=== PATIENT | female | born 1935 | race Caucasian/White ===

== ENCOUNTER → 2019-01-19 09:19 | Outpatient (CLI) | payer MEDICARE, OTHER, SELFPAY ==
[2019-01-19 10:27] LABS: Blood Urea Nitrogen 21 mg/dL (7-17); Calcium 10.4 mg/dL (8.4-10.2); Carbon Dioxide 27 mmol/L (22-32); Chloride 101 mmol/L (98-107); Cholesterol 179 mg/dL (140-199); Glucose 129 mg/dL (80-110); HDL Cholesterol 58 mg/dL (40-60); HEMOLYSIS < 15 (0-50); LDL Cholesterol Calculated 97 mg/dL (<100); Potassium 3.6 mmol/L (3.4-5.1); Sodium 138 mmol/L (137-145); Triglycerides 122 mg/dL (35-150)
== END ==
PROVIDERS: PCP Internal Medicine; Visit Provider Internal Medicine
DX: I10 Essential (primary) hypertension (principal); E78.00 Pure hypercholesterolemia, unspecified; E83.52 Hypercalcemia
CPT/HCPCS: 36415; 80048; 80061

== ENCOUNTER → 2019-02-20 14:35 | Outpatient (CLI) | payer MEDICARE, OTHER, SELFPAY ==
--- NOTE | 2019-02-21 13:22 | DI.NM.S_ITS ---
DATE OF SERVICE: 02/20/2019 ORDERING PROVIDER: Jose A Mendoza MD PROCEDURE PERFORMED: Pharmacologic vasodilator stress and rest myocardial perfusion imaging with gating to assess ejection fraction and regional wall motion. INDICATIONS: The patient is an 84-year-old female with exertional chest discomfort who recently was unable to complete a standard treadmill test because of dyspnea. CARDIAC STRESS: Per protocol, the patient was given 0.4 mg of regadenoson IV with additional stress by walking on the treadmill. With this, she had an accelerated heart response with a resting heart rate of 108 bpm increasing to a maximum of 138 bpm (100% of her predicted maximum). She had a normal blood pressure response. She had no chest discomfort but mild dyspnea. Her resting ECG shows sinus rhythm with fairly normal ST-segment shifts. There were no significant ST-segment shifts or arrhythmias. Per protocol, she was injected with 25.5 mCi of technetium-99 Myoview and was imaged 20 minutes later using a gated SPECT acquisition protocol. She returned the following day and was reinjected with an additional 26.3 mCi of technetium- 99 Myoview and was imaged 30 minutes later, again using a quantitated gated SPECT protocol. FINDINGS: 1. Raw Data: There is fairly good myocardial tracer uptake with mild-to- moderate breast shadows noted. The lung/heart ratio is normal at 0.29 with a normal TID ratio of 0.81. 2. Quantitative Gated SPECT: Post stress ejection fraction is estimated at 84% with normal wall motion, and specifically, the distal anterior wall has brisk contractility. The resting ejection fraction is estimated at 76% with an end- diastolic volume of 62 mL. 3. Myocardial Perfusion Imaging: Post stress supine images show a fairly normal myocardial perfusion pattern with a very subtle defect in the distal anterior wall but sparing the apex in a pattern that would be consistent with breast attenuation artifact although this defect persists to some degree on the prone images. There are no other perfusion defects. The resting images show a similar perfusion pattern with a more notable distal anterior defect that now has shifted more medially, suggestive of breast attenuation artifact with differential breast positioning. There are no areas of improvement. IMPRESSION: 1. Probable normal myocardial perfusion study. 2. Subtle, fixed distal anterior defect that spares the apex. While this defect persists on the prone images, this most likely reflects breast attenuation artifact given its position and absence of any wall motion abnormality in this distribution and supported by the slight shifting medially of the defect on the resting images suggesting differential breast positioning. Yet, a small nontransmural infarction cannot be entirely excluded but there is no evidence for any myocardial ischemia. 3. Normal left ventricular systolic function without any focal wall motion abnormality. 4. No angina or ECG evidence of ischemia with combination of exercise and pharmacologic vasodilator stress.. Krupa Solis - MARYANN/alvarado/ab doc#: [id number]/job#: [id number] dd: 02/21/2019 12:06:00 dt: 02/21/2019 13:05:00 DICTATING MD/COPIES TO: Chris Rowley MD; Jose A Mendoza MD; MURB COPIES MNE: DAI
== END ==
PROVIDERS: PCP Internal Medicine; Visit Provider Internal Medicine
DX: R07.89 Other chest pain (principal)
CPT/HCPCS: 78452; 93016; 93017; 93018; A9502; J2785

== ENCOUNTER 2019-09-22 08:42 | Emergency (ER) | payer MEDICARE, OTHER, SELFPAY ==
[2019-09-22 08:50] VITALS: BP 175/81; PULSE 108; RESP 14; TEMP 36.8; O2SAT 96; BMI 29.2
--- NOTE | 2019-09-22 08:50 | DI.RAD.S_ITS ---
PROCEDURE: XR WRIST RT MIN 3V INDICATIONS: injury/swelling TECHNIQUE: Four views of the wrist were acquired. COMPARISON: None. FINDINGS: Bones: No fractures or dislocations. No suspicious bony lesions. Numerous small subcortical and intraosseous rounded lucencies in the radial styloid, proximal carpal row, at the metacarpal bases, and most significantly at the 1st carpometacarpal joint. There is joint space loss and subcortical sclerosis at the 1st CMC joint. Similar degenerative changes are present at the 1st interphalangeal joint and to lesser extent MCP joint. Scaphoid view: No scaphoid fractures. Multiple small intraosseous cysts. Soft tissues: No suspicious soft tissue calcifications. Hypertrophic productive bone changes seen on either side of the 1st CMC joint. IMPRESSION: 1. No visible fracture. 2. 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 3. Numerous intraosseous cysts as described. 4. If there is continued concern for occult fracture, immobilization and reimaging is recommended. Dictated by: Francheska Us M.D. on 09/22/2019 at 9:13 Approved by: Francheska Us M.D. on 09/22/2019 at 9:16
--- NOTE | 2019-09-22 09:26 | ED.UPPEXIN ---
HPI - Extremity Injury (Upper) General Chief Complaint: Extremity Injury, Upper Stated Complaint: fell yesterday injured right wrist Time Seen by Provider: 09/22/19 09:12 Source: patient Mode of arrival: Ambulatory History of Present Illness HPI narrative: CC: Fall with injury right hand, wrist HPI: The patient was registered initially as having abdominal pain after she fell yesterday. However she is denying any abdominal pain or discomfort. The patient is complaining that she injured her right wrist without any other injury. The patient states that she was rushing to use the bathroom and missed the seat fell and injured her right wrist on the top. She denies any other injury. She thought that she just bruised it but the pain has continued. She has had no headache no head injury neck injury neck pain back pain chest pain belly pain shortness of breath cough nausea vomiting or incontinence of urine. She admits to being left-hand dominant. Her pain is 7-10 over 10 in intensity. 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 She was able to sleep last night after she took Tylenol p.m.. The patient is a former smoker years ago in her youth does not drink alcohol or use any marijuana or drug products. Related Data Home Medications Medication Instructions Recorded Confirmed HYDROCHLOROTHIAZIDE (Hydrodiuril / 0 PO * [place] DOSE/FREQUENCY #0 08/25/06 Hctz) Previous Rx's Medication Instructions Recorded hydrocodone-acetaminophen [Campti] 1 tab PO Q4-6H PRN #12 tab 09/22/19 Allergies Allergy/AdvReac Type Severity Reaction Status Date / Time No Known Drug Allergies Allergy Verified 09/22/19 08:50 Review of Systems Review of Systems Narrative: Her review of systems were essentially all negative except for those mentioned in the history of present illness. Exam Narrative Exam Narrative: PHYSICAL EXAM: CONSTITUTIONAL: Awake, Alert, Oriented, Coherent, Cooperative in NAD. Sitting upright in bed. HEAD: AT/NC EENT: PERRL, FROM of eyes, no discharge, no nystagmus NOSE:No epistaxis or nasal drainage MOUTH:Oral mucosa is moist and pink, posterior pharynx is without erythema or exudate. NECK: Supple, no obvious JVD, Trachea is midline without stridor, no palpable LN. SPINE: Palpation of the cervical, Thoracic, Lumbar or Sacral spine reveals no gross deformity or tenderness. No CVA tenderness. THORAX: No deformity, retractions, chest wall tenderness. LUNGS: Clear, symmetrical breath sounds without respiratory distress. HEART: Normal heart tones, regular rhythm and rate without murmur. ABDOMEN: Soft, non-tender, normal bowel sounds without guarding, rebound, rigidity or palpable mass. EXTREMITIES: The patient's right radial pulse is intact and 1+. The patient has good capillary refill and sensation. She is able to flex extend abduct and adduct her fingers. The patient is primarily tender arm over the distal carpal bones of her right wrist and the base of her proximal metacarpal of her right thumb. This area is exquisitely tender to palpation. There is no tenderness or deformity appreciated over the distal radius or ulna. SKIN: No rash, bruising, petechiae or purpura. NEURO: Awake, alert, oriented, conversive, cranial nerves II-XII are symmetrical , moves all 4 extremities and is ambulatory. MENTAL HEALTH: Does not appear anxious or depressed. Initial Vital Signs Initial Vital Signs: Vital Signs Temperature 98.3 F 09/22/19 08:50 Pulse Rate 108 H 09/22/19 08:50 Respiratory Rate 14 09/22/19 08:50 Blood Pressure 175/81 H 09/22/19 08:50 Pulse Oximetry 96 09/22/19 08:50 Course Course Course Narrative: 0927: My review of the patient's x-ray of her right wrist revealed that she has an impacted comminuted fracture of the proximal end of the metacarpal bone of the right thumb. The patient will be placed in a thumb spica wrist splint. 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 I did not appreciate a fracture of the scaphoid or other carpal bones. The patient will be referred to Dr. Garcia orthopedic surgeon on-call. Orders Ordered: Discontinued Medications Hydrocodone Bitart/Acetaminophen (Campti 5/325) 1 tab PO NOW ONE Stop: 09/22/19 09:21 Last Admin: 09/22/19 09:33 Dose: 1 tab Documented by: SCANAPO Vital Signs Vital signs: Vital Signs - 8 hr 09/22/19 08:50 Temperature 98.3 F Pulse Rate 108 H Respiratory Rate 14 Blood Pressure 175/81 H Pulse Oximetry 96 Discharge Plan Departure Patient Disposition: Home Clinical Impression: First metacarpal bone fracture Qualifiers: Encounter type: initial encounter Fracture type: closed Metacarpal location: base Fracture morphology: unspecified fracture morphology Fracture alignment: displaced Laterality: right Qualified Code(s): S62.231A - Other displaced fracture of base of first metacarpal bone, right hand, initial encounter for closed fracture Discharge Date/Time: 09/22/19 09:56 Instructions: DI for Wrist Fracture, DI for Fracture Activity Restrictions/Additional Instructions: 1. Leave the splint on your hand and thumb and to immobilize the fracture and provide pain relief. 2. For severe pain and discomfort you can take 1 Campti 5/325 every 4-6 hours. This medication may make you sleepy and may increase her risk of fall falling and unsteady walking. 3. Whenever possible try and take Tylenol for your pain and discomfort 500 mg every 4-6 hours. 4. Apply ice to the area of fracture pain and discomfort every 2 hours for 20-30 minutes or as long as tolerated. 5. Call and make a follow-up appointment with the [facility] Dr. Garcia who is on-call for the ED today. 6. If you fall or injure yourself develop worsening pain or discomfort chest pain, shortness of breath, dizziness, persistent nausea and vomiting you need to return to the emergency department. Prescriptions: New hydrocodone-acetaminophen [Campti] 5-325 mg tablet 1 tab PO Q4-6H PRN (Reason: pain) Qty: 12 RF: 0 No Action HYDROCHLOROTHIAZIDE (Hydrodiuril / Hctz) 0 PO * [place] DOSE/FREQUENCY Qty: 0 RF: 0 Referrals: Jose A Mendoza MD [Primary Care Provider] -
[2019-09-22] MEDS: HYDROCODONE/ACET 5/325 TABLET 1 TAB PO (09:33)
[2019-09-22 09:55] VITALS: BP 167/74; PULSE 70; RESP 15; O2SAT 100
== END 2019-09-22 09:56 | disposition home or self-care (01) ==
PROVIDERS: Emergency Provider Emergency Medicine; PCP Internal Medicine
DX: S62.231A Other displaced fracture of base of first metacarpal bone, right hand, initial encounter for closed fracture (principal); M85.841 Other specified disorders of bone density and structure, right hand; W19.XXXA Unspecified fall, initial encounter
CPT/HCPCS: 29125; 73110; 99283; 99284

== ENCOUNTER → 2019-10-17 08:52 | Outpatient (CLI) | payer MEDICARE, OTHER, SELFPAY ==
[2019-10-17 10:00] LABS: BUN Creatinine Ratio 19.4 (6-22); Blood Urea Nitrogen 19 mg/dL (7-17); Calcium 10.5 mg/dL (8.4-10.2); Carbon Dioxide 26 mmol/L (22-32); Chloride 98 mmol/L (98-107); Estimated Glomerular Filt Rate 54.2 mL/min (>60); Glucose 119 mg/dL (80-110); HEMOLYSIS < 15 (0-50); Potassium 3.7 mmol/L (3.4-5.1); Sodium 133 mmol/L (137-145)
== END ==
PROVIDERS: PCP Internal Medicine; Referring Provider Internal Medicine; Visit Provider Internal Medicine
DX: I10 Essential (primary) hypertension (principal); E83.52 Hypercalcemia
CPT/HCPCS: 36415; 80048; 83970

== ENCOUNTER 2019-12-04 12:20 | Emergency (ER) | payer MEDICARE, OTHER, SELFPAY ==
[2019-12-04] VITALS (10 sets, daily range): BP systolic 146–191; BP diastolic 64–89; PULSE 89–113; RESP 12–27; TEMP 37.1; O2SAT 94–99
--- NOTE | 2019-12-04 12:29 | DI.RAD.S_ITS ---
PROCEDURE: XR CHEST 1V INDICATIONS: chest / epigastric pain, worse w/ deep breath TECHNIQUE: One view of the chest was acquired. COMPARISON: [facility], , CHEST 1 VIEW, 08/25/2006, 5:27. FINDINGS: Surgical changes and devices: None. Lungs and pleura: Pulmonary vascular congestion is seen. Increased interstitial reticular markings are noted. No definite focal infiltrate. No pleural effusions or pneumothorax. Mediastinum: Mediastinal contours appear normal. Heart size is normal. Bones and chest wall: No suspicious bony lesions. Overlying soft tissues appear unremarkable. IMPRESSION: Mild pulmonary vascular congestion. No definite focal infiltrate, pleural effusion or pneumothorax. Dictated by: Colten Welch M.D. on 12/04/2019 at 13:07 Approved by: Colten Welch M.D. on 12/04/2019 at 13:09
--- NOTE | 2019-12-04 12:34 | ED_ITS ---
HPI - Abdominal Pain <MAYA Camp - Last Filed: 12/04/19 20:28> General Chief Complaint: Chest Pain Stated Complaint: Upper Stomach Pains Time Seen by Provider: 12/04/19 12:23 Source: patient Mode of arrival: Ambulatory Limitations: no limitations History of Present Illness HPI narrative: 84yo female with history of hypertension presents to emergency department for intermittent epigastric pain for the past 3 days. Patient states the pain is an intermittent burning as worse when she changes position and takes a deep breath. She states the pain is better when she lies on her back. She has decreased appetite but no nausea or vomiting. Patient states occasionally she feels short of breath but it is really when she tries to take a deep breath. She denies any fevers, chills, dizziness, syncope, cough, sore throat, chest pain, diarrhea, nausea, or vomiting. Patient denies any history of cardiac issues or operations. Denies any gastric surgeries. Related Data Home Medications Medication Instructions Recorded Confirmed amlodipine 5 mg PO QNOON 12/04/19 12/04/19 aspirin 81 mg PO BEDTIME 12/04/19 12/04/19 hydrochlorothiazide 25 mg PO QNOON 12/04/19 12/04/19 losartan 100 mg PO QNOON 12/04/19 12/04/19 lovastatin 40 mg PO BEDTIME 12/04/19 12/04/19 Previous Rx's Medication Instructions Recorded omeprazole 20 mg PO DAILY 14 Days #14 cap 12/04/19 Allergies Allergy/AdvReac Type Severity Reaction Status Date / Time No Known Drug Allergies Allergy Verified 12/04/19 12:29 Review of Systems <MAYA Camp - Last Filed: 12/04/19 20:28> Review of Systems Narrative: REVIEW OF SYSTEMS: GENERAL: Denies fever. HENT: No head trauma. EYES: No vision changes. CARDIOVASCULAR: No chest pain. RESPIRATORY: Patient reports increased pain when taking deep breath, see HPI. GASTROINTESTINAL: Complains of epigastric abdominal pain, see HPI GENITOURINARY: No flank pain, urinary incontinence, hesitancy, frequency, or dysuria. MUSCULOSKELETAL: No pain, weakness, or trauma. INTEGUMENTARY: No rash. NEURO: No numbness or tingling. PSYCH: No behavior or mood changes. Patient History <MAYA Camp - Last Filed: 12/04/19 20:28> Medical History No significant medical problems (Acute) Social History Smoking Status: Never smoker Smoking Status: Never smoker alcohol intake frequency: 0-2 drinks per day Substance Use Type: does not use Exam <MAYA Camp - Last Filed: 12/04/19 20:28> Initial Vital Signs Initial Vital Signs: Vital Signs Temperature 98.7 F 12/04/19 12:27 Pulse Rate 113 H 12/04/19 12:27 Respiratory Rate 24 12/04/19 12:27 Blood Pressure 191/89 H 12/04/19 12:27 Pulse Oximetry 94 12/04/19 12:27 PHYSICAL EXAMINATION: GENERAL: Well groomed, alert, and cooperative. Answers questions promptly and appropriately. Vital signs noted. HENT: Normocephalic, atraumatic. Hearing intact. Oral mucosa is pink and moist. EYES: Conjunctiva pink, sclera white, no periorbital swelling. CARDIOVASCULAR: S1 and S2 sounds normal. Tachycardia and rhythm, no murmurs, clicks, or bruits. No pedal edema. RESPIRATORY: Normal respiratory rate, trachea midline, airway patent. No stridor, nasal flaring or accessory muscle use. Lungs are clear in all kiser without wheeze, rhonchi, or crackles. GASTROINTESTINAL: Bowel sounds normoactive. Abdomen is soft , epigastric tenderness. No organomegaly, no palpable masses. GENITALURINARY: No flank tenderness. MUSCULOSKELETAL: Normal gait and coordination. Equal tone and mass bilaterally. EXTREMITIES: CMS intact, no pedal edema. SKIN: Warm, dry, soft, appropriate color for ethnicity. No lesions, rashes, or wounds to visualized areas. NEURO: Alert and Oriented X 3. Good coordination. No ataxia, or sensory deficits, or cognitive issues. PSYCH: Appropriate affect and mood. <Genoveva Gautam DO - Last Filed: 12/13/19 07:51> Initial Vital Signs Initial Vital Signs: Vital Signs Temperature 98.7 F 12/04/19 12:27 Pulse Rate 113 H 12/04/19 12:27 Respiratory Rate 24 12/04/19 12:27 Blood Pressure 191/89 H 12/04/19 12:27 Pulse Oximetry 94 12/04/19 12:27 Scores <MAYA Camp - Last Filed: 12/04/19 20:28> HEART Score Heart Score history: Slightly Suspicious Heart Score EKG: Normal Heart Score Age: > or = 65 years old Heart Score risk factors: 1-2 risk factors Heart Score troponin: < or = to normal limit Heart Score Total: 3 Wells' Criteria for PE Clinical signs and symptoms of DVT: No PE is #1 Dx or equally likely: No Heart rate > 100: Yes Immobilization at least 3 days or surg in previous 4 weeks: No History of PE or DVT: No Hemoptysis: No Malignancy w/Treatment within 6 months or palliative: No Wells' PE Score total: 1.5 Course <MAYA Camp - Last Filed: 12/04/19 20:28> Course Course Narrative: Initially, D-dimer was ordered due to tachycardia and oxygen administration 95%, CT angio then ordered due to elevated D-dimer despite age adjusted calculation. Patient reports significant improvement epigastric after administration of GI cocktail. Orders Ordered: Discontinued Medications Al Hydrox/Mg Hydrox/Simethicone 20 ml/ Lidocaine HCl 15 ml 0 ml PO NOW ONE Stop: 12/04/19 14:27 Last Admin: 12/04/19 14:32 Dose: 20 ml Documented by: [facility] Sodium Chloride (Normal Saline 0.9%) 1,000 mls @ 150 mls/hr IV CONT ARIELA Last Infusion: 12/04/19 15:42 Dose: 0 mls/hr Documented by: Admin: 12/04/19 13:46 Dose: 150 mls/hr Documented by: [facility] Pantoprazole Sodium (Protonix) 40 mg IV NOW ONE Stop: 12/04/19 12:39 Last Admin: 12/04/19 13:43 Dose: 40 mg Documented by: [facility] Consultations Consultation #1: Patient staffed with Dr. Gautam discussed test, test results, plan of care. Vital Signs Vital signs: Vital Signs - 8 hr 12/04/19 12:27 12/04/19 12:28 12/04/19 12:30 Temperature 98.7 F Pulse Rate 113 H 110 H 109 H Respiratory Rate 24 27 H 20 Blood Pressure 191/89 H 159/77 H Pulse Oximetry 94 96 94 12/04/19 13:00 12/04/19 13:30 12/04/19 13:55 Temperature Pulse Rate 91 H 96 H 104 H Respiratory Rate 23 17 12 Blood Pressure 164/77 H 163/89 H 186/86 H Pulse Oximetry 96 99 99 12/04/19 14:00 12/04/19 14:30 12/04/19 15:00 Temperature Pulse Rate 98 H 94 H 91 H Respiratory Rate 18 14 22 Blood Pressure 169/77 H 166/76 H 146/66 H Pulse Oximetry 98 97 96 12/04/19 15:30 Temperature Pulse Rate 89 Respiratory Rate 22 Blood Pressure 147/64 H Pulse Oximetry 97 <Genoveva Gautam, DO - Last Filed: 12/13/19 07:51> Orders Ordered: Discontinued Medications Al Hydrox/Mg Hydrox/Simethicone 20 ml/ Lidocaine HCl 15 ml 0 ml PO NOW ONE Stop: 12/04/19 14:27 Last Admin: 12/04/19 14:32 Dose: 20 ml Documented by: [facility] Sodium Chloride (Normal Saline 0.9%) 1,000 mls @ 150 mls/hr IV CONT ARIELA Last Infusion: 12/04/19 15:42 Dose: 0 mls/hr Documented by: Admin: 12/04/19 13:46 Dose: 150 mls/hr Documented by: [facility] Pantoprazole Sodium (Protonix) 40 mg IV NOW ONE Stop: 12/04/19 12:39 Last Admin: 12/04/19 13:43 Dose: 40 mg Documented by: [facility] Vital Signs Vital signs: Vital Signs - 8 hr 12/04/19 12:27 12/04/19 12:28 12/04/19 12:30 Temperature 98.7 F Pulse Rate 113 H 110 H 109 H Respiratory Rate 24 27 H 20 Blood Pressure 191/89 H 159/77 H Pulse Oximetry 94 96 94 12/04/19 13:00 12/04/19 13:30 12/04/19 13:55 Temperature Pulse Rate 91 H 96 H 104 H Respiratory Rate 23 17 12 Blood Pressure 164/77 H 163/89 H 186/86 H Pulse Oximetry 96 99 99 12/04/19 14:00 12/04/19 14:30 12/04/19 15:00 Temperature Pulse Rate 98 H 94 H 91 H Respiratory Rate 18 14 22 Blood Pressure 169/77 H 166/76 H 146/66 H Pulse Oximetry 98 97 96 12/04/19 15:30 Temperature Pulse Rate 89 Respiratory Rate 22 Blood Pressure 147/64 H Pulse Oximetry 97 MDM - Abdominal Pain <MAYA Camp - Last Filed: 12/04/19 20:28> Medical Records Attestation: I reviewed the patient's medical records. Lab Data Attestation: I reviewed the patient's lab results. Result diagrams: 12/04/19 12:30 12/04/19 12:30 Labs: Lab Results 12/04/19 12/04/19 12/04/19 Range/Units 12:30 12:30 12:30 WBC 11.8 H (4.5-11.0) X10^3/uL RBC 3.82 L (4.0-5.2) X10^6/uL Hgb 12.9 (12.0-16.0) g/dL Hct 36.3 (36-46) % MCV 94.9 (80-100) fL MCH 33.6 (26-34) PG MCHC 35.4 (30-36) % RDW 12.8 (11.6-14.8) % Plt Count 253 (150-400) X10^3/uL Neut % (Auto) 55.6 (50-75) % Lymph % (Auto) 32.3 (25-40) % [place] % (Auto) 9.7 (3-14) % Eos % (Auto) 1.9 L (2-4) % Baso % (Auto) 0.5 (0-2) % Neut # (Auto) 6600 (6220-7568) /uL Lymph # (Auto) 3800 (7828-8363) /uL [place] # (Auto) 1100 H (0-900) /uL Eos # (Auto) 200 (0-450) /uL Baso # (Auto) 100 (0-100) /uL PT 12.0 (10.1-12.7) SECONDS INR 1.0 (0.9-1.3) APTT 31 (26.4-36.2) SECONDS D-Dimer 504 H (<230) ng/mL Sodium 137 (137-145) mmol/L Potassium 4.0 (3.4-5.1) mmol/L Chloride 102 (98-107) mmol/L Carbon Dioxide 29 (22-32) mmol/L BUN 19 H (7-17) mg/dL Creatinine 1.06 H (0.52-1.04) mg/dL Estimated GFR 49.5 L (>60) mL/min BUN/Creatinine Ratio 17.9 (6-22) Glucose 123 H (80-110) mg/dL Calcium 10.4 H (8.4-10.2) mg/dL Total Bilirubin 0.7 (0.2-1.3) mg/dL AST 25 (14-36) IU/L ALT 18 (<35) IU/L Alkaline Phosphatase 71 (38-126) U/L Total Creatine Kinase 61 (30-135) U/L CK-MB (CK-2) TNP CK-MB (CK-2) Rel Index TNP Troponin I < 0.012 (0.01-0.034) ng/mL NT-Pro-B Natriuret Pep (<450) pg/mL Total Protein 7.9 (6.3-8.2) g/dL Albumin 4.3 (3.5-5.0) g/dL Globulin 3.6 (1.7-4.1) g/dL Albumin/Globulin Ratio 1.2 (1.0-2.8) Lipase 40 (23-300) U/L Urine RBC (0-5/HPF) Urine WBC (0-5/HPF) Urine Bacteria (None) Ur Culture Indicated? 12/04/19 12/04/19 12/04/19 Range/Units 13:00 13:57 14:44 WBC (4.5-11.0) X10^3/uL RBC (4.0-5.2) X10^6/uL Hgb (12.0-16.0) g/dL Hct (36-46) % MCV (80-100) fL MCH (26-34) PG MCHC (30-36) % RDW (11.6-14.8) % Plt Count (150-400) X10^3/uL Neut % (Auto) (50-75) % Lymph % (Auto) (25-40) % [place] % (Auto) (3-14) % Eos % (Auto) (2-4) % Baso % (Auto) (0-2) % Neut # (Auto) (8863-1778) /uL Lymph # (Auto) (8730-9666) /uL [place] # (Auto) (0-900) /uL Eos # (Auto) (0-450) /uL Baso # (Auto) (0-100) /uL PT (10.1-12.7) SECONDS INR (0.9-1.3) APTT (26.4-36.2) SECONDS D-Dimer (<230) ng/mL Sodium (137-145) mmol/L Potassium (3.4-5.1) mmol/L Chloride (98-107) mmol/L Carbon Dioxide (22-32) mmol/L BUN (7-17) mg/dL Creatinine (0.52-1.04) mg/dL Estimated GFR (>60) mL/min BUN/Creatinine Ratio (6-22) Glucose (80-110) mg/dL Calcium (8.4-10.2) mg/dL Total Bilirubin (0.2-1.3) mg/dL AST (14-36) IU/L ALT (<35) IU/L Alkaline Phosphatase (38-126) U/L Total Creatine Kinase (30-135) U/L CK-MB (CK-2) CK-MB (CK-2) Rel Index Troponin I < 0.012 (0.01-0.034) ng/mL NT-Pro-B Natriuret Pep 108 (<450) pg/mL Total Protein (6.3-8.2) g/dL Albumin (3.5-5.0) g/dL Globulin (1.7-4.1) g/dL Albumin/Globulin Ratio (1.0-2.8) Lipase (23-300) U/L Urine RBC 0-1/hpf (0-5/HPF) Urine WBC None seen (0-5/HPF) Urine Bacteria None seen (None) Ur Culture Indicated? Cult not indicated Point of care testing: Urine Dip Bedside Urine Glucose Negative Bedside Urine Bilirubin - Negative Bedside Urine Ketone - Negative Urine Specific [place] 1.015 Bedside Urine Occult Blood +/- Bedside Urine pH 6.5 Bedside Urine Protein - Negative Bedside Urine Urobilinogen - Negative Bedside Urine Nitrite - Negative Bedside Urine Leukocytes - Negative Esterase Imaging Data Chest CTA: Radiologist's Impression: [address] [place] [address] CT Scan Report Signed Patient: Krupa Solis [facility]#: [id number] : 1935Acct:[id number] Age/Sex: 84 / FDate of Service: 12/04/19 Loc: ED Accession Number: [id number] Procedure: CT angio chest PE protocol Ordering Provider: Melissa Ferreira PROCEDURE: CT ANGIO CHEST PE PROTOCOL INDICATIONS: SOB, + d-dimer TECHNIQUE: After the administration of intravenous contrast, 2 mm thick sections acquired from the pulmonary apices to the posterior costophrenic angles. 3-dimensional maximum intensity projection (MIP) coronal and sagittal reformats were then acquired through the thorax. For radiation dose reduction, the following was used: automated exposure control, adjustment of mA and/or kV according to patient size. COMPARISON: Formerly [facility], , XR CHEST 1V, 12/04/2019, 12:34. FINDINGS: Image quality: Excellent. Pulmonary arteries: Pulmonary arteries are normal in size, and demonstrate no intraluminal filling defects to suggest pulmonary embolism. Lungs and pleura: Bilateral peripheral and predominantly dependent reticular th ickening. Nodular opacity at the right major fissure measuring at 0.5 cm, (5/132). No pleural effusions or pneumothorax. Central and peripheral airways are patent. Mediastinum: Heart size is normal, without pericardial effusion. Coronary artery calcifications. No mediastinal or hilar adenopathy. Thoracic aorta is normal in caliber and enhancement. 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 Question of thickening of the distal esophagus. Small hiatal hernia. Bones and chest wall: No suspicious bony lesions. Ribs and thoracic spine appear intact throughout. Thyroid gland is unremarkable. No axillary or supraclavicular adenopathy. Abdomen: Visualized upper abdominal solid organs appear normal in the early arterial phase of enhancement. IMPRESSION: 1. No pulmonary embolism. 2. Bilateral peripheral and predominantly dependent reticular thickening. Suspect mild pulmonary edema and atelectasis. Fibrosis could have this appearance. 3. No pleural effusion. 4. No consolidative opacity to suggest pneumonia. 5. A 5 mm nodular opacity in the right lower lobe. This could represent an intrapulmonary lymph node. -Consider follow-up chest CT in 12 months. Dictated by: Pedro Scanlon M.D. on 12/04/2019 at 13:41 Approved by: Pedro Scanlon M.D. on 12/04/2019 at 13:51 Chest x-ray: Radiologist's Impression: [address] [address] XRay Report Signed Patient: Krupa Solis [facility]#: [id number] : 6Acct:[id number] Age/Sex: 84 / FDate of Service: 12/04/19 Loc: ED Accession Number: [id number] Procedure: XR chest 1V Ordering Provider: Melissa Ferreira PROCEDURE: XR CHEST 1V INDICATIONS: chest / epigastric pain, worse w/ deep breath TECHNIQUE: One view of the chest was acquired. COMPARISON: Former[facility], , CHEST 1 VIEW, 08/25/2006, 5:27. FINDINGS: Surgical changes and devices: None. Lungs and pleura: Pulmonary vascular congestion is seen. Increased inters titial reticular markings are noted. No definite focal infiltrate. No pleural effusions or pneumothorax. Mediastinum: Mediastinal contours appear normal. Heart size is normal. Bones and chest wall: No suspicious bony lesions. Overlying soft tissues appear unremarkable. IMPRESSION: Mild pulmonary vascular congestion. No definite focal infiltrate, pleural effusion or pneumothorax. Dictated by: Colten Welch M.D. on 12/04/2019 at 13:07 Approved by: Colten Welch M.D. on 12/04/2019 at 13:09 US - abdomen: Radiologist's Impression: [address] [address] Ultrasound Report Signed Patient: Krupa Solis [facility]#: [id number] : 6At:[id number] Age/Sex: 84 / FDate of Service: 12/04/19 Loc: ED Accession Number: [id number] Procedure: US abdomen limited Ordering Provider: Melissa Ferreira PROCEDURE: US ABDOMEN LIMITED INDICATIONS: EPIGASTRIC AND RUQ PAIN. EVALUATE GALLBLADDER TECHNIQUE: Real-time scanning was performed of the abdominal and retroperitoneal organs, with image documentation. COMPARISON: None. FINDINGS: Liver: Liver is normal in size . Increased liver parenchymal echotexture is seen. No discrete hepatic lesion. Gallbladder: There is no gallstone. No pericholecystic fluid or sonographic Beatty sign. Partially contracted gallbladder shows mildly prominent gallbladder wall thickness measures up to 2.9 mm. Biliary ducts: Intrahepatic bile ducts are non-dilated. Extrahepatic bile duct caliber are not well seen. Normal is 6-7 mm or less in diameter, or 10 mm or less post-cholecystectomy. Pancreas: Pancreas is not well seen due to overlying bowel gas. Miscellaneous: No free abdominal fluid. IMPRESSION: 1. Hepatic steatosis, no discrete hepatic lesion. 2. No evidence of cholelithiasis or acute cholecystitis. 3. No gross biliary ductal dilatation. Dictated by: Colten Welch M.D. on 12/04/2019 at 14:13 Approved by: Colten Welch M.D. on 12/04/2019 at 14:15 ECG Data Interpretation: 1230: Tachycardia, rate 107, MS interval 192. QTC 437. No ST elevation or ST depression. No T-wave abnormality. No ectopy. EKG also viewed by Dr. Gautam per protocol. 1436: Sinus rhythm, rate 96, MS interval 186, QTC 442. No ST elevation or ST depression. No T-wave abnormality. One PAC noted. EKG also viewed by Dr. Gautam per protocol. MDM Narrative Medical decision making narrative: 84-year-old female presents to the emergency department for epigastric pain for the past few days. I suspect patient's pain is most likely caused by GERD, given lack of other findings and significant improvement of symptoms after administration of GI cocktail. Less likely cardiac etiology given serial negative EKGs and troponin, chest x- ray negative, and heart score 3 making her low risk, no indication for admission.. Less likely PE given negative chest CT angio which was ordered due to elevated D-dimer in complains of shortness of breath, tachycardia, and oxygen saturation at 95%. Less likely gallbladder etiology given normal lipase, liver enzymes within normal limits and negative ultrasound showing no cholelithiasis or chol ecystitis. Patient was started on a proton pump inhibitor, she was encouraged to follow up with PCP for discussion of further testing and evaluation. Return precautions given for new or worsening symptoms, she agrees to plan of care verbalized understanding. <Genoveva Gautam, DO - Last Filed: 12/13/19 07:51> Lab Data Labs: Lab Results 12/04/19 12/04/19 12/04/19 Range/Units 12:30 12:30 12:30 WBC 11.8 H (4.5-11.0) X10^3/uL RBC 3.82 L (4.0-5.2) X10^6/uL Hgb 12.9 (12.0-16.0) g/dL Hct 36.3 (36-46) % MCV 94.9 (80-100) fL MCH 33.6 (26-34) PG MCHC 35.4 (30-36) % RDW 12.8 (11.6-14.8) % Plt Count 253 (150-400) X10^3/uL Neut % (Auto) 55.6 (50-75) % Lymph % (Auto) 32.3 (25-40) % [place] % (Auto) 9.7 (3-14) % Eos % (Auto) 1.9 L (2-4) % Baso % (Auto) 0.5 (0-2) % Neut # (Auto) 6600 (5195-3575) /uL Lymph # (Auto) 3800 (4374-7016) /uL [place] # (Auto) 1100 H (0-900) /uL Eos # (Auto) 200 (0-450) /uL Baso # (Auto) 100 (0-100) /uL PT 12.0 (10.1-12.7) SECONDS INR 1.0 (0.9-1.3) APTT 31 (26.4-36.2) SECONDS D-Dimer 504 H (<230) ng/mL Sodium 137 (137-145) mmol/L Potassium 4.0 (3.4-5.1) mmol/L Chloride 102 (98-107) mmol/L Carbon Dioxide 29 (22-32) mmol/L BUN 19 H (7-17) mg/dL Creatinine 1.06 H (0.52-1.04) mg/dL Estimated GFR 49.5 L (>60) mL/min BUN/Creatinine Ratio 17.9 (6-22) Glucose 123 H (80-110) mg/dL Calcium 10.4 H (8.4-10.2) mg/dL Total Bilirubin 0.7 (0.2-1.3) mg/dL AST 25 (14-36) IU/L ALT 18 (<35) IU/L Alkaline Phosphatase 71 (38-126) U/L Total Creatine Kinase 61 (30-135) U/L CK-MB (CK-2) TNP CK-MB (CK-2) Rel Index TNP Troponin I < 0.012 (0.01-0.034) ng/mL NT-Pro-B Natriuret Pep (<450) pg/mL Total Protein 7.9 (6.3-8.2) g/dL Albumin 4.3 (3.5-5.0) g/dL Globulin 3.6 (1.7-4.1) g/dL Albumin/Globulin Ratio 1.2 (1.0-2.8) Lipase 40 (23-300) U/L Urine RBC (0-5/HPF) Urine WBC (0-5/HPF) Urine Bacteria (None) Ur Culture Indicated? 12/04/19 12/04/19 12/04/19 Range/Units 13:00 13:57 14:44 WBC (4.5-11.0) X10^3/uL RBC (4.0-5.2) X10^6/uL Hgb (12.0-16.0) g/dL Hct (36-46) % MCV (80-100) fL MCH (26-34) PG MCHC (30-36) % RDW (11.6-14.8) % Plt Count (150-400) X10^3/uL Neut % (Auto) (50-75) % Lymph % (Auto) (25-40) % [place] % (Auto) (3-14) % Eos % (Auto) (2-4) % Baso % (Auto) (0-2) % Neut # (Auto) (8060-1687) /uL Lymph # (Auto) (3597-2561) /uL [place] # (Auto) (0-900) /uL Eos # (Auto) (0-450) /uL Baso # (Auto) (0-100) /uL PT (10.1-12.7) SECONDS INR (0.9-1.3) APTT (26.4-36.2) SECONDS D-Dimer (<230) ng/mL Sodium (137-145) mmol/L Potassium (3.4-5.1) mmol/L Chloride (98-107) mmol/L Carbon Dioxide (22-32) mmol/L BUN (7-17) mg/dL Creatinine (0.52-1.04) mg/dL Estimated GFR (>60) mL/min BUN/Creatinine Ratio (6-22) Glucose (80-110) mg/dL Calcium (8.4-10.2) mg/dL Total Bilirubin (0.2-1.3) mg/dL AST (14-36) IU/L ALT (<35) IU/L Alkaline Phosphatase (38-126) U/L Total Creatine Kinase (30-135) U/L CK-MB (CK-2) CK-MB (CK-2) Rel Index Troponin I < 0.012 (0.01-0.034) ng/mL NT-Pro-B Natriuret Pep 108 (<450) pg/mL Total Protein (6.3-8.2) g/dL Albumin (3.5-5.0) g/dL Globulin (1.7-4.1) g/dL Albumin/Globulin Ratio (1.0-2.8) Lipase (23-300) U/L Urine RBC 0-1/hpf (0-5/HPF) Urine WBC None seen (0-5/HPF) Urine Bacteria None seen (None) Ur Culture Indicated? Cult not indicated Point of care testing: Urine Dip Bedside Urine Glucose Negative Bedside Urine Bilirubin - Negative Bedside Urine Ketone - Negative Urine Specific [place] 1.015 Bedside Urine Occult Blood +/- Bedside Urine pH 6.5 Bedside Urine Protein - Negative Bedside Urine Urobilinogen - Negative Bedside Urine Nitrite - Negative Bedside Urine Leukocytes - Negative Esterase Discharge Plan Departure Patient Disposition: Home Clinical Impression: GERD (gastroesophageal reflux disease) Qualifiers: Esophagitis presence: esophagitis presence not specified Qualified Code(s): K21.9 - Gastro-esophageal reflux disease without esophagitis Discharge Date/Time: 12/04/19 15:49 Instructions: DI for Gastroesophageal Reflux Disease (GERD) Activity Restrictions/Additional Instructions: Thank you for entrusting me with your care today. As discussed, your CT, ultrasound, urine, EKGs, and laboratory work are non-remarkable. I suspect your symptoms are most likely caused by acid reflux. I prescribed you a medication to take every morning to help reduce the acid in your stomach. Please follow-up with your primary care provider in 1-2 weeks for further evaluation and discussion of continued testing and management when indicated. Return emergency department for any new or worsening symptoms. Prescriptions: New omeprazole 20 mg capsule,delayed release(DR/EC) 20 mg PO DAILY 14 Days Qty: 14 RF: 0 No Action amlodipine 5 mg tablet 5 mg PO QNOON RF: 0 lovastatin 40 mg tablet 40 mg PO BEDTIME RF: 0 aspirin 81 mg Tablet,Chewable 81 mg PO BEDTIME RF: 0 hydrochlorothiazide 25 mg Tablet 25 mg PO QNOON RF: 0 losartan 100 mg tablet 100 mg PO QNOON RF: 0 Referrals: Jose A Mendoza MD [Primary Care Provider] - <Genoveva Gautam DO - Last Filed: 12/13/19 07:51> Cosign ED Attending Filibertoature Attestation: I was immediately available in the department for consultation. Documentation has been reviewed. I agree with assessment and plan.
[2019-12-04 12:40] LABS: Add Manual Diff / Slide Review NO; Basophils Absolute Auto 100 /uL (0-100); Basophils Percent Auto 0.5 % (0-2); Eosinophils Absolute Auto 200 /uL (0-450); Eosinophils Percent Auto 1.9 % (2-4); Hematocrit 36.3 % (36-46); Hemoglobin 12.9 g/dL (12.0-16.0); Lymphocytes Absolute Auto 3800 /uL (1100-4500); Lymphocytes Percent Auto 32.3 % (25-40); Mean Corpuscular HGB Conc 35.4 % (30-36); Mean Corpuscular Hemoglobin 33.6 PG (26-34); Mean Corpuscular Volume 94.9 fL (80-100); Monocytes Absolute Auto 1100 /uL (0-900); Monocytes Percent Auto 9.7 % (3-14); Neutrophils Absolute Auto 6600 /uL (1500-7000); Neutrophils Percent Auto 55.6 % (50-75); Platelet Count 253 X10^3/uL (150-400); Red Blood Cell Count 3.82 X10^6/uL (4.0-5.2); Red Cell Distribution Width 12.8 % (11.6-14.8); White Blood Cell Count 11.8 X10^3/uL (4.5-11.0)
[2019-12-04 12:51] LABS: D Dimer 504 ng/mL (<230); PTT Partial Thromboplastin Tim 31 SECONDS (26.4-36.2)
[2019-12-04 12:56] LABS: Alanine Aminotransferase 18 IU/L (<35); Albumin 4.3 g/dL (3.5-5.0); Albumin Globulin Ratio 1.2 (1.0-2.8); Alkaline Phosphatase 71 U/L (38-126); Aspartate Aminotransferase 25 IU/L (14-36); BUN Creatinine Ratio 17.9 (6-22); Bilirubin Total 0.7 mg/dL (0.2-1.3); Blood Urea Nitrogen 19 mg/dL (7-17); Calcium 10.4 mg/dL (8.4-10.2); Carbon Dioxide 29 mmol/L (22-32); Chloride 102 mmol/L (98-107); Creatine Kinase 61 U/L (30-135); Estimated Glomerular Filt Rate 49.5 mL/min (>60); Globulin 3.6 g/dL (1.7-4.1); Glucose 123 mg/dL (80-110); HEMOLYSIS < 15 (0-50); Lipase 40 U/L (23-300); Sodium 137 mmol/L (137-145); Total Protein 7.9 g/dL (6.3-8.2)
--- NOTE | 2019-12-04 12:59 | DI.US.S_ITS ---
PROCEDURE: US ABDOMEN LIMITED INDICATIONS: EPIGASTRIC AND RUQ PAIN. EVALUATE GALLBLADDER TECHNIQUE: Real-time scanning was performed of the abdominal and retroperitoneal organs, with image documentation. COMPARISON: None. FINDINGS: Liver: Liver is normal in size . Increased liver parenchymal echotexture is seen. No discrete hepatic lesion. Gallbladder: There is no gallstone. No pericholecystic fluid or sonographic Beatty sign. Partially contracted gallbladder shows mildly prominent gallbladder wall thickness measures up to 2.9 mm. Biliary ducts: Intrahepatic bile ducts are non-dilated. Extrahepatic bile duct caliber are not well seen. Normal is 6-7 mm or less in diameter, or 10 mm or less post-cholecystectomy. Pancreas: Pancreas is not well seen due to overlying bowel gas. Miscellaneous: No free abdominal fluid. IMPRESSION: 1. Hepatic steatosis, no discrete hepatic lesion. 2. No evidence of cholelithiasis or acute cholecystitis. 3. No gross biliary ductal dilatation. Dictated by: Colten Welch M.D. on 12/04/2019 at 14:13 Approved by: Colten Welch M.D. on 12/04/2019 at 14:15
[2019-12-04 13:07] LABS: Troponin I < 0.012 ng/mL (0.01-0.034)
--- NOTE | 2019-12-04 13:09 | DI.CT.S_ITS ---
PROCEDURE: CT ANGIO CHEST PE PROTOCOL INDICATIONS: SOB, + d-dimer TECHNIQUE: After the administration of intravenous contrast, 2 mm thick sections acquired from the pulmonary apices to the posterior costophrenic angles. 3-dimensional maximum intensity projection (MIP) coronal and sagittal reformats were then acquired through the thorax. For radiation dose reduction, the following was used: automated exposure control, adjustment of mA and/or kV according to patient size. COMPARISON: [facility], CR, XR CHEST 1V, 12/04/2019, 12:34. FINDINGS: Image quality: Excellent. Pulmonary arteries: Pulmonary arteries are normal in size, and demonstrate no intraluminal filling defects to suggest pulmonary embolism. Lungs and pleura: Bilateral peripheral and predominantly dependent reticular thickening. Nodular opacity at the right major fissure measuring at 0.5 cm, (5/132). No pleural effusions or pneumothorax. Central and peripheral airways are patent. Mediastinum: Heart size is normal, without pericardial effusion. Coronary artery calcifications. No mediastinal or hilar adenopathy. Thoracic aorta is normal in caliber and enhancement. 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 Question of thickening of the distal esophagus. Small hiatal hernia. Bones and chest wall: No suspicious bony lesions. Ribs and thoracic spine appear intact throughout. Thyroid gland is unremarkable. No axillary or supraclavicular adenopathy. Abdomen: Visualized upper abdominal solid organs appear normal in the early arterial phase of enhancement. IMPRESSION: 1. No pulmonary embolism. 2. Bilateral peripheral and predominantly dependent reticular thickening. Suspect mild pulmonary edema and atelectasis. Fibrosis could have this appearance. 3. No pleural effusion. 4. No consolidative opacity to suggest pneumonia. 5. A 5 mm nodular opacity in the right lower lobe. This could represent an intrapulmonary lymph node. -Consider follow-up chest CT in 12 months. Dictated by: Pedro Scanlon M.D. on 12/04/2019 at 13:41 Approved by: Pedro Scanlon M.D. on 12/04/2019 at 13:51
[2019-12-04 13:39] LABS: NT-proBNP (BNP-Adult 18+) 108 pg/mL (<450)
[2019-12-04] MEDS: PANTOPRAZOLE 40 MG VIAL IV (13:43)
[2019-12-04] MEDS: SODIUM CHLORIDE 0.9% 1,000 ML 150 ML IV (13:46)
[2019-12-04 14:17] LABS: Bacteria Urine None Seen; WBC Urine None Seen (0-5/HPF)
[2019-12-04 14:20] LABS: Culture Indicated Urine Cult Not Indicated; RBC Urine 0-1/HPF (0-5/HPF)
[2019-12-04] MEDS: MAG HYDROX/ALUMINUM/SIMETH SUS 20 ML, LIDOCAINE VISCOUS 2% 15 ML PO (14:32)
[2019-12-04 15:12] LABS: Troponin I < 0.012 ng/mL (0.01-0.034)
== END 2019-12-04 15:49 | disposition home or self-care (01) ==
PROVIDERS: Emergency Provider Nurse Practitioner; PCP Internal Medicine
DX: K21.9 Gastro-esophageal reflux disease without esophagitis (principal); R06.02 Shortness of breath; R00.0 Tachycardia, unspecified; I10 Essential (primary) hypertension
CPT/HCPCS: 36415; 71045; 71275; 76705; 80053; 81003; 81015; 82550; 83690; 83880; 84484; 85025; 85379; 85610; 85730; 93005; 96361; 96374; 99284; C9113; Q9967

== ENCOUNTER → 2020-05-13 12:51 | Outpatient (CLI) | payer MEDICARE, OTHER, SELFPAY ==
[2020-05-13] MEDS: COVID-19 VACC, Ad26(JANSSEN)/PF 0.5 ML IM (13:09)
== END ==
PROVIDERS: PCP Internal Medicine; Visit Provider Internal Medicine
DX: Z23 Encounter for immunization (principal)
CPT/HCPCS: 0031A; 91303

== ENCOUNTER → 2021-08-15 08:20 | Outpatient (CLI) | payer MEDICARE, OTHER, SELFPAY ==
--- NOTE | 2021-08-15 | DI.MG.S_ITS ---
BILATERAL DIGITAL SCREENING MAMMOGRAM 3D/2D WITH CAD: 08/15/2021 CLINICAL: Routine screening. Comparison is made to exams dated: 01/22/2017 mammogram, 01/01/2016 mammogram, and 06/07/2014 mammogram - [facility]. The tissue of both breasts is heterogeneously dense. This may lower the sensitivity of mammography. Current study was also evaluated with a Computer Aided Detection (CAD) system. There is a new 7 mm oval equal density asymmetry with a circumscribed margin in the right breast anterior depth lateral region seen on the craniocaudal view only. No other significant masses, calcifications, or other findings are seen in either breast. IMPRESSION: INCOMPLETE: NEEDS ADDITIONAL IMAGING EVALUATION The new 7 mm oval equal density asymmetry in the right breast is indeterminate. Additional views with possible ultrasound are recommended. This exam was interpreted at Station ID: [id number]. NOTE: For mammograms, a report in lay terms will be sent to the patient. Approximately 15% of breast malignancies will not be visualized mammographically. In the management of a palpable breast mass, a negative mammogram must not discourage biopsy of a clinically suspicious lesion. Electronically Signed By: Francheska zafar/james:08/15/2021 12:20:16 letter sent: Additional Imaging Needed ACR BI-RADS Category 0: Incomplete [id number]
== END ==
PROVIDERS: PCP Internal Medicine; Referring Provider Internal Medicine; Visit Provider Internal Medicine
DX: Z12.31 Encounter for screening mammogram for malignant neoplasm of breast (principal)
CPT/HCPCS: 77063; 77067

== ENCOUNTER → 2021-09-15 11:56 | Outpatient (CLI) | payer MEDICARE, OTHER, SELFPAY ==
--- NOTE | 2021-09-15 11:58 | DI.MG.S_ITS ---
UNILATERAL RIGHT DIGITAL DIAGNOSTIC MAMMOGRAM 3D/2D WITH ADDITIONAL VIEWS: 09/15/2021 CLINICAL: Additional evaluation requested from prior study. Comparison is made to exams dated: 08/15/2021 mammogram, 01/22/2017 mammogram, and 01/01/2016 mammogram - [facility]. The tissue of right breast is heterogeneously dense. This may lower the sensitivity of mammography. There is a new 0.7 cm focal asymmetry in the right breast at 9 o'clock anterior depth. This is seen in additional views. No other significant masses or calcifications are seen in the breast. IMPRESSION: INCOMPLETE: NEEDS ADDITIONAL IMAGING EVALUATION The new 0.7 cm focal asymmetry in the right breast is indeterminate. A targeted ultrasound is recommended and will immediately follow. Based on the Tyrer Cuzick model (a risk assessment model) the patient's lifetime risk is % and her 10 year risk is %. According to the ACR, ACS, and NCCN guidelines, an annual breast MRI exam along with mammogram is recommended if the patient's lifetime risk is 20% or greater. This exam was interpreted at Station ID: [id number]. NOTE: For mammograms, a report in lay terms will be sent to the patient. Approximately 15% of breast malignancies will not be visualized mammographically. In the management of a palpable breast mass, a negative mammogram must not discourage biopsy of a clinically suspicious lesion. Electronically Signed By: Pedro Scanlon M.D. slc/:09/15/2021 13:14:48 ACR BI-RADS Category 0: Incomplete 3340F
--- NOTE | 2021-09-15 11:59 | DI.US.S_ITS ---
LIMITED ULTRASOUND OF RIGHT BREAST AND AXILLA: 09/15/2021 CLINICAL: Patient returns for additional imaging over a suspected mass in the right breast. Comparison is made to exams dated: 09/15/2021 mammogram, 08/15/2021 mammogram, and 01/22/2017 mammogram - [facility]. Color flow and real-time ultrasound of the right breast 9 o'clock, and axilla regions were performed. Fierro scale images of the real-time examination were reviewed. There is a 1 cm x 0.7 cm x 0.6 cm oval mass with a microlobulated margin in the right breast at 10 o'clock anterior depth 1 cm from the nipple. This oval mass is hypoechoic. This correlates with mammography findings. Color flow imaging demonstrates that there is vascularity present. No significant abnormalities were seen sonographically in the right axilla. IMPRESSION: SUSPICIOUS OF MALIGNANCY 1) The 1 cm x 0.7 cm x 0.6 cm oval mass in the right breast is at a moderate suspicion for malignancy. -Ultrasound guided biopsy is recommended. 2) No enlarged right axillary lymph nodes. Exam findings were discussed with the patient by Dr. Greg Onofre. This exam was interpreted at Station ID: [id number]. Electronically Signed By: Pedro Scanlon M.D. slc/:09/15/2021 13:18:16 letter sent: Biopsy Required Ultrasound BI-RADS: 4b Moderate suspicion of malignancy
== END ==
PROVIDERS: PCP Internal Medicine; Referring Provider Internal Medicine; Visit Provider Internal Medicine
DX: R92.8 Other abnormal and inconclusive findings on diagnostic imaging of breast (principal); N63.11 Unspecified lump in the right breast, upper outer quadrant
CPT/HCPCS: 76642; 77065; G0279

== ENCOUNTER → 2021-09-30 14:08 | Outpatient (CLI) | payer MEDICARE, OTHER, SELFPAY ==
--- NOTE | 2021-09-30 | PATH_ITS ---
[facility] Accession Number: [id number] No. of containers..01 Tissue . 01 Material submitted: . breast - RIGHT BREAST MASS 9:00 1 CMFN . 01 Clinical history: . ABNORMAL RIGHT BREAST MAMMOGRAM . 01 Diagnosis: Right Breast Mass 9 o'clock, 1 cm from Nipple: Features consistent with encapsulated papillary carcinoma, non-invasive. Please see comment. Please see Cancer Case Summary. . CASE SUMMARY: Specimen Procedure: Needle biopsy. Specimen laterality: Right. Tumor Tumor site: Between the upper and lower outer quadrants at 9 o'clock. Specified clock position: 9 o'clock. Specified distance from nipple in centimeters: 1 cm from nipple. Histologic type: Favor encapsulated papillary carcinoma, non-invasive. Please see comment. Nuclear grade: Grade 2 of 3. Necrosis: Not identified. Microcalcifications: Not identified. Special studies: Please breast biomarker studies under microscopic description. V 10/03/2021 1625 Local . 01 Comment: The histologic features suggest a papillary neoplasm with a portion of adjacent fibrous capsule. No invasive tumor is identified, however, complete excision of this lesion is necessary to exclude the possibility of unsampled invasive tumor. . As part of ongoing quality assurance clerk, this case is also reviewed by Dr. Sofi Conde, who concurs with the given interpretation. . 01 Electronically signed: . Orly Esteves MD, Pathologist NPI- [id number] . 01 Gross description: . Received in formalin, labeled with the patient's name and breast biopsy, and consists of multiple yellow to munguia soft tissue fragments ranging from 0.2 cm to 1.2 cm in greatest dimension. The specimen is inked blue and submitted entirely in cassette A1. The specimen was removed on at approximately 1500, cold ischemic time cannot be calculated. Total fixation time is approximately 28 hours. ([id number]) /[facility] 10/02/2021 0222 Local . 01 Microscopic: . BREAST BIOMARKER: Estrogen Receptor (ER) Status: Positive. Average intensity of staining: Strongly expressed in approximately 80% of tumor nuclei. Primary antibody: SP1 . An immunohistochemistry panel is performed to further evaluate the cells of interest. The control stains show appropriate reactivity. . RESULTS: P63: Absent at region of interest. Myosin: Absent in region of interest. E-cadherin: Positive, consistent with ductal differentiation. CK5/6: Absent in region of interest. . The absence of p63 and myosin at the focus of interest supports an interpretation of encapsulated papillary carcinoma. The e-cadherin immunopositivity supports ductal differentiation. The absence of CK5/6 mitigates against the presence of usual ductal hyperplasia at this focus. . . * This test was developed and its performance characteristics determined by [employer]. It has not been cleared or approved by the U.S. Food and Drug Administration. The FDA has determined that such clearance or approval is not necessary. This test is used for clinical purposes. It should not be regarded as investigational or for research. . 01 Pathologist provided ICD-10: D05.10 . 01 CPT . 043231, X02189, 561076 Specimen Comment: A courtesy copy of this report has been sent to [phone] Performed at: 01 [facility] [address] [place] [address], [place], [place] [id number] MD Ankit Lopes MD Phone: [phone]
--- NOTE | 2021-09-30 | DI.MG.S_ITS ---
UNILATERAL RIGHT DIGITAL DIAGNOSTIC MAMMOGRAM 3D/2D POST-EXCISIONAL BIOPSY: 09/30/2021 CLINICAL: Post clip. Comparison is made to exams dated: 09/15/2021 ultrasound, 09/15/2021 mammogram, and 08/15/2021 mammogram - [facility]. The tissue of right breast is heterogeneously dense. This may lower the sensitivity of mammography. There is a marker clip in the appropriate position in the right breast at 10 o'clock anterior depth. This marker clip placement is at the biopsy site. IMPRESSION: POST PROCEDURE MAMMOGRAM FOR MARKER PLACEMENT There was a successful marker clip placement in the right breast anterior depth. Based on the Tyrer Cuzick model (a risk assessment model) the patient's lifetime risk is % and her 10 year risk is %. According to the ACR, ACS, and NCCN guidelines, an annual breast MRI exam along with mammogram is recommended if the patient's lifetime risk is 20% or greater. This exam was interpreted at Station ID: [id number]. NOTE: For mammograms, a report in lay terms will be sent to the patient. Approximately 15% of breast malignancies will not be visualized mammographically. In the management of a palpable breast mass, a negative mammogram must not discourage biopsy of a clinically suspicious lesion. Electronically Signed By: Elena johnson/james:09/30/2021 15:31:47 ACR BI-RADS Category Post-procedure mammogram for marker placement
--- NOTE | 2021-09-30 | DI.US.S_ITS ---
ULTRASOUND GUIDED BIOPSY RIGHT BREAST USING VACUUM DEVICE WITH MARKING DEVICE INSERTED AND POST DIGITAL MAMMOGRAPHIC IMAGIN09/30/2021 CLINICAL: Right breast mass. PATIENT CONSENT: Risks (minor bleeding, infection, vasovagal reaction and repeat procedure), benefits and alternatives were explained to the patient and written informed consent was obtained. Correlation is made to exams dated: 09/15/2021 ultrasound, 09/15/2021 mammogram, 08/15/2021 mammogram, 01/22/2017 mammogram, 01/01/2016 mammogram, and 06/07/2014 mammogram - [facility]. An ultrasound guided biopsy using real-time ultrasound was performed for the 1.1 cm x 0.8 cm x 0.7 cm microlobulated oval mass located in the right breast at 9 o'clock anterior depth. The skin was prepped in the usual manner. Local anesthetic was administered to the access site. A skin roney was made in the breast. The abnormality was approached from the lateral aspect. A 13 gauge biopsy needle was placed adjacent to the abnormality under ultrasound guidance. Once the needle was documented to be in the correct location, three specimens were obtained using the Mammotome biopsy system. A [employer] Secure biopsy clip was inserted into the biopsy cavity. A skin closure strip was applied to the access site. Post procedure digital mammographic imaging demonstrates the location device at the targeted area. The specimens were sent to the laboratory for pathological analysis. IMPRESSION: ULTRASOUND GUIDED BIOPSY MALIGNANT Ultrasound guided biopsy of the 1.1 cm x 0.8 cm x 0.7 cm mass in the right breast at 9 o'clock anterior depth was successful. Pathology indicates malignant papillary carcinoma. Pathology results are concordant with imaging findings. A surgical/oncologic consultation is recommended. This exam was interpreted at Station ID: [id number]. Elena Scanlon M.D. [facility],slc/:10/06/2021 11:36:25
== END ==
PROVIDERS: PCP Internal Medicine; Referring Provider Internal Medicine; Visit Provider Internal Medicine
DX: D05.11 Intraductal carcinoma in situ of right breast (principal); Z17.0 Estrogen receptor positive status [ER+]
CPT/HCPCS: 19083; 77065

== ENCOUNTER → 2021-10-23 09:05 | Outpatient (CLI) | payer MEDICARE, OTHER, SELFPAY ==
[2021-10-23 09:32] LABS: COVID19 -Nasal RAPID Negative (Negative)
== END ==
PROVIDERS: PCP Internal Medicine; Visit Provider Surgery
DX: Z20.822 Contact with and (suspected) exposure to COVID-19 (principal); Z01.812 Encounter for preprocedural laboratory examination
CPT/HCPCS: 87635; C9803

== ENCOUNTER 2021-10-24 10:57 | Day surgery (SDC) | payer MEDICARE, OTHER, SELFPAY ==
[2021-10-20 12:33] VITALS: BMI 31.6
--- NOTE | 2021-10-24 | DI.MG.S_ITS ---
SPECIMEN RIGHT BREAST: 10/24/2021 CLINICAL: Right specimen. Correlation is made to exams dated: 09/30/2021 ultrasound biopsy, 09/30/2021 mammogram, and 09/15/2021 ultrasound [facility]. A partial mastectomy specimen was imaged for the previous biopsy site located in the right breast at 9 o'clock anterior depth. The alphanumeric grid is not included in its entirety on the image. The biopsy clip is located at H-13. IMPRESSION: SPECIMEN The imaged specimen includes a biopsy clip at H-13. This exam was interpreted at Station ID: [id number]. Francheska zafar/:10/29/2021 17:04:56
--- NOTE | 2021-10-24 | PATH_ITS ---
[facility] Accession Number: [id number] . 01 Material submitted: . breast - RIGHT BREAST MASS . 01 Diagnosis: Right Breast, Mass, Excision: Focal residual neoplasm consistent with encapsulated papillary carcinoma without invasive carcinoma. Please see summary data below. . Procedure: Excision. Specimen laterality: Right. Tumor site: 7 o'clock, per report. Histologic type: Encapsulated papillary carcinoma without invasive carcinoma. Size (extent) of DCIS: 5 mm as measured on slide of prior case ([id number]). Nuclear grade: Grade 2. Necrosis: Not identified. Microcalcifications: Present in nonneoplastic tissue. Margin status: All margins negative for DCIS. Distance from DCIS to closest margin: Within 0.5 mm of posterior margin. and 4 mm from anterior margin. Regional lymph node status: Not applicable (no regional lymph nodes submitted or found). Distant metastasis: Not applicable. . Pathologic stage classification (AJCC 8th Edition): pT category: pTis. pN category: pN not assigned. . Additional findings: Biopsy site changes are present. . Breast biomarker testing performed on previous biopsy: Estrogen receptor status: Approximately 80% (case [id number]). [facility] 10/29/2021 1301 Local . 01 Comment: As part of routine quality control lab technician, Dr. Esteves also reviewed selected slides from this case and agrees with the interpretation. . 01 Electronically signed: . Vesta Deal MD, Pathologist NPI- [id number] . 01 Gross description: . Received in formalin, labeled with the patient's name and right breast mass, and consists of an oriented fragment of yellow-pink fibroadipose tissue with a short suture designating superior and a long suture designating lateral per the requisition. The specimen measures 5.0 cm SI, 5.9 cm ML, 1.1 cm AP. No skin or localization wire are identified. The specimen is inked as follows: Anterior yellow, posterior black, medial, blue, lateral green, superior orange, inferior red. The specimen is serially sectioned from medial to lateral into thirteen 3 mm slices and reveals a diffusely white, firm cut surface with an area of hemorrhage located within slices 3-5. No discrete lesion is identified. The munguia, firm area grossly approaches all margins. A small amount of yellow, soft adipose tissue occupies approximately 10% of the cut surface. A cylindrical biopsy clip is identified within slice 4, and the biopsy measures 0.1 cm from the posterior margin, 0.6 cm from the anterior margin, and greater than 0.5 cm from all remaining margins. The specimen is submitted entirely as follows: A1-A2: Entire slice 1 medial margin perpendicular. A3: Entire slice 2. A4: Entire slice 3. A5-A6: Entire slice 4. A7-A8: Entire slice 5. A9-A10: Entire slice 6. A11-A12: Entire slice 7. A13-A14: Entire slice 8. A15-A16: Entire slice 9. A17-A18: Entire slice 10. A19-A20: Entire slice 11. A21-A22: Entire slice 12. A23-A25: Entire slice 13 lateral margin perpendicular. . The specimen was removed on 10/24/21, no time provided, cold ischemic time cannot be calculated. Total fixation time is less than 72 hours. ([id number]) /[facility] 10/25/2021 [facility] Local . 01 Microscopic: . Immunohistochemical stains were performed on block A3 to characterize cells of interest. All control stains showed appropriate reactivity. . RESULTS: P63: Absent in area of interest. Myosin: Absent in area of interest. CK5/6: Absent in area of interest. . INTERPRETATION: The absence of p63 and myosin at the area of interest is similar to the results in the prior biopsy and supports an interpretation of an encapsulated papillary carcinoma. . * This test was developed and its performance characteristics determined by [employer]. It has not been cleared or approved by the U.S. Food and Drug Administration. The FDA has determined that such clearance or approval is not necessary. This test is used for clinical purposes. It should not be regarded as investigational or for research. . 01 Pathologist provided ICD-10: D05.10 . 01 CPT . 225201, M61190, [id number] Performed at: 01 [facility] [address] [place] [id number] MD Ankit Lopes MD Phone: [phone]
[2021-10-24 11:26] VITALS: BP 169/78; PULSE 92; RESP 16; TEMP 37.5; O2SAT 96; BMI 30.7
[2021-10-24] MEDS: LACTATED RINGERS 1,000 ML 100 ML IV ×2 (11:49→14:04)
--- NOTE | 2021-10-24 12:39 | PM.PREOP ---
Pre-operative Note Interval Note History & Physical reviewed/Exam performed by Physician: Yes Changes to H&P: No
[2021-10-24] MEDS: CEFAZOLIN 2 GM/100 ML PREMIX 100 ML IV (13:17)
--- NOTE | 2021-10-24 13:28 | SUR.OPER ---
Supine on padded OR bed, head on pillow, arms secured on padded arm boards at <90 degrees abduction, legs uncrossed, safety belt at thigh, tape over blanket over lower legs. Gel pad placed under bilateral heels, pillow under knees.
--- NOTE | 2021-10-24 13:29 | SUR.OPER ---
Patient voided in pre-op area prior to being brought to OR, patients glasses placed into her belongings bag in pre-op area.
[2021-10-24] MEDS: BUPIVACAINE 0.5% (PF) VIAL 30 ML INJ (13:35)
--- NOTE | 2021-10-24 14:05 | PM.OP.1 ---
Operative Date/Time/Diagnoses Date of procedure: 10/24/21 Time of procedure: 14:05 Pre-op diagnosis: right breast mass Post-op diagnosis: same Procedure & Clinicians Procedure: right lumpectomy Same procedure as scheduled: Yes Indications: 86-year-old woman with a palpable 1 cm right breast mass. Core needle biopsy demonstrates papillary carcinoma non invasive. She presents today for a elective right lumpectomy. Surgeon: Jr Lyn Click Yes if Unassisted: Yes Anesthesia Type: General Operative Notes Findings: firm 1 cm mass 7 o'clock anterior depth.. specimen is marked short stitch superior long stitch lateral Specimen(s): other ( right breast mass. Short stitch superior long stitch lateral) Estimated Blood Loss (mL): 10 Procedure in detail: The patient underwent needle localized prior to the operation. They were brought to the operating room and placed supine on the table. Bilateral lower extremity compression devices were applied. They were intubated with an LMA. they were prepped and draped in sterile fashion. Time-out was performed. 1 cm mass is palpable anterior deaf 7 o'clock position on the right breast A curvilinear incision on the lateral aspect of the right nipple complex. The subcutaneous tissues were divided. The mass was palpable The mass was excised circumferentially. Specimen was marked short stitch superior long stitch lateral. Imaging demonstrated that the specimen contained the clip. Subcutaneous tissues were reapproximated with 3 0 Vicryl sutures skin closed with Monocryl followed by application of Dermabond. The counts were correct. They emerged from anesthesia and were transfered to recovery in stable condition. 30 ml of Lidocaine where injected into the subcutaneous space Complications: none Post-operative Condition: stable Disposition: same day surgery
[2021-10-24 14:11] VITALS: BP 120/60; PULSE 87; RESP 12; TEMP 36.9; O2SAT 97
[2021-10-24 14:12] VITALS: BP 122/61; PULSE 81; RESP 14; O2SAT 97
[2021-10-24 14:17] VITALS: BP 131/59; PULSE 80; RESP 11; O2SAT 95
[2021-10-24 14:22] VITALS: BP 126/59; PULSE 84; RESP 13; O2SAT 94
[2021-10-24] MEDS: ONDANSETRON 4 MG/2 ML INJ IV (14:28)
[2021-10-24 14:29] VITALS: BP 138/64; PULSE 81; RESP 17; TEMP 36.1; O2SAT 97
[2021-10-24] MEDS: OXYCODONE/ACETAMINOPHEN 5/325 TABLET 1 TAB PO (14:33)
== END 2021-10-24 14:51 | disposition home or self-care (01) ==
PROVIDERS: PCP Internal Medicine; Referring Provider Physician Assistant Medical; Visit Provider Surgery
PROC: (CPT 19301; principal; 2021-10-24 12:00)
DX: D05.11 Intraductal carcinoma in situ of right breast (principal); I10 Essential (primary) hypertension
CPT/HCPCS: 19301; 76098; 82962; J0690; J2405; J3010

== ENCOUNTER → 2021-11-19 09:52 | Outpatient (CLI) | payer MEDICARE, OTHER, SELFPAY ==
[2021-11-19 12:09] LABS: COVID19 -Nasal RAPID Negative (Negative)
== END ==
PROVIDERS: PCP Internal Medicine; Visit Provider Surgery
DX: Z01.812 Encounter for preprocedural laboratory examination (principal); Z20.822 Contact with and (suspected) exposure to COVID-19
CPT/HCPCS: 87635; C9803

== ENCOUNTER 2021-11-20 06:40 | Day surgery (SDC) | payer MEDICARE, OTHER, SELFPAY ==
[2021-11-18 14:12] VITALS: BMI 31.6
[2021-11-20] VITALS (7 sets, daily range): BP systolic 105–156; BP diastolic 57–82; PULSE 95–102; RESP 16–22; TEMP 36.2–36.8; O2SAT 92–100; BMI 31.6
--- NOTE | 2021-11-20 | PATH_ITS ---
[facility] Accession Number: [id number] . 01 Material submitted: . breast - RT BREAST - SUTURE LONG LATERAL, SHORT SUPERIOR . 01 Diagnosis: Right Breast, Simple Mastectomy: Negative for neoplasia and malignancy. -Changes of previous surgical site; negative for residual encapsulated papillary carcinoma. -Fibrocystic change to include duct dilatation, apocrine metaplasia, and columnar cell change/hyperplasia. -Rare focus of atypical lobular hyperplasia. -Benign skin without significant pathologic abnormality. V 11/28/2021 1706 Local . 01 Comment: Patient Care slides of this case are also reviewed by Dr. Kathie Alfredo, who concurs with the given interpretation. . 01 Electronically signed: . Sofi Conde MD, Pathologist NPI- [id number] . 01 Gross description: . Received: In formalin, labeled with the patient's name and right breast suture long lateral, short superior. Specimen: Right simple mastectomy. Weight: 742 grams. Measurement: 13.3 cm anterior to posterior; 16.6 cm medial to lateral; and 11.9 cm superior to inferior. Skin ellipse: Present, pink-munguia, elliptical portion of skin measuring 15.2 x 12.5 cm. Nipple/areola: 1.4 x 1.4 cm diameter, slightly everted nipple within a 5.1 x 4.4 cm diameter areola. There is a 4.2 cm curvilinear scar located 1.1 cm lateral to the nipple and 3.1 cm from the nearest superior skin margin. Axillary tail: Possible attached and non-oriented, measuring 7.5 x 4.6 x 2.4 cm. Margins: The skin ellipse is oriented by the surgeon with a short superior suture, long lateral suture, and the posterior surface is covered by fascia and is inked black. The anterior soft tissue margins are unremarkable, adjacent to the skin, are inked blue for anterior-superior and green for anterior-inferior. An additional extension of breast tissue is noted on the superior edge of the specimen and measures 8.3 x 5.4 x 2.6 cm. The posterior surface of this extension is covered by fascia and is inked black, and the anterior surface is unremarkable and is inked blue along with the rest of the anterior-superior surface. Slices: Serial coronal sections of the specimen are consecutively numbered 1 to 17 from lateral to medial. Lesion: One lesion consistent with previous lumpectomy cavity with surrounding fibrous tissue. Lesion: Description: Previous lumpectomy cavity filled with serosanguineous fluid and white-pink, rubbery fibrous tissue with no biopsy clip identified. Size: Cavity: 5.2 x 2.8 x 2.4 cm, with surrounding fibrous area: 8.8 x 7.3 x 5.7 cm. Slices involved: Cavity: 5-9 with fibrous area: 3-12, central and upper outer quadrant. Distance to margins: Fibrous area: 0.7 cm from the posterior margin, 0.5 cm from the superficial anterior margin, 2.6 cm from the anterior inferior margin, 0.5 cm from the nipple areolar complex. Cavity: 4.5 cm from the posterior margin, 2.4 cm from the anterior-superior margin, 5.8 cm from the anterior-inferior margin, 0.5 cm from the nipple areolar complex. Other: The uninvolved breast parenchyma is yellow to white fibroadipose tissue with fibrous tissue occupying approximately 40% of the cut surface. No additional lesions are identified. No lymph nodes are identified. Patient Care sections are submitted as follows: A1-A2: Entire bisected nipple. A3: Skin with scar. A4: Rep slice 2, 3, lateral to fibrous area. A5: Rep slice 4 to include superior and posterior margins. A6: Slice 5 with beginning of cavity and fibrous area. A7: Rep 16 cavity to nearest skin. A8: Slice 6, cavity to anterior-superior margin. A9: Slice 6, cavity to posterior margin. A10: Slice 7, posterior portion of cavity. A11: Slice 7, posterior margin. A12-A13: Slice 8, posterior cavity. A14-A15: Slice 8, anterior cavity. A16: Slice 8, fibrous area to anterior-superior margin. A17: Slice 9, cavity. A18: Slice 9, fibrous area to posterior and superior margins. A19: Upper outer quadrant. A20: Lower outer quadrant. A21: Lower inner quadrant. A22: Upper inner quadrant. . The specimen was removed on 11/20/2021. Time in formalin not provided. Cold ischemic time cannot be calculated. Total fixation time is less than 72 hours. ([id number]) /MRV 11/21/2021 1546 Local . 01 Pathologist provided ICD-10: D05.11 . 01 CPT . 500379 Performed at: 01 [facility] [address] [place] [address] [address] [facility], [place], [place] [id number] MD Ankit Lopes MD Phone: [phone]
--- NOTE | 2021-11-20 07:31 | SUR.OPER ---
Supine on padded OR bed, head on pillow, arms secured on padded arm boards at <90 degrees abduction, legs uncrossed, safety belt at thigh, tape over blanket over lower legs.
[2021-11-20] MEDS: LACTATED RINGERS 1,000 ML 42 ML IV (07:47)
[2021-11-20] MEDS: ACETAMINOPHEN 325 MG TABLET 650 MG PO (07:47)
--- NOTE | 2021-11-20 07:52 | PM.PREOP ---
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 Site marked with my initials.
[2021-11-20] MEDS: ACETAMINOPHEN IV 1,000 MG/100 ML VIAL 400 MG IV (08:42)
[2021-11-20] MEDS: CEFAZOLIN 2 GM/100 ML PREMIX 100 ML IV (08:50)
[2021-11-20] MEDS: BUPIVACAINE 0.25% (PF) VIAL 30 ML INJ (09:00)
--- NOTE | 2021-11-20 10:26 | P.OP_ITS ---
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 Short stitch superior long stitch lateral) Estimated Blood Loss (mL): 20 Procedure in detail: Patient was brought to the operating room placed supine on the table. Bilateral lower extremity compression devices were applied. She received 2 g of Ancef prior to skin incision. She was intubated with an endotracheal tube. She was then prepped and draped in sterile fashion. Time-out was performed. An elliptical incision around the nipple areola complex was made with the knife. The subcutaneous tissue was divided with electrocautery. Skin flaps were raised to separate the breast tissue from the skin along the subdermal plexus. The dissection was extended superior to the clavicle, medial to the sternum, inferior the the inframamary fold and lateral to the anterior border of the latisimus dorsi. Next the breast tissue was from the underlying pectoralis fascia. The breast was passed off the field marked short stitch superior long stitch lateral. The anterior flap was thick compared to the others and therefore an additional margin, anterior margin was taken stitch frazier the true margin. A 19 Vietnamese Jose drain was placed into the cavity and secured. The wound was copiously irrigated and homeostasis was ensured. The mastectomy was closed with Vicryl for the subcutaneous tissue and the skin was closed with 4 0 Monocryl followed by the application of Dermabond. Patient tolerated procedure well she emerged from anesthesia was extubated and transferred to recovery room in stable condition. Complications: none Post-operative Condition: stable Disposition: same day surgery
--- NOTE | 2021-11-20 11:42 | SUR.PHASEII ---
Pt and daughter given instructions for GABRIEL care and emptying, keeping output log. Pt and daughter verbalized understanding and performed care well. Given supplies as well. Verbalized understanding of all DC instructions.
--- NOTE | 2021-11-20 18:57 | P.HP_ITS ---
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 Operation was unremarkable, blood loss was <50 ml and PACU vitals within normal limits. . Apparently she was at home for several hours feeling well incision was without bruising and minimal drain output. She rather suddenly became lightheaded and had a syncopal episode. She did not fall or strike her head. Brought by EMS, on arrival to the emergency department blood pressure 70/40 low-grade tachycardia. Hct 30 on arrival, lactate 8. She underwent a CT head chest abdomen pelvis which are notable only for hematoma within the right mastectomy wound on my read. Official read is pending. She was taking aspirin 81 mg daily up until the date of surgery. Patient History Medical History Elevated cholesterol Hypertension Lipoma of breast No significant medical problems Surgical History History of lumpectomy of right breast (10/24/21) Family & Social History Social History: household members spouse Tobacco & Substance use: Tobacco type cigarettes Smoking Status Former smoker alcohol intake never alcohol intake frequency 0-2 drinks per day Substance Use Type does not use Meds Home Medications and Allergies Home Medications Medication Instructions Recorded Confirmed Type amlodipine 5 mg tablet 5 mg PO QNOON 12/04/19 11/20/21 History aspirin 81 mg chewable tablet 81 mg PO BEDTIME 12/04/19 11/20/21 History hydrochlorothiazide 25 mg tablet 25 mg PO QNOON 12/04/19 11/20/21 History losartan 100 mg tablet 100 mg PO QNOON 12/04/19 11/20/21 History lovastatin 40 mg tablet 40 mg PO BEDTIME 12/04/19 11/20/21 History acetaminophen 325 mg capsule 650 mg PO QID PRN pain #60 caps 10/24/21 11/20/21 Rx (Tylenol) ibuprofen 200 mg tablet 400 mg PO Q6H #60 tabs 10/24/21 11/18/21 Rx oxycodone 5 mg tablet 5 mg PO Q6H PRN pain #20 tabs 10/24/21 11/20/21 Rx docusate sodium 100 mg capsule 100 mg PO BID #30 caps 11/20/21 Rx (Colace) doxycycline monohydrate 100 mg 100 mg PO BID #14 caps 11/20/21 Rx capsule Allergies Allergy/AdvReac Type Severity Reaction Status Date / Time No Known Drug Allergies Allergy Verified 11/07/21 09:26 Exam Vital Signs (past 8 hours): - 11/20/21 11:01 Temperature 97.2 F L Pulse Rate 96 H Respiratory Rate 16 Blood Pressure 129/65 Pulse Oximetry 98 Oxygen Delivery Method Room Air Oxygen Delivery Method Room Air Oxygen Flow Rate 4 Narrative Exam Narrative: General elderly woman disoriented confused Chest tense right chest wall hematoma drain no active drainage Abdomen for compressible Extremities cool Assessment & Plan Assessment and plan (1) Postoperative hemorrhage: Status: Acute Assessment & Plan narrative: 86-year-old woman with hemorrhagic shock status post 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 -return to OR now right chest wall hematoma evacuation and control of bleeding -this plan was discussed with the patient's and daughter who provided verbal consent to proceed. -ICU admission postop -2 units packed red blood cells now -Alonzo catheter for monitoring Time Spent With Patient Critical Care time: I spent a total of [] minutes of critical care time on this patient's care today; this time is exclusive of procedural time.
[2021-11-21 00:55] LABS: Add Manual Diff / Slide Review NO; Basophils Absolute Auto 0 /uL (0-100); Basophils Percent Auto 0.2 % (0-2); Eosinophils Absolute Auto 0 /uL (0-450); Hematocrit 31.4 % (36-46); Hemoglobin 10.8 g/dL (12.0-16.0); Lymphocytes Absolute Auto 1500 /uL (1100-4500); Lymphocytes Percent Auto 7.5 % (25-40); Mean Corpuscular HGB Conc 34.5 % (30-36); Mean Corpuscular Hemoglobin 30.7 PG (26-34); Monocytes Absolute Auto 2100 /uL (0-900); Monocytes Percent Auto 10.1 % (3-14); Neutrophils Absolute Auto 16800 /uL (1500-7000); Neutrophils Percent Auto 82.2 % (50-75); Platelet Count 168 X10^3/uL (150-400); Red Blood Cell Count 3.52 X10^6/uL (4.0-5.2); Red Cell Distribution Width 16.2 % (11.6-14.8); White Blood Cell Count 20.4 X10^3/uL (4.5-11.0)
[2021-11-22 06:35] LABS: Add Manual Diff / Slide Review NO; Basophils Absolute Auto 0 /uL (0-100); Basophils Percent Auto 0.3 % (0-2); Eosinophils Absolute Auto 100 /uL (0-450); Eosinophils Percent Auto 1.1 % (2-4); Hematocrit 21.7 % (36-46); Hemoglobin 7.7 g/dL (12.0-16.0); Lymphocytes Absolute Auto 1900 /uL (1100-4500); Lymphocytes Percent Auto 16.5 % (25-40); Mean Corpuscular HGB Conc 35.3 % (30-36); Mean Corpuscular Hemoglobin 31.3 PG (26-34); Mean Corpuscular Volume 88.6 fL (80-100); Monocytes Absolute Auto 1000 /uL (0-900); Monocytes Percent Auto 8.8 % (3-14); Neutrophils Absolute Auto 8300 /uL (1500-7000); Neutrophils Percent Auto 73.3 % (50-75); Platelet Count 158 X10^3/uL (150-400); Red Blood Cell Count 2.45 X10^6/uL (4.0-5.2); White Blood Cell Count 11.4 X10^3/uL (4.5-11.0)
== END 2021-11-20 11:44 | disposition home or self-care (01) ==
PROVIDERS: PCP Internal Medicine; Referring Provider Surgery; Visit Provider Surgery
PROC: 0HTT0ZZ Resection of Right Breast, Open Approach (ICD-10-PCS; CPT 19303; principal; 2021-11-20 07:45)
DX: N60.91 Unspecified benign mammary dysplasia of right breast (principal); I10 Essential (primary) hypertension
CPT/HCPCS: 19303; 93010; J0131; J0690; J1100; J2405; J2704; J3010

== ENCOUNTER 2021-11-20 17:37 | Inpatient (IN) | payer MEDICARE, OTHER, SELFPAY ==
[2021-11-20] VITALS (72 sets, daily range): BP systolic 65–146; BP diastolic 37–105; PULSE 83–113; RESP 15–34; TEMP 34.8–36.3; O2SAT 88–99; BMI 32.2
--- NOTE | 2021-11-20 | DI.RAD.S_ITS ---
PROCEDURE: XR CHEST FOR PICC 1V INDICATIONS: MIDLINE TECHNIQUE: One view of the chest was acquired. COMPARISON: [facility], CR, XR CHEST 1V, 11/20/2021, 17:49. FINDINGS: Surgical changes and devices: There is a new left internal jugular catheter with the tip extending to the right atrium approximately 4 cm deep to the cavoatrial junction. Lungs and pleura: There is bilateral pulmonary edema. Medial bibasilar opacities are also demonstrated consistent with atelectasis or consolidation. No pleural effusions or pneumothorax. Mediastinum: Mediastinal contours appear unchanged. Heart size is normal. Bones and chest wall: No suspicious bony lesions. Overlying soft tissues appear unremarkable. IMPRESSION: 1. No evidence of pneumothorax. 2. New internal jugular catheter extends into the right atrium. Recommend withdrawal by approximately 4 cm. Dictated by: Ankit Nettles M.D. on 11/20/2021 at 20:51 Approved by: Ankit Nettles M.D. on 11/20/2021 at 20:52
--- NOTE | 2021-11-20 17:50 | DI.RAD.S_ITS ---
PROCEDURE: XR CHEST 1V INDICATIONS: chest pain TECHNIQUE: One view of the chest was acquired. COMPARISON: [facility], CR, XR CHEST 1V, 12/04/2019, 12:34. [facility], CR, CHEST 1 VIEW, 08/25/2006, 5:27. [facility], CT, CT CHEST ABD PEL W CON, 11/20/2021, 18:10. FINDINGS: Surgical changes and devices: Right chest wall soft tissue drain Lungs and pleura: Lung volumes are low. Bilateral interstitial opacities are present. No pleural effusion or pneumothorax. Mediastinum: Cardiac silhouette is enlarged. Bones and chest wall: Right chest wall soft tissue gas better evaluated on same-day CT. IMPRESSION: Findings consistent with mild fluid overload/CHF. Dictated by: Greg Narvaez M.D. on 11/20/2021 at 18:22 Approved by: Greg Narvaez M.D. on 11/20/2021 at 18:24
[2021-11-20] MEDS: ONDANSETRON 4 MG/2 ML INJ IV (17:53)
--- NOTE | 2021-11-20 17:53 | DI.CT.S_ITS ---
PROCEDURE: CT HEAD/BRAIN WO CON INDICATIONS: syncope TECHNIQUE: Noncontrast 4.5 mm thick angled axial sections acquired from the foramen magnum to the vertex, with coronal and sagittal reformats. For radiation dose reduction, the following was used: automated exposure control, adjustment of mA and/or kV according to patient size. COMPARISON: None. FINDINGS: Image quality: Excellent. CSF spaces: Basal cisterns are patent. No extra-axial fluid collections. Ventricles are normal in size and shape. Brain: No midline shift. No intracranial masses or hemorrhage. Fierro-white matter interface is normal. Moderate cerebral and cerebellar volume loss with multifocal white matter chronic ischemic change noted. Atherosclerotic calcification noted associated with cavernous segments of both internal carotid arteries. Skull and face: Calvarium and visualized facial bones are intact, without suspicious lesions. Bilateral intraocular lens replacements noted. Sinuses: Visualized sinuses and mastoids are clear. IMPRESSION: Atrophy and chronic ischemic change without intracranial hemorrhage or mass effect. Approved by: Wilman Yan M.D. on 11/20/2021 at 18:20
--- NOTE | 2021-11-20 17:53 | DI.CT.S_ITS ---
PROCEDURE: CT CHEST ABD PEL W CON INDICATIONS: hypotensive s/p mastectomy TECHNIQUE: After the administration of intravenous contrast, 5 mm thick sections acquired from the lung apices to the symphysis. 2.5 mm thick coronal and sagittal reformats were acquired. Additional 7 mm thick coronal maximum intensity projection (MIP) reformats acquired through the lungs. Optional 10-minute delayed imaging may be performed from the kidneys to the bladder. For radiation dose reduction, the following was used: automated exposure control, adjustment of mA and/or kV according to patient size. COMPARISON: None. FINDINGS: Image quality: Excellent. CHEST: Lungs: No pulmonary contusions or lacerations. No acute airspace opacities. Chronic appearing interstitial opacities are present bilaterally. No pneumothorax or hemothorax. Central and peripheral airways appear patent and normal in caliber. Mediastinum: No mediastinal hematomas. Heart size is normal. No pericardial effusion. Thoracic aorta and pulmonary arteries demonstrate normal size and enhancement. No mediastinal or hilar adenopathy. Esophagus is normal in caliber. No hiatal hernia. Chest wall: Large heterogeneous collection within the soft tissues of the anterior right chest wall containing gas and material of varying densities, some more hypodense components, some more hyperdense components, could reflect blood products. High-density material at the inferior aspect of the collection (2/53) could represent contrast extravasation/active hemorrhage, evaluation limited without delayed images. A soft tissue drain is present in this area. ABDOMEN: Solid organs: Liver is normal in size and enhancement, without lacerations. Gallbladder is unremarkable. Biliary system is non-dilated. Pancreas enhances normally, without transection. Spleen is normal in size and enhancement, without lacerations. No adrenal hematomas. Both kidneys enhance normally, without hydronephrosis or lacerations. Left kidney appears mildly atrophic. Cortical cysts are present without definite suspicious features visualized. Peritoneum and bowel: No free fluid or air. Unenhanced bowel loops demonstrate normal wall thickness and caliber. Nodes and vessels: No retroperitoneal or mesenteric adenopathy. Aorta and inferior vena cava are normal in size and enhancement. Miscellaneous: No ventral hernias. PELVIS: Genitourinary: Bladder wall thickness is normal. Miscellaneous: No inguinal hernias or adenopathy. Bones: Pelvic ring and hip joints appear intact. No vertebral compression fractures. IMPRESSION: Findings suspicious for active hemorrhage at the right inferior chest wall/mastectomy site. Results discussed with Dr. Gautam by Dr. Narvaez at 1919 hours on 11/20/2021. Dictated by: Greg Narvaez M.D. on 11/20/2021 at 19:09 Approved by: Greg Narvaez M.D. on 11/20/2021 at 19:25
--- NOTE | 2021-11-20 17:53 | ED.SYNCOPE ---
HPI - Syncope General Chief Complaint: Syncope Stated Complaint: post op (11/20/21) syncope Time Seen by Provider: 11/20/21 17:49 History of Present Illness HPI narrative: Patient is an 86-year-old female history of breast cancer hypertension presenting today after right-sided mastectomy. She had surgery this morning. Surgery was uneventful she went home. She started feeling nauseous and dizzy. EMS was called she had a syncopal episode per EMS. Blood pressure was initially 89 however she passed out and it dropped into the 70s. She is moaning responsive. Moving all extremities. Significant contusion over right side incision. Patient becoming more responsive but overall very poor historian. States she went from surgery she ate breakfast and she lay down and woke up with EMS there. Related Data Home Medications Medication Instructions Recorded Confirmed amlodipine 5 mg tablet 5 mg PO QNOON 12/04/19 11/20/21 aspirin 81 mg chewable tablet 81 mg PO BEDTIME 12/04/19 11/20/21 hydrochlorothiazide 25 mg tablet 25 mg PO QNOON 12/04/19 11/20/21 losartan 100 mg tablet 100 mg PO QNOON 12/04/19 11/20/21 lovastatin 40 mg tablet 40 mg PO BEDTIME 12/04/19 11/20/21 Previous Rx's Medication Instructions Recorded acetaminophen 325 mg capsule 650 mg PO QID PRN pain #60 caps 10/24/21 (Tylenol) ibuprofen 200 mg tablet 400 mg PO Q6H #60 tabs 10/24/21 oxycodone 5 mg tablet 5 mg PO Q6H PRN pain #20 tabs 10/24/21 docusate sodium 100 mg capsule 100 mg PO BID #30 caps 11/20/21 (Colace) doxycycline monohydrate 100 mg 100 mg PO BID #14 caps 11/20/21 capsule Allergies Allergy/AdvReac Type Severity Reaction Status Date / Time No Known Drug Allergies Allergy Verified 11/07/21 09:26 Patient History Medical History Elevated cholesterol Hypertension Lipoma of breast No significant medical problems Surgical History History of lumpectomy of right breast (10/24/21) Social History household members: spouse Smoking Status: Former smoker alcohol intake: never Smoking Status: Former smoker alcohol intake frequency: 0-2 drinks per day Substance Use Type: does not use Exam Initial Vital Signs Initial Vital Signs: Vital Signs Pulse Oximetry 97 11/20/21 17:48 GENERAL: Patient responsive overall appears very ill slightly HEENT: Head atraumatic,EOMI, pupils reactive, face symmetric, [moist] mucous membranes CARDIOVASCULAR: Regular rate and rhythm without murmurs, rubs or gallops. RESPIRATORY: Breath sounds equal bilaterally, no wheezes rales or rhonchi. ABDOMEN: Soft, tender lower abdominal tension EXTREMITIES: Normal range of motion, no clubbing or edema. Neurovascularly intact NEUROLOGICAL: Alert and oriented x4.Normal gait and speech. SKIN: Significant contusion over right-sided chest wall Procedures Central Line Placement Left IJ: Patient Placed on Monitor/Pulse Ox: Yes Central Line Prep: Chlorhexidine scrub and sterile drapes applied Local Anesthetic: lidocaine 1% Amount of anesthesia used (mL): 5 Central Line Lumen Inserted: triple Post Procedure: sutured in place, good blood return and all ports aspirated, flushed, capped (blue port does not flush or draw back, all others work) Post Procedure X-Ray: tip of catheter in good position and no pneumothorax seen Course Orders Ordered: ED Orders 11/20/21 17:45 Complete Blood Count AUTO DIFF Stat Comprehensive Metabolic Panel Stat Lactate (Lactic Acid) Stat Lipase Stat Magnesium Stat Partial Thromboplastin Time Stat Procalcitonin Stat Prothrombin Time INR Stat Troponin & CK Cardiac Panel Stat 11/20/21 17:50 XR chest 1V Stat EKG-12 Lead Stat 11/20/21 17:53 CT chest abd pel w con Stat CT head/brain wo con Stat 11/20/21 18:02 COVID19 -Nasal RAPID/Pre-Proc Stat Packed Cells Stat Type and Screen Stat 11/20/21 22:08 Blood Culture Stat Acetaminophen (Acetaminophen 325 Mg Tablet) 650 mg PO Q6HR ARIELA Dextrose (Dextrose 50 % In Water 25 Gm/50 Ml Syringe) 25 gm IV PRN PRN; Protocol PRN Reason: Hypoglycemia Hydromorphone HCl (Hydromorphone 0.5 Mg Inj) 0.5 mg IV Q4H PRN PRN Reason: Breakthrough pain only (8-10) NOREPINEPHRINE BITARTRATE/D5W (Levophed) 4 mg in 250 mls @ 30 mls/hr IV TITRATE ARIELA; Protocol Last Titration: 11/20/21 23:15 Dose: 0 mcg/min, 0 mls/hr Documented By: Titration: 11/20/21 23:00 Dose: 1 mcg/min, 3.75 mls/hr Documented By: Titration: 11/20/21 22:30 Dose: 2 mcg/min, 7.5 mls/hr Documented By: Titration: 11/20/21 22:00 Dose: 3 mcg/min, 11.25 mls/hr Documented By: Titration: 11/20/21 21:30 Dose: 4 mcg/min, 15 mls/hr Documented By: Titration: 11/20/21 19:09 Dose: 6 mcg/min, 22.5 mls/hr Documented By: Titration: 11/20/21 18:55 Dose: 8 mcg/min, 30 mls/hr Documented By: Titration: 11/20/21 18:40 Dose: 6 mcg/min, 22.5 mls/hr Documented By: Titration: 11/20/21 18:30 Dose: 8 mcg/min, 30 mls/hr Documented By: Titration: 11/20/21 18:24 Dose: 4 mcg/min, 15 mls/hr Documented By: Titration: 11/20/21 18:18 Dose: 0 mcg/min, 0 mls/hr Documented By: JOSÉ MANUEL Titration: 11/20/21 18:07 Dose: 6 mcg/min, 22.5 mls/hr Documented By: JOSÉ MANUEL Admin: 11/20/21 17:55 Dose: 10 mcg/min, 37.5 mls/hr Documented By: JOSÉ MANUEL Lactated Ringer's (Lactated Ringers) 1,000 mls @ 75 mls/hr IV CONT ARIELA Last Infusion: 11/20/21 23:00 Dose: 75 mls/hr Documented By: Admin: 11/20/21 21:56 Dose: 100 mls/hr Documented By: AMAYA Desmopressin Acetate 20 mcg/ (Sodium Chloride) 105 mls @ 200 mls/hr IV NOW ONE Stop: 11/21/21 01:31 Insulin Human Lispro (Insulin Lispro 100 Unit/Ml 3ml Vial) 0 unit SUBCUT Q6H ARIELA; Protocol Last Admin: 11/20/21 22:58 Dose: 2 unit Documented By: AMAYA Co-signed By: JOHN Tramadol HCl (Tramadol 50 Mg Tablet) 50 mg PO Q4H PRN PRN Reason: Pain, Moderate (4-6) Discontinued Medications Hydromorphone HCl (Hydromorphone 2 Mg Inj) 0 mg IV Q5MIN PRN PRN Reason: Pain, Mild (1-3) Sodium Chloride (Normal Saline 0.9%) 1,000 mls @ 1,000 mls/hr IV CONT ARIELA Last Infusion: 11/20/21 18:45 Dose: 0 mls/hr Documented By: Admin: 11/20/21 18:30 Dose: 1,000 mls/hr Documented By: JESSICA Cefazolin Sodium/Dextrose (Ancef) 100 mls @ 200 mls/hr IV NOW ONE Stop: 11/20/21 20:56 Last Infusion: 11/20/21 20:05 Dose: 0 mls/hr Documented By: Admin: 11/20/21 19:50 Dose: 200 mls/hr Documented By: VARUN Insulin Human Lispro (Insulin Lispro 100 Unit/Ml 3ml Vial) 0 unit SUBCUT Q6H ARIELA; Protocol Insulin Human Regular (Insulin Regular 100 Unit/Ml 3 Ml Vial) 5 unit IV NOW ONE Stop: 11/20/21 20:11 Ondansetron HCl (Ondansetron 4 Mg/2 Ml Inj) 4 mg IV NOW ONE Stop: 11/20/21 17:51 Last Admin: 11/20/21 17:53 Dose: 4 mg Documented By: JOSÉ MANUEL(2) Vital Signs Vital signs: Vital Signs - 8 hr 11/20/21 17:49 11/20/21 17:48 11/20/21 17:50 Temperature 97.4 F L Pulse Rate 103 H 102 H Respiratory Rate 34 H 26 H Blood Pressure 69/37 L Pulse Oximetry 96 97 96 Oxygen Delivery Method Room Air 11/20/21 17:51 11/20/21 17:51 11/20/21 17:55 Temperature Pulse Rate 97 H 93 H Respiratory Rate 31 H 29 H Blood Pressure 69/37 L Pulse Oximetry 94 98 Oxygen Delivery Method 11/20/21 17:58 11/20/21 17:58 11/20/21 18:21 Temperature Pulse Rate 94 H 91 H Respiratory Rate 25 H 24 Blood Pressure 83/53 L Pulse Oximetry 98 96 Oxygen Delivery Method 11/20/21 18:25 11/20/21 18:27 11/20/21 18:27 Temperature Pulse Rate 84 84 Respiratory Rate 15 19 Blood Pressure 89/42 L Pulse Oximetry 92 93 Oxygen Delivery Method 11/20/21 18:28 11/20/21 18:28 11/20/21 18:30 Temperature Pulse Rate 83 Respiratory Rate Blood Pressure 83/44 L 76/41 L Pulse Oximetry 92 Oxygen Delivery Method 11/20/21 18:30 11/20/21 18:33 11/20/21 18:33 Temperature Pulse Rate 83 86 Respiratory Rate 22 Blood Pressure 99/55 L Pulse Oximetry 96 92 Oxygen Delivery Method 11/20/21 18:34 11/20/21 18:34 11/20/21 18:35 Temperature Pulse Rate 86 Respiratory Rate 26 H Blood Pressure 89/46 L 100/52 L Pulse Oximetry 93 Oxygen Delivery Method 11/20/21 18:35 11/20/21 18:38 11/20/21 18:38 Temperature Pulse Rate 87 94 H Respiratory Rate 22 24 Blood Pressure 124/60 Pulse Oximetry 94 96 Oxygen Delivery Method 11/20/21 18:40 11/20/21 18:40 11/20/21 18:42 Temperature Pulse Rate 96 H 94 H Respiratory Rate 22 21 Blood Pressure 140/65 Pulse Oximetry 97 94 Oxygen Delivery Method 11/20/21 18:42 11/20/21 18:45 11/20/21 18:45 Temperature Pulse Rate 99 H Respiratory Rate 18 Blood Pressure 142/63 H 139/62 Pulse Oximetry 97 Oxygen Delivery Method 11/20/21 18:48 11/20/21 18:48 11/20/21 18:50 Temperature Pulse Rate 96 H Respiratory Rate 20 Blood Pressure 138/62 124/58 L Pulse Oximetry 97 Oxygen Delivery Method 11/20/21 18:50 11/20/21 18:53 11/20/21 18:53 Temperature Pulse Rate 96 H 96 H Respiratory Rate 25 H Blood Pressure 111/55 L Pulse Oximetry 97 98 Oxygen Delivery Method 11/20/21 18:55 11/20/21 18:55 11/20/21 18:57 Temperature Pulse Rate 96 H Respiratory Rate 24 Blood Pressure 110/58 L 111/57 L Pulse Oximetry 97 Oxygen Delivery Method 11/20/21 18:57 11/20/21 19:00 11/20/21 19:00 Temperature Pulse Rate 99 H 101 H Respiratory Rate 21 25 H Blood Pressure 110/55 L Pulse Oximetry 97 98 Oxygen Delivery Method 11/20/21 19:02 11/20/21 19:02 11/20/21 19:05 Temperature Pulse Rate 100 H Respiratory Rate 21 Blood Pressure 113/55 L 114/57 L Pulse Oximetry 95 Oxygen Delivery Method 11/20/21 19:05 11/20/21 19:07 11/20/21 19:07 Temperature Pulse Rate 96 H 98 H Respiratory Rate 24 21 Blood Pressure 109/59 L Pulse Oximetry 97 98 Oxygen Delivery Method 11/20/21 19:10 11/20/21 19:10 11/20/21 19:14 Temperature Pulse Rate 97 H 101 H Respiratory Rate 18 Blood Pressure 103/56 L Pulse Oximetry 99 98 Oxygen Delivery Method 11/20/21 19:14 11/20/21 19:15 11/20/21 19:15 Temperature Pulse Rate 96 H Respiratory Rate Blood Pressure 65/38 L 95/55 L Pulse Oximetry 96 Oxygen Delivery Method 11/20/21 19:18 11/20/21 19:18 11/20/21 19:19 Temperature Pulse Rate 91 H 90 Respiratory Rate 23 Blood Pressure 93/50 L Pulse Oximetry 96 95 Oxygen Delivery Method 11/20/21 19:20 11/20/21 19:20 11/20/21 19:23 Temperature 95.9 F L Pulse Rate 86 Respiratory Rate 16 Blood Pressure 86/47 L 125/60 Pulse Oximetry 95 Oxygen Delivery Method 11/20/21 19:23 11/20/21 19:25 11/20/21 19:25 Temperature 95.9 F L 95.9 F L Pulse Rate 86 91 H Respiratory Rate 19 20 Blood Pressure 124/60 Pulse Oximetry 94 94 Oxygen Delivery Method 11/20/21 19:27 11/20/21 19:27 Temperature 95.9 F L Pulse Rate 90 Respiratory Rate 23 Blood Pressure 118/56 L Pulse Oximetry 93 Oxygen Delivery Method MDM - Syncope Lab Data Result diagrams: 11/20/21 22:08 11/20/21 17:45 Labs: Lab Results 11/20/21 11/20/21 11/20/21 Range/Units 17:45 17:45 17:45 WBC 18.6 H (4.5-11.0) X10^3/uL RBC 3.21 L (4.0-5.2) X10^6/uL Hgb 10.4 L (12.0-16.0) g/dL Hct 30.5 L (36-46) % MCV 95.1 (80-100) fL MCH 32.4 (26-34) PG MCHC 34.1 (30-36) % RDW 12.9 (11.6-14.8) % Plt Count 260 (150-400) X10^3/uL Neut % (Auto) 82.2 H (50-75) % Lymph % (Auto) 14.1 L (25-40) % Lander % (Auto) 3.6 (3-14) % Eos % (Auto) 0.0 L (2-4) % Baso % (Auto) 0.1 (0-2) % Neut # (Auto) 74216 H (1640-5358) /uL Lymph # (Auto) 2600 (3355-1592) /uL Lander # (Auto) 700 (0-900) /uL Eos # (Auto) 0 (0-450) /uL Baso # (Auto) 0 (0-100) /uL PT 12.7 (10.1-12.7) SECONDS INR 1.1 (0.9-1.3) APTT 25 L (26-36) SECONDS Sodium 132 L (137-145) mmol/L Potassium 3.6 (3.4-5.1) mmol/L Chloride 95 L (98-107) mmol/L Carbon Dioxide 18 L (22-32) mmol/L BUN 24 H (7-17) mg/dL Creatinine 1.33 H (0.52-1.04) mg/dL Estimated GFR 39 L (>60) mL/min BUN/Creatinine Ratio 18.0 (6-22) Glucose 311 H (80-110) mg/dL Lactate (0.7-2.1) mmol/L Calcium 8.9 (8.4-10.2) mg/dL Magnesium 1.9 (1.6-2.3) mg/dL Total Bilirubin 0.4 (0.2-1.3) mg/dL AST 22 (14-36) IU/L ALT 25 (<35) IU/L Alkaline Phosphatase 48 (38-126) U/L Total Creatine Kinase 92 (30-135) U/L CK-MB (CK-2) TNP CK-MB (CK-2) Rel Index TNP Troponin I < 0.012 (0.01-0.034) ng/mL Total Protein 6.1 L (6.3-8.2) g/dL Albumin 3.4 L (3.5-5.0) g/dL Globulin 2.7 (1.7-4.1) g/dL Albumin/Globulin Ratio 1.3 (1.0-2.8) Lipase 44 (23-300) U/L Procalcitonin (<0.5) ng/mL SARS-CoV-2 (PCR) (Negative) Blood Type Antibody Screen Crossmatch 11/20/21 11/20/21 11/20/21 Range/Units 17:45 17:45 17:45 WBC (4.5-11.0) X10^3/uL RBC (4.0-5.2) X10^6/uL Hgb (12.0-16.0) g/dL Hct (36-46) % MCV (80-100) fL MCH (26-34) PG MCHC (30-36) % RDW (11.6-14.8) % Plt Count (150-400) X10^3/uL Neut % (Auto) (50-75) % Lymph % (Auto) (25-40) % Lander % (Auto) (3-14) % Eos % (Auto) (2-4) % Baso % (Auto) (0-2) % Neut # (Auto) (6649-2593) /uL Lymph # (Auto) (3356-3648) /uL Lander # (Auto) (0-900) /uL Eos # (Auto) (0-450) /uL Baso # (Auto) (0-100) /uL PT Cancelled (10.1-12.7) SECONDS INR Cancelled (0.9-1.3) APTT (26-36) SECONDS Sodium (137-145) mmol/L Potassium (3.4-5.1) mmol/L Chloride (98-107) mmol/L Carbon Dioxide (22-32) mmol/L BUN (7-17) mg/dL Creatinine (0.52-1.04) mg/dL Estimated GFR (>60) mL/min BUN/Creatinine Ratio (6-22) Glucose (80-110) mg/dL Lactate 8.7 H* (0.7-2.1) mmol/L Calcium (8.4-10.2) mg/dL Magnesium (1.6-2.3) mg/dL Total Bilirubin (0.2-1.3) mg/dL AST (14-36) IU/L ALT (<35) IU/L Alkaline Phosphatase (38-126) U/L Total Creatine Kinase (30-135) U/L CK-MB (CK-2) CK-MB (CK-2) Rel Index Troponin I (0.01-0.034) ng/mL Total Protein (6.3-8.2) g/dL Albumin (3.5-5.0) g/dL Globulin (1.7-4.1) g/dL Albumin/Globulin Ratio (1.0-2.8) Lipase (23-300) U/L Procalcitonin 0.06 (<0.5) ng/mL SARS-CoV-2 (PCR) (Negative) Blood Type Antibody Screen Crossmatch 11/20/21 11/20/21 Range/Units 18:02 18:02 WBC (4.5-11.0) X10^3/uL RBC (4.0-5.2) X10^6/uL Hgb (12.0-16.0) g/dL Hct (36-46) % MCV (80-100) fL MCH (26-34) PG MCHC (30-36) % RDW (11.6-14.8) % Plt Count (150-400) X10^3/uL Neut % (Auto) (50-75) % Lymph % (Auto) (25-40) % Lander % (Auto) (3-14) % Eos % (Auto) (2-4) % Baso % (Auto) (0-2) % Neut # (Auto) (3436-8366) /uL Lymph # (Auto) (6109-5673) /uL Lander # (Auto) (0-900) /uL Eos # (Auto) (0-450) /uL Baso # (Auto) (0-100) /uL PT (10.1-12.7) SECONDS INR (0.9-1.3) APTT (26-36) SECONDS Sodium (137-145) mmol/L Potassium (3.4-5.1) mmol/L Chloride (98-107) mmol/L Carbon Dioxide (22-32) mmol/L BUN (7-17) mg/dL Creatinine (0.52-1.04) mg/dL Estimated GFR (>60) mL/min BUN/Creatinine Ratio (6-22) Glucose (80-110) mg/dL Lactate (0.7-2.1) mmol/L Calcium (8.4-10.2) mg/dL Magnesium (1.6-2.3) mg/dL Total Bilirubin (0.2-1.3) mg/dL AST (14-36) IU/L ALT (<35) IU/L Alkaline Phosphatase (38-126) U/L Total Creatine Kinase (30-135) U/L CK-MB (CK-2) CK-MB (CK-2) Rel Index Troponin I (0.01-0.034) ng/mL Total Protein (6.3-8.2) g/dL Albumin (3.5-5.0) g/dL Globulin (1.7-4.1) g/dL Albumin/Globulin Ratio (1.0-2.8) Lipase (23-300) U/L Procalcitonin (<0.5) ng/mL SARS-CoV-2 (PCR) Negative (Negative) Blood Type O Positive Antibody Screen Negative Crossmatch See Detail Imaging Data CT scan - chest: Radiologist's Impression: Signed Patient: Krupa Solis MR#: [id number] : 1935 Acct:[id number] Age/Sex: 86 / F Date of Service: 11/20/21 Loc: 90A-1 Accession Number: [id number] ?? Procedure: CT chest abd pel w con Ordering Provider: Genoveva Gautam D.O. PROCEDURE:? CT CHEST ABD PEL W CON ? INDICATIONS:? hypotensive s/p mastectomy ? TECHNIQUE:? After the administration of intravenous contrast, 5 mm thick sections acquired from the lung apices to the symphysis.? 2.5 mm thick coronal and sagittal reformats were acquired. ?Additional 7 mm thick coronal maximum intensity projection (MIP) reformats acquired through the lungs.? Optional 10-minute delayed imaging may be performed from the kidneys to the bladder.? For radiation dose reduction, the following was used:? automated exposure control, adjustment of mA and/or kV according to patient size.? ? COMPARISON:? None. ? FINDINGS:? Image quality:? Excellent.? ? CHEST:? Lungs:? No pulmonary contusions or lacerations.? No acute airspace opacities.? Chronic appearing interstitial opacities are present bilaterally.? No pneumothorax or hemothorax. ?Central and peripheral airways appear patent and normal in caliber.? ? Mediastinum:? No mediastinal hematomas.? Heart size is normal.? No pericardial effusion.? Thoracic aorta and pulmonary arteries demonstrate normal size and enhancement.? No mediastinal or hilar adenopathy.? Esophagus is normal in caliber.? No hiatal hernia.? ? Chest wall:? Large heterogeneous collection within the soft tissues of the anterior right chest wall containing gas and material of varying densities, some more hypodense components, some more hyperdense components, could reflect blood products.? High-density material at the inferior aspect of the collection (2/53) could represent contrast extravasation/active hemorrhage, evaluation limited without delayed images.? A soft tissue drain is present in this area. ? ? ABDOMEN:? Solid organs:? Liver is normal in size and enhancement, without lacerations.? Gallbladder is unremarkable.? Biliary system is non-dilated.? Pancreas enhances normally, without transection.? Spleen is normal in size and enhancement, without lacerations.? No adrenal hematomas.? Both kidneys enhance normally, without hydronephrosis or lacerations.? Left kidney appears mildly atrophic.? Cortical cysts are present without definite suspicious features visualized. ? Peritoneum and bowel:? No free fluid or air.? Unenhanced bowel loops demonstrate normal wall thickness and caliber.? ? Nodes and vessels:? No retroperitoneal or mesenteric adenopathy.? Aorta and inferior vena cava are normal in size and enhancement.? ? Miscellaneous:? No ventral hernias.? ? ? PELVIS:? Genitourinary:? Bladder wall thickness is normal.? ? Miscellaneous:? No inguinal hernias or adenopathy.? ? Bones:? Pelvic ring and hip joints appear intact.? No vertebral compression fractures.? ? ? IMPRESSION:? Findings suspicious for active hemorrhage at the right inferior chest wall/mastectomy site. ? ? Results discussed with Dr. Gautam by Dr. Narvaez at 1919 hours on 11/20/2021. ? ? ? Dictated by: Greg Narvaez M.D. on 11/20/2021 at 19:09 ? ? Chest x-ray: Radiologist's Impression: VIVIANA Youngblood [id number] XRay Report Signed Patient: Krupa Solis MR#: [id number] : 1935 Acct:[id number] Age/Sex: 86 / F Date of Service: 11/20/21 Loc: ED Accession Number: [id number] ?? Procedure: XR chest 1V Ordering Provider: Genoveva Gautam D.O. PROCEDURE:? XR CHEST 1V ? INDICATIONS:? chest pain ? TECHNIQUE:? One view of the chest was acquired.? ? COMPARISON:? [facility], CR, XR CHEST 1V, 12/04/2019, 12:34.? [facility], CR, CHEST 1 VIEW, 08/25/2006, 5:27.? [facility], CT, CT CHEST ABD PEL W CON, 11/20/2021, 18:10. ? FINDINGS:? ? Surgical changes and devices:? Right chest wall soft tissue drain ? Lungs and pleura:? Lung volumes are low.? Bilateral interstitial opacities are present.? No pleural effusion or pneumothorax. ? Mediastinum:? Cardiac silhouette is enlarged. ? Bones and chest wall:? Right chest wall soft tissue gas better evaluated on same-day CT. ? IMPRESSION:? Findings consistent with mild fluid overload/CHF. ? ? Dictated by: Greg Narvaez M.D. on 11/20/2021 at 18:22? CX#2: Radiologist's Impression: XRay Report Signed Patient: Krupa Solis MR#: [id number] : 1935 Acct:[id number] Age/Sex: 86 / F Date of Service: 11/20/21 Loc: ED Accession Number: [id number] ?? Procedure: XR chest 1V Ordering Provider: Genoveva Gautam D.O. PROCEDURE:? XR CHEST 1V ? INDICATIONS:? chest pain ? TECHNIQUE:? One view of the chest was acquired.? ? COMPARISON:? [facility], CR, XR CHEST 1V, 12/04/2019, 12:34.? [facility], CR, CHEST 1 VIEW, 08/25/2006, 5:27.? [facility], CT, CT CHEST ABD PEL W CON, 11/20/2021, 18:10. ? FINDINGS:? ? Surgical changes and devices:? Right chest wall soft tissue drain ? Lungs and pleura:? Lung volumes are low.? Bilateral interstitial opacities are present.? No pleural effusion or pneumothorax. ? Mediastinum:? Cardiac silhouette is enlarged. ? Bones and chest wall:? Right chest wall soft tissue gas better evaluated on same-day CT. ? IMPRESSION:? Findings consistent with mild fluid overload/CHF. ? ? Dictated by: Greg Narvaez M.D. on 11/20/2021 at 18:22 ? ? Approved by: Greg Narvaez M.D. on 11/20/2021 at 18:24 ? ECG Data Interpretation: Normal sinus rhythm it is 3 p.r. interval 168 QRS [address] changes or T-wave inversions MDM Narrative Medical decision making narrative: The patient is persistently hypotensive in the ED. IV fluids started but minimal response quickly Levophed was started. She stabilized for CT. Concern for postoperative bleeding. She is found have significant lactic acid of 8.3 and leukocytosis of 18. Blood cultures pending but I think unlikely to be infectious related. Dr. Eboni parham came to the ED to evaluate patient. Concern for postoperative bleeding. Patient received 1 L of IV fluids from EMS. Fluids were. Levophed continued PRBCs ordered. Central line was placed and patient went to the OR. Critical Care Time Critical Care Time Critical Care Time: Yes Total Critical Care Time: 35 Attestation: The high probability of a clinically significant, sudden or life threatening deterioration of the cardiovascular system(s) required my full and direct attention, intervention and personal management. The aggregate critical care time was 35 minutes. This time is in addition to time spent performing reported procedures but includes the following: x Data Review and interpretation x Patient assessment and monitoring of vital signs x Documentation x Medication orders and management Discharge Plan Departure Patient Disposition: Admitted As Inpatient Clinical Impression: Post-op bleeding Admit Date/Time: 11/20/21 19:27 Admit Provider: Jr Lyn
[2021-11-20] MEDS: NOREPINEPHRINE BITARTRATE/D5W 4 MG/250 ML PLAST..BAG 37.5 MG IV (17:55)
[2021-11-20 18:05] LABS: INR 1.1 (0.9-1.3); Prothrombin Time 12.7 SECONDS (10.1-12.7)
[2021-11-20 18:06] LABS: Add Manual Diff / Slide Review NO; Basophils Absolute Auto 0 /uL (0-100); Basophils Percent Auto 0.1 % (0-2); Eosinophils Absolute Auto 0 /uL (0-450); Hematocrit 30.5 % (36-46); Hemoglobin 10.4 g/dL (12.0-16.0); Lymphocytes Absolute Auto 2600 /uL (1100-4500); Lymphocytes Percent Auto 14.1 % (25-40); Mean Corpuscular HGB Conc 34.1 % (30-36); Mean Corpuscular Hemoglobin 32.4 PG (26-34); Mean Corpuscular Volume 95.1 fL (80-100); Monocytes Absolute Auto 700 /uL (0-900); Monocytes Percent Auto 3.6 % (3-14); Neutrophils Absolute Auto 15300 /uL (1500-7000); Neutrophils Percent Auto 82.2 % (50-75); Platelet Count 260 X10^3/uL (150-400); Red Blood Cell Count 3.21 X10^6/uL (4.0-5.2); Red Cell Distribution Width 12.9 % (11.6-14.8); White Blood Cell Count 18.6 X10^3/uL (4.5-11.0)
[2021-11-20 18:07] LABS: PTT Partial Thromboplastin Tim 25 SECONDS (26-36)
[2021-11-20 18:15] LABS: Albumin 3.4 g/dL (3.5-5.0); Albumin Globulin Ratio 1.3 (1.0-2.8); Alkaline Phosphatase 48 U/L (38-126); Aspartate Aminotransferase 22 IU/L (14-36); Bilirubin Total 0.4 mg/dL (0.2-1.3); Blood Urea Nitrogen 24 mg/dL (7-17); Calcium 8.9 mg/dL (8.4-10.2); Carbon Dioxide 18 mmol/L (22-32); Chloride 95 mmol/L (98-107); Creatine Kinase 92 U/L (30-135); Estimated Glomerular Filt Rate 39 mL/min (>60); Globulin 2.7 g/dL (1.7-4.1); Glucose 311 mg/dL (80-110); HEMOLYSIS < 15 (0-50); Lipase 44 U/L (23-300); Magnesium 1.9 mg/dL (1.6-2.3); Potassium 3.6 mmol/L (3.4-5.1); Sodium 132 mmol/L (137-145); Total Protein 6.1 g/dL (6.3-8.2)
[2021-11-20 18:25] LABS: Alanine Aminotransferase 25 IU/L (<35)
[2021-11-20 18:26] LABS: Troponin I < 0.012 ng/mL (0.01-0.034)
[2021-11-20 18:28] LABS: Lactate (Lactic Acid) 8.7 mmol/L (0.7-2.1)
[2021-11-20] MEDS: SODIUM CHLORIDE 0.9% 1,000 ML 1000 ML IV (18:30)
[2021-11-20 18:31] LABS: Procalcitonin 0.06 ng/mL (<0.5)
[2021-11-20 18:39] LABS: COVID19 -Nasal RAPID Negative (Negative)
--- NOTE | 2021-11-20 19:44 | PC.NURSE ---
blue port of triple lumen right neck does not flush and no blood return
[2021-11-20] MEDS: CEFAZOLIN 2 GM/100 ML PREMIX 100 ML IV (19:50)
[2021-11-20 19:58] LABS: Reflexed Lactate in 2 Hours Y
[2021-11-20 20:13] LABS: Appearance Urine UA CLEAR; Bilirubin Urine UA NEGATIVE (NEGATIVE); Color Urine UA YELLOW; Glucose Urine UA TRACE g/dL (Negative); Ketones Urine UA NEGATIVE (NEGATIVE); Leukocyte Esterase Urine UA NEGATIVE (NEGATIVE); Nitrite Urine UA NEGATIVE (Negative); Occult Blood Urine UA NEGATIVE (Negative); Protein Urine UA TRACE (Negative); Specific Gravity Urine UA <=1.005 (1.000-1.035); Urobilinogen Urine UA 0.2 E.U./dL (0.2)
[2021-11-20 20:22] LABS: pH Urine UA 6.5 (4.5-8.0)
[2021-11-20 20:29] LABS: Bacteria Urine None Seen; Culture Indicated Urine Cult Not Indicated; RBC Urine 0-1/HPF (0-5/HPF); Squamous Epithelial Cell Urine 0-1 /HPF (0-5/HPF); WBC Urine 0-1/HPF (0-5/HPF)
--- NOTE | 2021-11-20 20:40 | SUR.OPER ---
Addendum entered by Gloria Brasher R.N. 11/20/21 20:42: No signs of clotting, discoloration, or leaking on blood package. Original Note: TAR NOTE - Blood administered after 15 minute time period - blood kept on ice. Okayed by Dr. White.
--- NOTE | 2021-11-20 20:47 | SUR.OPER ---
Supine on padded OR bed, head on pillow, arms secured on padded arm boards at <90 degrees abduction, legs uncrossed, safety belt at thigh.
--- NOTE | 2021-11-20 21:18 | P.OP_ITS ---
Operative Date/Time/Diagnoses Date of procedure: 11/20/21 Time of procedure: 21:19 Pre-op diagnosis: Postoperative hemorrhage Post-op diagnosis: same Procedure & Clinicians Procedure: Evacuation of hematoma and control of bleeding Same procedure as scheduled: Yes Indications: 86-year-old woman who underwent a right mastectomy and thoracic nerve block earlier today return to the emergency room hypotensive in with a large chest wall hematoma. She is taken to the operating room consent is given by her and daughter for evacuation of hematoma and control bleeding Surgeon: Jr Lyn Click Yes if Unassisted: Yes Anesthesia Type: General Operative Notes Findings: Large volume of hematoma approximately 1 L no active bleeding. Intramuscular hematoma within the superior aspect of the pectoralis major. Specimen(s): none sent Estimated Blood Loss (mL): 100 Procedure in detail: Patient was brought to the operating room placed supine on the table. Bilateral lower extremity compression devices were applied. General anesthesia was induced and she was intubated with a endotracheal tube. She received 2 g of Ancef prior to skin incision. She has prepped and draped in sterile fashion. Time-out was performed. The previous mastectomy incision was opened and the subcutaneous tissue was divided. There was a large volume of hematoma within the mastectomy cavity. The hematoma was evacuated. The cavity was then thoroughly irrigated using 9 L of saline. Careful inspection of the cavity was made. There was scant amount of oozing from the surgical bed which was controlled with electro cautery. Within the superior aspect of the pectoralis major there was a large intramuscular hematoma which was debrided of hematoma. Wound was again inspected for hemostasis and this was noted. A 19 Turkmen Jose drain was then placed into the cavity. The subcutaneous tissue was closed with Vicryl and skin closed with fallon. At the end of the operation the sponge and instrument count was correct. She was extubated and transferred to the intensive care unit in stable condition. She remained low-dose Levophed and received a total of 2 units packed red blood cells during the case. Complications: none Post-operative Condition: stable Disposition: ICU
--- NOTE | 2021-11-20 21:36 | SUR.PHASEI ---
Transported patient directly to ICU room 228 on cash teller and oxygen via simple face mask due to critical nature of patient. Report given to OMAR Dyer. ICU staff and anesthesiology at bedside assisting with transfer of care. Patient confused and slight delirium noted on transfer to ICU. Oriented patient to place, time and circumstances. Initial recovery care completed in the ICU by post anesthesia nurse.
--- NOTE | 2021-11-20 21:45 | SUR.PHASEI ---
Ice chip given to patient due to dry mouth. Swallowing without difficulty.
[2021-11-20] MEDS: LACTATED RINGERS 1,000 ML 100 ML IV (21:56)
[2021-11-20 22:22] LABS: Add Manual Diff / Slide Review NO; Basophils Absolute Auto 0 /uL (0-100); Basophils Percent Auto 0.1 % (0-2); Eosinophils Absolute Auto 0 /uL (0-450); Hematocrit 33.4 % (36-46); Hemoglobin 11.6 g/dL (12.0-16.0); Lymphocytes Absolute Auto 1400 /uL (1100-4500); Lymphocytes Percent Auto 5.8 % (25-40); Mean Corpuscular HGB Conc 34.6 % (30-36); Mean Corpuscular Hemoglobin 31.1 PG (26-34); Mean Corpuscular Volume 89.7 fL (80-100); Monocytes Absolute Auto 2100 /uL (0-900); Neutrophils Absolute Auto 19900 /uL (1500-7000); Neutrophils Percent Auto 85.1 % (50-75); Platelet Count 192 X10^3/uL (150-400); Red Blood Cell Count 3.72 X10^6/uL (4.0-5.2); Red Cell Distribution Width 15.3 % (11.6-14.8); White Blood Cell Count 23.4 X10^3/uL (4.5-11.0)
[2021-11-20 22:30] LABS: Lactate 2HR (Lactic Acid Rflx) 6.6 mmol/L (0.7-2.1)
[2021-11-20] MEDS: INSULIN LISPRO 100 UNIT/ML 3ML VIAL SUBCUT (22:58)
--- NOTE | 2021-11-20 23:41 | P.TELICUCN_ITS ---
History of Present Illness Consult details IF CAMERA ACTIVATED, patient seen via real-time interactive audiovisual communication: Camera activated Chief complaint: post op (11/20/21) syncope Consent obtained for tele-supervisor rework care: Yes Patient Location: ICU Provider location (State): [place] Other participants/roles: OMAR Narrative: 86 y.o. female who had a R mastectomy and USG-guided nerve block during the security monitor of 11/20; she was discharged home after an uneventful PACU course. She returned to the ED and was hypotensive. Dr. Lyn reports that she was taken back to the OR where a large R chest wall hematoma was evacuated during wound reexploration. There weren't any signs of recurrent bleeding. Of note, she was on ASA recently. Currently on NE 4 mcg/min. PMHx notable for HLD and HTN. [facility] Medical History Elevated cholesterol Hypertension Lipoma of breast No significant medical problems Surgical History History of lumpectomy of right breast (10/24/21) Social History household members: spouse Smoking Status: Former smoker alcohol intake: never Current Medications Current Medications Medications: Home Medications amlodipine 5 mg tablet 5 mg PO QNOON 12/04/19 [History Confirmed 11/20/21] aspirin 81 mg chewable tablet 81 mg PO BEDTIME 12/04/19 [History Confirmed 11/20/21] hydrochlorothiazide 25 mg tablet 25 mg PO QNOON 12/04/19 [History Confirmed 11/20/21] losartan 100 mg tablet 100 mg PO QNOON 12/04/19 [History Confirmed 11/20/21] lovastatin 40 mg tablet 40 mg PO BEDTIME 12/04/19 [History Confirmed 11/20/21] acetaminophen 325 mg capsule (Tylenol) 650 mg PO QID PRN pain #60 caps 10/24/21 [Rx Confirmed 11/20/21] ibuprofen 200 mg tablet 400 mg PO Q6H #60 tabs 10/24/21 [Rx Confirmed 11/18/21] oxycodone 5 mg tablet 5 mg PO Q6H PRN pain #20 tabs 10/24/21 [Rx Confirmed 11/20/21] docusate sodium 100 mg capsule (Colace) 100 mg PO BID #30 caps 11/20/21 [Rx] doxycycline monohydrate 100 mg capsule 100 mg PO BID #14 caps 11/20/21 [Rx] Visit Medications (administered) Generic Name Dose Route Start Last Admin Trade Name Mauricioq PRN Reason Stop Dose Admin NOREPINEPHRINE BITARTRATE/D5W 4 mg in 250 mls @ 30 mls/hr 11/20/21 17:56 11/20/21 22:30 Levophed IV 2 mcg/min TITRATE ARIELA 7.5 mls/hr Titration Protocol 8 MCG/MIN Lactated Ringer's 1,000 mls @ 75 mls/hr 11/20/21 21:45 11/20/21 21:56 Lactated Ringers IV 100 mls/hr CONT ARIELA Administration Insulin Human Lispro 0 unit 11/20/21 22:30 11/20/21 22:58 Insulin Lispro 100 Unit/Ml 3ml Vial SUBCUT 2 unit Q6H ARIELA Administration Protocol Exam Vital Signs (past 8 hours): - 11/20/21 17:49 11/20/21 17:48 11/20/21 17:50 Temperature 97.4 F L Pulse Rate 103 H 102 H Respiratory Rate 34 H 26 H Blood Pressure 69/37 L Pulse Oximetry 96 97 96 Oxygen Delivery Method Room Air Oxygen Flow Rate 11/20/21 17:51 11/20/21 17:51 11/20/21 17:55 Temperature Pulse Rate 97 H 93 H Respiratory Rate 31 H 29 H Blood Pressure 69/37 L Pulse Oximetry 94 98 Oxygen Delivery Method Oxygen Flow Rate 11/20/21 17:58 11/20/21 17:58 11/20/21 18:21 Temperature Pulse Rate 94 H 91 H Respiratory Rate 25 H 24 Blood Pressure 83/53 L Pulse Oximetry 98 96 Oxygen Delivery Method Oxygen Flow Rate 11/20/21 18:25 11/20/21 18:27 11/20/21 18:27 Temperature Pulse Rate 84 84 Respiratory Rate 15 19 Blood Pressure 89/42 L Pulse Oximetry 92 93 Oxygen Delivery Method Oxygen Flow Rate 11/20/21 18:28 11/20/21 18:28 11/20/21 18:30 Temperature Pulse Rate 83 Respiratory Rate Blood Pressure 83/44 L 76/41 L Pulse Oximetry 92 Oxygen Delivery Method Oxygen Flow Rate 11/20/21 18:30 11/20/21 18:33 11/20/21 18:33 Temperature Pulse Rate 83 86 Respiratory Rate 22 Blood Pressure 99/55 L Pulse Oximetry 96 92 Oxygen Delivery Method Oxygen Flow Rate 11/20/21 18:34 11/20/21 18:34 11/20/21 18:35 Temperature Pulse Rate 86 Respiratory Rate 26 H Blood Pressure 89/46 L 100/52 L Pulse Oximetry 93 Oxygen Delivery Method Oxygen Flow Rate 11/20/21 18:35 11/20/21 18:38 11/20/21 18:38 Temperature Pulse Rate 87 94 H Respiratory Rate 22 24 Blood Pressure 124/60 Pulse Oximetry 94 96 Oxygen Delivery Method Oxygen Flow Rate 11/20/21 18:40 11/20/21 18:40 11/20/21 18:42 Temperature Pulse Rate 96 H 94 H Respiratory Rate 22 21 Blood Pressure 140/65 Pulse Oximetry 97 94 Oxygen Delivery Method Oxygen Flow Rate 11/20/21 18:42 11/20/21 18:45 11/20/21 18:45 Temperature Pulse Rate 99 H Respiratory Rate 18 Blood Pressure 142/63 H 139/62 Pulse Oximetry 97 Oxygen Delivery Method Oxygen Flow Rate 11/20/21 18:48 11/20/21 18:48 11/20/21 18:50 Temperature Pulse Rate 96 H Respiratory Rate 20 Blood Pressure 138/62 124/58 L Pulse Oximetry 97 Oxygen Delivery Method Oxygen Flow Rate 11/20/21 18:50 11/20/21 18:53 11/20/21 18:53 Temperature Pulse Rate 96 H 96 H Respiratory Rate 25 H Blood Pressure 111/55 L Pulse Oximetry 97 98 Oxygen Delivery Method Oxygen Flow Rate 11/20/21 18:55 11/20/21 18:55 11/20/21 18:57 Temperature Pulse Rate 96 H Respiratory Rate 24 Blood Pressure 110/58 L 111/57 L Pulse Oximetry 97 Oxygen Delivery Method Oxygen Flow Rate 11/20/21 18:57 11/20/21 19:00 11/20/21 19:00 Temperature Pulse Rate 99 H 101 H Respiratory Rate 21 25 H Blood Pressure 110/55 L Pulse Oximetry 97 98 Oxygen Delivery Method Oxygen Flow Rate 11/20/21 19:02 11/20/21 19:02 11/20/21 19:05 Temperature Pulse Rate 100 H Respiratory Rate 21 Blood Pressure 113/55 L 114/57 L Pulse Oximetry 95 Oxygen Delivery Method Oxygen Flow Rate 11/20/21 19:05 11/20/21 19:07 11/20/21 19:07 Temperature Pulse Rate 96 H 98 H Respiratory Rate 24 21 Blood Pressure 109/59 L Pulse Oximetry 97 98 Oxygen Delivery Method Oxygen Flow Rate 11/20/21 19:10 11/20/21 19:10 11/20/21 19:14 Temperature Pulse Rate 97 H 101 H Respiratory Rate 18 Blood Pressure 103/56 L Pulse Oximetry 99 98 Oxygen Delivery Method Oxygen Flow Rate 11/20/21 19:14 11/20/21 19:15 11/20/21 19:15 Temperature Pulse Rate 96 H Respiratory Rate Blood Pressure 65/38 L 95/55 L Pulse Oximetry 96 Oxygen Delivery Method Oxygen Flow Rate 11/20/21 19:18 11/20/21 19:18 11/20/21 19:19 Temperature Pulse Rate 91 H 90 Respiratory Rate 23 Blood Pressure 93/50 L Pulse Oximetry 96 95 Oxygen Delivery Method Oxygen Flow Rate 11/20/21 19:20 11/20/21 19:20 11/20/21 19:23 Temperature 95.9 F L Pulse Rate 86 Respiratory Rate 16 Blood Pressure 86/47 L 125/60 Pulse Oximetry 95 Oxygen Delivery Method Oxygen Flow Rate 11/20/21 19:23 11/20/21 19:25 11/20/21 19:25 Temperature 95.9 F L 95.9 F L Pulse Rate 86 91 H Respiratory Rate 19 20 Blood Pressure 124/60 Pulse Oximetry 94 94 Oxygen Delivery Method Oxygen Flow Rate 11/20/21 19:27 11/20/21 19:27 11/20/21 19:30 Temperature 95.9 F L Pulse Rate 90 Respiratory Rate 23 Blood Pressure 118/56 L 108/53 L Pulse Oximetry 93 Oxygen Delivery Method Oxygen Flow Rate 11/20/21 19:30 11/20/21 21:29 11/20/21 21:42 Temperature 95.9 F L 95 F L Pulse Rate 91 H 103 H 104 H Respiratory Rate 22 32 H 20 Blood Pressure 146/67 H 120/58 L Pulse Oximetry 96 98 97 Oxygen Delivery Method Simple Mask Room Air Oxygen Flow Rate 8 11/20/21 21:46 11/20/21 21:27 11/20/21 21:29 Temperature Pulse Rate 104 H 106 H Respiratory Rate 22 Blood Pressure 119/59 L 145/105 H Pulse Oximetry 97 99 Oxygen Delivery Method Room Air Oxygen Flow Rate 11/20/21 21:29 11/20/21 21:30 11/20/21 21:30 Temperature Pulse Rate 104 H 103 H Respiratory Rate 19 18 Blood Pressure 146/67 H Pulse Oximetry 99 99 Oxygen Delivery Method Oxygen Flow Rate 11/20/21 21:35 11/20/21 21:36 11/20/21 21:36 Temperature 94.8 F L 94.8 F L Pulse Rate 102 H 102 H Respiratory Rate 26 H 28 H Blood Pressure 120/58 L Pulse Oximetry 98 97 Oxygen Delivery Method Oxygen Flow Rate 11/20/21 21:40 11/20/21 21:45 11/20/21 21:45 Temperature 94.8 F L 94.8 F L Pulse Rate 104 H 103 H Respiratory Rate 19 25 H Blood Pressure 119/59 L Pulse Oximetry 97 96 Oxygen Delivery Method Oxygen Flow Rate 11/20/21 21:50 11/20/21 21:55 11/20/21 22:00 Temperature 95.0 F L 94.8 F L Pulse Rate 104 H 104 H Respiratory Rate 30 H 21 Blood Pressure 117/63 Pulse Oximetry 98 97 Oxygen Delivery Method Oxygen Flow Rate 11/20/21 22:00 11/20/21 22:05 11/20/21 22:10 Temperature 94.8 F L 94.8 F L 94.6 F L Pulse Rate 113 H 113 H 110 H Respiratory Rate 22 23 22 Blood Pressure Pulse Oximetry 97 98 98 Oxygen Delivery Method Oxygen Flow Rate 11/20/21 22:15 11/20/21 22:15 11/20/21 22:20 Temperature 94.8 F L 95.0 F L Pulse Rate 108 H 102 H Respiratory Rate 29 H 21 Blood Pressure 111/59 L Pulse Oximetry 98 98 Oxygen Delivery Method Oxygen Flow Rate 11/20/21 22:25 11/20/21 22:30 11/20/21 23:00 Temperature 94.8 F L 95.0 F L Pulse Rate 100 H 101 H Respiratory Rate 20 24 Blood Pressure Pulse Oximetry 96 97 Oxygen Delivery Method Room Air Oxygen Flow Rate 11/20/21 22:30 11/20/21 22:35 11/20/21 22:40 Temperature 95.2 F L 95.2 F L Pulse Rate 97 H 89 Respiratory Rate 15 15 Blood Pressure 124/66 Pulse Oximetry 98 97 Oxygen Delivery Method Oxygen Flow Rate 11/20/21 22:45 11/20/21 22:45 11/20/21 22:50 Temperature 95.2 F L 95.4 F L Pulse Rate 90 92 H Respiratory Rate 20 18 Blood Pressure 114/62 Pulse Oximetry 97 96 Oxygen Delivery Method Oxygen Flow Rate 11/20/21 22:55 11/20/21 23:00 11/20/21 23:00 Temperature 95.4 F L 95.4 F L Pulse Rate 95 H 91 H Respiratory Rate 16 19 Blood Pressure 119/63 Pulse Oximetry 96 95 Oxygen Delivery Method Oxygen Flow Rate 11/20/21 23:05 11/20/21 23:10 11/20/21 23:15 Temperature 95.4 F L 95.4 F L Pulse Rate 84 109 H Respiratory Rate 18 17 Blood Pressure 121/63 Pulse Oximetry 92 94 Oxygen Delivery Method Oxygen Flow Rate 11/20/21 23:15 Temperature 95.4 F L Pulse Rate 107 H Respiratory Rate 17 Blood Pressure Pulse Oximetry 94 Oxygen Delivery Method Oxygen Flow Rate Oxygen Delivery Method Room Air Oxygen Flow Rate 8 Const General: comfortable Resp Effort & Inspection: normal respiratory effort Objective Labs Result Diagrams: 11/20/21 22:08 11/20/21 17:45 Labs: Laboratory Results - last 24 hr 11/20/21 11/20/21 11/20/21 17:45 17:45 17:45 WBC 18.6 H RBC 3.21 L Hgb 10.4 L Hct 30.5 L MCV 95.1 MCH 32.4 MCHC 34.1 RDW 12.9 Plt Count 260 Neut % (Auto) 82.2 H Lymph % (Auto) 14.1 L [place] % (Auto) 3.6 Eos % (Auto) 0.0 L Baso % (Auto) 0.1 Neut # (Auto) 17899 H Lymph # (Auto) 2600 [place] # (Auto) 700 Eos # (Auto) 0 Baso # (Auto) 0 PT 12.7 INR 1.1 APTT 25 L Sodium 132 L Potassium 3.6 Chloride 95 L Carbon Dioxide 18 L BUN 24 H Creatinine 1.33 H Estimated GFR 39 L BUN/Creatinine Ratio 18.0 Glucose 311 H Lactate Calcium 8.9 Magnesium 1.9 Total Bilirubin 0.4 AST 22 ALT 25 Alkaline Phosphatase 48 Total Creatine Kinase 92 CK-MB (CK-2) TNP CK-MB (CK-2) Rel Index TNP Troponin I < 0.012 Total Protein 6.1 L Albumin 3.4 L Globulin 2.7 Albumin/Globulin Ratio 1.3 Lipase 44 Procalcitonin Urine Color Urine Appearance Urine pH Ur Specific [place] Urine Protein Urine Glucose (UA) Urine Ketones Urine Occult Blood Urine Nitrate Urine Bilirubin Urine Urobilinogen Ur Leukocyte Esterase Urine RBC Urine WBC Ur Squamous Epith Cells Urine Bacteria Ur Culture Indicated? Nasal Screen MRSA (PCR) SARS-CoV-2 (PCR) Blood Type Antibody Screen Crossmatch 11/20/21 11/20/21 11/20/21 17:45 17:45 17:45 WBC RBC Hgb Hct MCV MCH MCHC RDW Plt Count Neut % (Auto) Lymph % (Auto) [place] % (Auto) Eos % (Auto) Baso % (Auto) Neut # (Auto) Lymph # (Auto) [place] # (Auto) Eos # (Auto) Baso # (Auto) PT Cancelled INR Cancelled APTT Sodium Potassium Chloride Carbon Dioxide BUN Creatinine Estimated GFR BUN/Creatinine Ratio Glucose Lactate 8.7 H* Calcium Magnesium Total Bilirubin AST ALT Alkaline Phosphatase Total Creatine Kinase CK-MB (CK-2) CK-MB (CK-2) Rel Index Troponin I Total Protein Albumin Globulin Albumin/Globulin Ratio Lipase Procalcitonin 0.06 Urine Color Urine Appearance Urine pH Ur Specific [place] Urine Protein Urine Glucose (UA) Urine Ketones Urine Occult Blood Urine Nitrate Urine Bilirubin Urine Urobilinogen Ur Leukocyte Esterase Urine RBC Urine WBC Ur Squamous Epith Cells Urine Bacteria Ur Culture Indicated? Nasal Screen MRSA (PCR) SARS-CoV-2 (PCR) Blood Type Antibody Screen Crossmatch 11/20/21 11/20/21 11/20/21 18:02 18:02 19:47 WBC RBC Hgb Hct MCV MCH MCHC RDW Plt Count Neut % (Auto) Lymph % (Auto) [place] % (Auto) Eos % (Auto) Baso % (Auto) Neut # (Auto) Lymph # (Auto) [place] # (Auto) Eos # (Auto) Baso # (Auto) PT INR APTT Sodium Potassium Chloride Carbon Dioxide BUN Creatinine Estimated GFR BUN/Creatinine Ratio Glucose Lactate Calcium Magnesium Total Bilirubin AST ALT Alkaline Phosphatase Total Creatine Kinase CK-MB (CK-2) CK-MB (CK-2) Rel Index Troponin I Total Protein Albumin Globulin Albumin/Globulin Ratio Lipase Procalcitonin Urine Color Yellow Urine Appearance Clear Urine pH 6.5 Ur Specific [place] <=1.005 Urine Protein Trace H Urine Glucose (UA) Trace H Urine Ketones Negative Urine Occult Blood Negative Urine Nitrate Negative Urine Bilirubin Negative Urine Urobilinogen 0.2 Ur Leukocyte Esterase Negative Urine RBC 0-1/hpf Urine WBC 0-1/hpf Ur Squamous Epith Cells 0-1 /hpf Urine Bacteria None seen Ur Culture Indicated? Cult not indicated Nasal Screen MRSA (PCR) SARS-CoV-2 (PCR) Negative Blood Type O Positive Antibody Screen Negative Crossmatch See Detail 11/20/21 11/20/21 11/20/21 21:58 22:08 22:08 WBC 23.4 H RBC 3.72 L Hgb 11.6 L Hct 33.4 L MCV 89.7 D MCH 31.1 MCHC 34.6 RDW 15.3 H Plt Count 192 Neut % (Auto) 85.1 H Lymph % (Auto) 5.8 L [place] % (Auto) 9.0 Eos % (Auto) 0.0 L Baso % (Auto) 0.1 Neut # (Auto) H Lymph # (Auto) 1400 [place] # (Auto) 2100 H Eos # (Auto) 0 Baso # (Auto) 0 PT INR APTT Sodium Potassium Chloride Carbon Dioxide BUN Creatinine Estimated GFR BUN/Creatinine Ratio Glucose Lactate 6.6 H* Calcium Magnesium Total Bilirubin AST ALT Alkaline Phosphatase Total Creatine Kinase CK-MB (CK-2) CK-MB (CK-2) Rel Index Troponin I Total Protein Albumin Globulin Albumin/Globulin Ratio Lipase Procalcitonin Urine Color Urine Appearance Urine pH Ur Specific [place] Urine Protein Urine Glucose (UA) Urine Ketones Urine Occult Blood Urine Nitrate Urine Bilirubin Urine Urobilinogen Ur Leukocyte Esterase Urine RBC Urine WBC Ur Squamous Epith Cells Urine Bacteria Ur Culture Indicated? 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
[2021-11-21] VITALS (82 sets, daily range): BP systolic 89–138; BP diastolic 46–69; PULSE 82–109; RESP 11–35; TEMP 35.5–37.2; O2SAT 90–99
[2021-11-21] MEDS: ACETAMINOPHEN 325 MG TABLET 650 MG PO ×2 (01:18→11:40)
[2021-11-21] MEDS: DESMOPRESSIN IV (01:19)
[2021-11-21] MEDS: SODIUM CHLORIDE 0.9% IV (01:19)
[2021-11-21] MEDS: INSULIN LISPRO 100 UNIT/ML 3ML VIAL SUBCUT ×3 (04:57→17:45)
[2021-11-21 05:03] LABS: Hemoglobin 9.8 g/dL (12.0-16.0)
--- NOTE | 2021-11-21 05:03 | PC.NURSE ---
Pt arrived to floor at 0930 from PACU post op. On Levo at 4 mcg/min, which is now off and BPs WNL with MAP > 65. Pt A&Ox4, prior to coming to floor, on simple mask running at 8L but quickly transitioned to room air, where she is satting >92%,lung sounds are clear. Heart rate and rhythm are WNL. Pt has had 3 BMs since coming to ICU and a urine output of 265 cc. Pt received 2 units PRBC in OR prior to coming to ICU and is now on a sliding scale for blood sugars. Pt receiving maintenance fluids at 75 mL/hr. Pt has bruising on rt chest where mastectomy was performed, as well as a GABRIEL drain in same location. Tylenol scheduled, as well as PRN dilaudid and tramadol for pain. Pt afebrile. Received 1 dose of desmopressin. Pt is currently resting.
[2021-11-21 08:54] LABS: Add Manual Diff / Slide Review NO; Basophils Absolute Auto 0 /uL (0-100); Basophils Percent Auto 0.1 % (0-2); Eosinophils Absolute Auto 0 /uL (0-450); Hematocrit 29.6 % (36-46); Hemoglobin 10.3 g/dL (12.0-16.0); Lymphocytes Absolute Auto 2000 /uL (1100-4500); Lymphocytes Percent Auto 14.2 % (25-40); Mean Corpuscular HGB Conc 34.9 % (30-36); Mean Corpuscular Volume 88.6 fL (80-100); Monocytes Absolute Auto 1200 /uL (0-900); Monocytes Percent Auto 8.7 % (3-14); Neutrophils Absolute Auto 10800 /uL (1500-7000); Platelet Count 157 X10^3/uL (150-400); Red Blood Cell Count 3.34 X10^6/uL (4.0-5.2); Red Cell Distribution Width 16.2 % (11.6-14.8); White Blood Cell Count 14.1 X10^3/uL (4.5-11.0)
[2021-11-21 09:02] LABS: HEMOLYSIS < 15 (0-50); Potassium 3.8 mmol/L (3.4-5.1)
[2021-11-21 09:03] LABS: BUN Creatinine Ratio 24.4 (6-22); Blood Urea Nitrogen 29 mg/dL (7-17); Calcium 7.8 mg/dL (8.4-10.2); Carbon Dioxide 20 mmol/L (22-32); Chloride 99 mmol/L (98-107); Estimated Glomerular Filt Rate 45 mL/min (>60); Glucose 170 mg/dL (80-110); Sodium 131 mmol/L (137-145)
--- NOTE | 2021-11-21 10:22 | P.PN_ITS ---
Subjective Subjective Date Patient Seen: 11/21/21 Time Patient Seen: 10:22 Interval history: 86-year-old woman underwent a right mastectomy yesterday and had postoperative hemorrhage return to the operating room for evacuation of hematoma control bleeding. Overnight she was in the intensive care unit where she ended up receiving a total of 2 units of packed red blood cells and was on Levophed for several hours. Currently she is weaned off Levophed and feeling generally well. No chest pain. Exam Vital Signs (past 8 hours): - 11/21/21 02:30 11/21/21 02:30 11/21/21 02:45 Temperature 96.4 F L 96.4 F L Pulse Rate 86 87 Respiratory Rate 23 17 Blood Pressure 104/53 L Pulse Oximetry 94 90 L Oxygen Delivery Method 11/21/21 03:00 11/21/21 03:00 11/21/21 03:15 Temperature 96.4 F L Pulse Rate 95 H Respiratory Rate 29 H Blood Pressure 89/53 L 100/58 L Pulse Oximetry 90 L Oxygen Delivery Method 11/21/21 03:15 11/21/21 03:30 11/21/21 03:30 Temperature 96.4 F L 96.6 F L Pulse Rate 90 93 H Respiratory Rate 28 H 28 H Blood Pressure 95/50 L Pulse Oximetry 95 96 Oxygen Delivery Method 11/21/21 03:45 11/21/21 04:00 11/21/21 04:00 Temperature 96.6 F L 96.6 F L Pulse Rate 90 91 H Respiratory Rate 23 28 H Blood Pressure 99/52 L Pulse Oximetry 97 91 Oxygen Delivery Method 11/21/21 04:13 11/21/21 04:15 11/21/21 04:30 Temperature 96.6 F L Pulse Rate 90 Respiratory Rate 19 Blood Pressure 107/53 L Pulse Oximetry 90 L Oxygen Delivery Method Room Air 11/21/21 04:30 11/21/21 04:45 11/21/21 05:00 Temperature 96.6 F L 96.6 F L Pulse Rate 90 92 H Respiratory Rate 21 27 H Blood Pressure 116/56 L Pulse Oximetry 95 97 Oxygen Delivery Method 11/21/21 05:00 11/21/21 05:15 11/21/21 05:30 Temperature 96.8 F L 96.8 F L Pulse Rate 92 H 87 Respiratory Rate 19 19 Blood Pressure 116/54 L Pulse Oximetry 98 96 Oxygen Delivery Method 11/21/21 05:30 11/21/21 05:45 11/21/21 06:00 Temperature 97.0 F L 97.0 F L Pulse Rate 93 H 90 Respiratory Rate 19 18 Blood Pressure 115/58 L Pulse Oximetry 94 94 Oxygen Delivery Method 11/21/21 06:00 11/21/21 06:15 11/21/21 06:30 Temperature 97.0 F L 97.2 F L 97.2 F L Pulse Rate 92 H 88 89 Respiratory Rate 16 24 24 Blood Pressure Pulse Oximetry 94 95 99 Oxygen Delivery Method 11/21/21 06:45 11/21/21 07:00 11/21/21 07:00 Temperature 97.2 F L 97.2 F L Pulse Rate 87 87 Respiratory Rate 21 22 Blood Pressure 117/57 L Pulse Oximetry 96 97 Oxygen Delivery Method 11/21/21 07:15 11/21/21 07:30 11/21/21 07:45 Temperature 97.3 F L 97.3 F L 97.3 F L Pulse Rate 87 87 89 Respiratory Rate 24 21 22 Blood Pressure Pulse Oximetry 94 93 95 Oxygen Delivery Method 11/21/21 08:00 11/21/21 08:00 11/21/21 08:15 Temperature 97.5 F L 97.5 F L Pulse Rate 89 83 Respiratory Rate 23 23 Blood Pressure 122/58 L Pulse Oximetry 95 99 Oxygen Delivery Method Oxygen Delivery Method Room Air Oxygen Flow Rate 0 Narrative Exam Narrative: General adult woman alert oriented no acute distress Chest drain serosanguineous. Chest wall ecchymosis. Objective Labs Result Diagrams: 11/21/21 08:40 11/21/21 08:40 Labs: Laboratory Results - last 24 hr 11/20/21 11/20/21 11/20/21 17:45 17:45 17:45 WBC 18.6 H RBC 3.21 L Hgb 10.4 L Hct 30.5 L MCV 95.1 MCH 32.4 MCHC 34.1 RDW 12.9 Plt Count 260 Neut % (Auto) 82.2 H Lymph % (Auto) 14.1 L Ramsey % (Auto) 3.6 Eos % (Auto) 0.0 L Baso % (Auto) 0.1 Neut # (Auto) 16523 H Lymph # (Auto) 2600 Ramsey # (Auto) 700 Eos # (Auto) 0 Baso # (Auto) 0 PT 12.7 INR 1.1 APTT 25 L Sodium 132 L Potassium 3.6 Chloride 95 L Carbon Dioxide 18 L BUN 24 H Creatinine 1.33 H Estimated GFR 39 L BUN/Creatinine Ratio 18.0 Glucose 311 H Lactate Calcium 8.9 Magnesium 1.9 Total Bilirubin 0.4 AST 22 ALT 25 Alkaline Phosphatase 48 Total Creatine Kinase 92 CK-MB (CK-2) TNP CK-MB (CK-2) Rel Index TNP Troponin I < 0.012 Total Protein 6.1 L Albumin 3.4 L Globulin 2.7 Albumin/Globulin Ratio 1.3 Lipase 44 Procalcitonin Urine Color Urine Appearance Urine pH Ur Specific [place] Urine Protein Urine Glucose (UA) Urine Ketones Urine Occult Blood Urine Nitrate Urine Bilirubin Urine Urobilinogen Ur Leukocyte Esterase Urine RBC Urine WBC Ur Squamous Epith Cells Urine Bacteria Ur Culture Indicated? Nasal Screen MRSA (PCR) SARS-CoV-2 (PCR) Blood Type Antibody Screen Crossmatch 11/20/21 11/20/21 11/20/21 17:45 17:45 17:45 WBC RBC Hgb Hct MCV MCH MCHC RDW Plt Count Neut % (Auto) Lymph % (Auto) Ramsey % (Auto) Eos % (Auto) Baso % (Auto) Neut # (Auto) Lymph # (Auto) Ramsey # (Auto) Eos # (Auto) Baso # (Auto) PT Cancelled INR Cancelled APTT Sodium Potassium Chloride Carbon Dioxide BUN Creatinine Estimated GFR BUN/Creatinine Ratio Glucose Lactate 8.7 H* Calcium Magnesium Total Bilirubin AST ALT Alkaline Phosphatase Total Creatine Kinase CK-MB (CK-2) CK-MB (CK-2) Rel Index Troponin I Total Protein Albumin Globulin Albumin/Globulin Ratio Lipase Procalcitonin 0.06 Urine Color Urine Appearance Urine pH Ur Specific [place] Urine Protein Urine Glucose (UA) Urine Ketones Urine Occult Blood Urine Nitrate Urine Bilirubin Urine Urobilinogen Ur Leukocyte Esterase Urine RBC Urine WBC Ur Squamous Epith Cells Urine Bacteria Ur Culture Indicated? Nasal Screen MRSA (PCR) SARS-CoV-2 (PCR) Blood Type Antibody Screen Crossmatch 11/20/21 11/20/21 11/20/21 18:02 18:02 19:47 WBC RBC Hgb Hct MCV MCH MCHC RDW Plt Count Neut % (Auto) Lymph % (Auto) Ramsey % (Auto) Eos % (Auto) Baso % (Auto) Neut # (Auto) Lymph # (Auto) Ramsey # (Auto) Eos # (Auto) Baso # (Auto) PT INR APTT Sodium Potassium Chloride Carbon Dioxide BUN Creatinine Estimated GFR BUN/Creatinine Ratio Glucose Lactate Calcium Magnesium Total Bilirubin AST ALT Alkaline Phosphatase Total Creatine Kinase CK-MB (CK-2) CK-MB (CK-2) Rel Index Troponin I Total Protein Albumin Globulin Albumin/Globulin Ratio Lipase Procalcitonin Urine Color Yellow Urine Appearance Clear Urine pH 6.5 Ur Specific [place] <=1.005 Urine Protein Trace H Urine Glucose (UA) Trace H Urine Ketones Negative Urine Occult Blood Negative Urine Nitrate Negative Urine Bilirubin Negative Urine Urobilinogen 0.2 Ur Leukocyte Esterase Negative Urine RBC 0-1/hpf Urine WBC 0-1/hpf Ur Squamous Epith Cells 0-1 /hpf Urine Bacteria None seen Ur Culture Indicated? Cult not indicated Nasal Screen MRSA (PCR) SARS-CoV-2 (PCR) Negative Blood Type O Positive Antibody Screen Negative Crossmatch See Detail 11/20/21 11/20/21 11/20/21 21:58 22:08 22:08 WBC 23.4 H RBC 3.72 L Hgb 11.6 L Hct 33.4 L MCV 89.7 D MCH 31.1 MCHC 34.6 RDW 15.3 H Plt Count 192 Neut % (Auto) 85.1 H Lymph % (Auto) 5.8 L Ramsey % (Auto) 9.0 Eos % (Auto) 0.0 L Baso % (Auto) 0.1 Neut # (Auto) 93798 H Lymph # (Auto) 1400 Ramsey # (Auto) 2100 H Eos # (Auto) 0 Baso # (Auto) 0 PT INR APTT Sodium Potassium Chloride Carbon Dioxide BUN Creatinine Estimated GFR BUN/Creatinine Ratio Glucose Lactate 6.6 H* Calcium Magnesium Total Bilirubin AST ALT Alkaline Phosphatase Total Creatine Kinase CK-MB (CK-2) CK-MB (CK-2) Rel Index Troponin I Total Protein Albumin Globulin Albumin/Globulin Ratio Lipase Procalcitonin Urine Color Urine Appearance Urine pH Ur Specific [place] Urine Protein Urine Glucose (UA) Urine Ketones Urine Occult Blood Urine Nitrate Urine Bilirubin Urine Urobilinogen Ur Leukocyte Esterase Urine RBC Urine WBC Ur Squamous Epith Cells Urine Bacteria Ur Culture Indicated? Nasal Screen MRSA (PCR) Negative for mrsa SARS-CoV-2 (PCR) Blood Type Antibody Screen Crossmatch 11/21/21 11/21/21 11/21/21 04:54 08:40 08:40 WBC 14.1 H RBC 3.34 L Hgb 9.8 L 10.3 L Hct 29.6 L MCV 88.6 MCH 31.0 MCHC 34.9 RDW 16.2 H Plt Count 157 Neut % (Auto) 77.0 H Lymph % (Auto) 14.2 L Ramsey % (Auto) 8.7 Eos % (Auto) 0.0 L Baso % (Auto) 0.1 Neut # (Auto) 46854 H Lymph # (Auto) 2000 Ramsey # (Auto) 1200 H Eos # (Auto) 0 Baso # (Auto) 0 PT INR APTT Sodium 131 L Potassium 3.8 Chloride 99 Carbon Dioxide 20 L BUN 29 H Creatinine 1.19 H Estimated GFR 45 L BUN/Creatinine Ratio 24.4 H Glucose 170 H D Lactate Calcium 7.8 L Magnesium Total Bilirubin AST ALT Alkaline Phosphatase Total Creatine Kinase CK-MB (CK-2) CK-MB (CK-2) Rel Index Troponin I Total Protein Albumin Globulin Albumin/Globulin Ratio Lipase Procalcitonin Urine Color Urine Appearance Urine pH Ur Specific [place] Urine Protein Urine Glucose (UA) Urine Ketones Urine Occult Blood Urine Nitrate Urine Bilirubin Urine Urobilinogen Ur Leukocyte Esterase Urine RBC Urine WBC Ur Squamous Epith Cells Urine Bacteria Ur Culture Indicated? Nasal Screen MRSA (PCR) SARS-CoV-2 (PCR) Blood Type Antibody Screen Crossmatch [facility] Medical History Elevated cholesterol Hypertension Lipoma of breast No significant medical problems Surgical History History of lumpectomy of right breast (10/24/21) Social History household members: spouse Smoking Status: Former smoker alcohol intake: never Assessment & Plan Post-op Postoperative Procedures: Procedures Operation Date: 11/20/21 19:45 Actual Procedure Side Surgeon p S/p mastectomy bleeding control Jr Lyn MD Postoperative status narrative: 86-year-old woman postoperative day 1 status post right mastectomy for DCIS he had a postoperative hemorrhage. She she return to the operating room last night for evacuation of hematoma and control of bleeding. On take back there was was no active bleeding there was a large intramuscular hematoma within the pectoralis which I suspect was from the nerve block. she is hemodynamically stable and there is no evidence of ongoing bleeding. - Regular diet - Physical therapy eval - SCDs hold chemical prophylaxis - floor care - central line removed - continue Alonzo catheter for this morning -
--- NOTE | 2021-11-21 11:25 | CM.DANOTE ---
Initial DCP Assessment Note Pt is a 86 yo female, resident [facility], discharged 9.22 after undergoing a right mastectomy, returns that evening after a syncopal episode at home and found to have a hematoma within the right mastectomy wound PCP: Esha Wheat Payer: VICTOR MANUEL/ [employer] Reviewed chart, pt discussed in multidisciplinary rounds this morning. PT/OT pending today Attempted assessment at bedside and RN Kaity shares that patient is exhausted and prefers patient be allowed to sleep. Patient expected to return home w/spouse upon discharge. PT/OT requested by surgery. Plan: Discharge home w/spouse expected over the next 24-48 hrs; r/o need for HH closer to DC and after therapy evaluations KARLI Dowd Discharge Planning/Care Management CM Discharge Assessment Start: 11/21/21 10:53 Freq: Status: Active Protocol: Document 11/21/21 10:53 ANIKA (Rec: 11/21/21 11:24 ANIKA [id number]) Discharge Planning Assessment Assigned Barrel Coater KARLI Naylor DPOA/Assigned Designee Name Rashid Leepkins, spouse Contact Information [phone] Advance Directives? Yes Advance Directives on File Yes History Provided By Patient,Medical Record Has Patient been admitted in last 30 Yes days? Comment Discharged 9. and returned after a syncopal episode at home and found to have hematoma within the right mastectomy wound Prior Living Arrangements House Household Members spouse Type of transporation used prior to Drives own vehicle admit Independent with ADL's Yes Is patient alert and oriented? Yes Barriers to Discharge No Comment Home w/spouse, r/o need for HH upon DC Discharge Plan Home Transportation Arrangement Spouse
[2021-11-21] MEDS: CEFAZOLIN 2 GM/100 ML PREMIX 100 ML IV ×2 (11:40→17:41)
--- NOTE | 2021-11-21 12:15 | PT.IIE ---
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) Acute kidney failure, unspecified (11/20/21) Other shock (11/20/21) Hyperglycemia, unspecified (11/20/21) Surgery Performed Operation Date: 11/20/21 19:45 Actual Procedures p S/p mastectomy bleeding control - Jr Lyn MD Surgical History (Last Reviewed 11/20/21 @ 23:42 by Oscar Werner MD) History of lumpectomy of right breast (10/24/21) Medical History (Last Reviewed 11/20/21 @ 23:42 by Oscar Werner MD) Elevated cholesterol Hypertension Lipoma of breast No significant medical problems Physical Therapy Inpatient Evaluation/Re-Eval M1 PT/OT-IP Prior Functional Status Start: 11/21/21 14:29 Freq: NEEDED Status: Active Protocol: Document 11/21/21 12:15 AB (Rec: 11/21/21 14:38 AB [email or web address]) Medical Review Prior Functional Status Medical History Reviewed Yes Communication able to make needs known Mobility and Gait pt stated that she is independent with all mobilities and ambulation without AD Social History Household Members spouse Living Arrangements House Number of Floors (Floors) One Floor Number of Stairs To Enter/Railing? 1 step to enter Home Environment Standard Height Toilet,Tub/ Shower Home Equipment Front Wheel Walker,Straight Cane,Hand Held Shower,Grab Bars In Shower Additional Social History Comment daughter will be staying for 1 week to assist pt M2 PT-IP Current Condition Start: 11/21/21 14:29 Freq: NEEDED Status: Active Protocol: Document 11/21/21 12:15 AB (Rec: 11/21/21 14:38 AB [email or web address]) Physical Therapy Current Condition Current Condition Evaluation Date 11/21/21 Treatment Diagnosis s/p R mastectomy evacuation of hematoma; difficulty in walking Onset Date 11/20/21 M3 PT-IP Subjective Start: 11/21/21 14:29 Freq: NEEDED Status: Active Protocol: Document 11/21/21 12:15 AB (Rec: 11/21/21 14:38 AB [email or web address]) Subjective Physical Therapy Visit Type Type Initial Evaluation Visit Start Time 12:15 Visit Stop Time 12:45 Total Visit Minutes 30 Number of RESEARCH GEOLOGIST Visits 0 Physical Therapy Visit Comments Patient Comments pt is agreeable to do PT M4 PT-IP Mobility and Gait Start: 11/21/21 14:29 Freq: NEEDED Status: Active Protocol: Document 11/21/21 12:15 AB (Rec: 11/21/21 14:38 AB [id number]) PT-Bed Mobility Assessment Rolling Type of Rolling Log Rolling Level of Assist Standby Assistance Supine to Sit Supine to Sit Maximum Assistance,1 Person Assistance,Bedrails PT-Transfer Assessment Sit to and From Stand Sit to and from Stand Maximum Assistance,1 Person Assistance,Use of Upper Extremities Equipment Transfer Assistive Device Gait Belt,Front Wheeled Walker Orthotic/Prosthetic Devices or Brace: No Transfers Transfer Destination Chair Transfer Technique Stand Step Pivot Transfer Ability Level of Assist Maximum Assistance,1 Person Assistance,Use of Upper Extremities Comments Mobility Comments BP in supine: 109/52. pt completed supine to sit max A and max cues with 3 attempts to be able to complete task. HOB also elevated to assist. pt required min A for sitting balance on EOB. c/o dizziness . BP: 103/50. nurse came in room and informed of dizziness and low BP. pt able to sit on EOB for 2 more minutes. BP checked: 99/51 but dizzines leveled out. agreed to get out of bed. completed sit to stand max A and step transfer to chair max A and max cues. pt very unsteady and shaky. c/o increase dizziness after transfers. positioned pt on the chair with LE elevated. BP checked: 93/46. nurse in room and aware. call light and table placed within reach. Gait Assessment Comments Gait Comments unable at this time PT-Balance Assessment Sitting Balance and Reactions Static Sitting Balance Ability Fair Dynamic Sitting Balance Ability Fair Standing Balance and Reactions Static Standing Balance Ability Poor Dynamic Standing Balance Ability Poor Device Used FWW M5 PT-IP Objective Assessments Start: 11/21/21 14:29 Freq: NEEDED Status: Active Protocol: Document 11/21/21 12:15 AB (Rec: 11/21/21 14:38 AB [id number]) Orientation Orientation/Cognition Level of Alertness Alert Orientation Name,Place,Situation Language Function Ability No Deficits Noted Safety Awareness Decreased Safety Awareness Memory Description No Deficits Noted Gross Range of Motion Lower Extremity ROM Assessment Within Functional Limits Strength Comments Strength Comments LLE: 4/5 RLE 4-/5 Coordination Assessment Gross Coordination Gross Coordination WNL Sensation Assessment Sensation Gross Sensation Right LE Impaired,Left LE Impaired Sensation Description Numbness Comments Sensation Comments c/o numbness on all toes Muscle Tone Muscle Tone WNL Yes M6 PT-IP Treatment Start: 11/21/21 14:29 Freq: NEEDED Status: Active Protocol: Document 11/21/21 12:15 AB (Rec: 11/21/21 14:38 AB [id number]) Physical Therapy Treatment Education Education Provided Safety M7 PT-IP Assessment and Plan Start: 11/21/21 14:29 Freq: NEEDED Status: Active Protocol: Document 11/21/21 12:15 AB (Rec: 11/21/21 14:38 AB [email or web address]) PT Summary Assessment and Plan Potential Rehabilitation Potential Fair Status of Condition at Evaluation Evolving Summary Impairments Pain,ROM,Strength,Balance, Coordination,Sensation,Tone, Cognition,Bed Mobility, Transfers,Gait,Activity Tolerance Assessment Summary pt requiring max A with mobility and unable to tolerate much activity with c/ o dizziness and decrease in BP . pt unable to ambulate at this time. pt will require SNF rehab to improve strength and function. Goals Bed Mobility Goal Standby Assistance Transfer Goal Standby Assistance,Front Wheeled Walker Gait Goal Standby Assistance,Front Wheel Walker Gait Distance 50 Other Goals improve ambulation using FWW 150 ft SBA uup/down 1 step using FWW SBA Days to Meet Goals 10 Frequency of Treatment Frequency Of Treatment Once a Day Treatment Plan Physical Therapy Treatment Plan Bed Mobility Training,Transfer Training,Gait Training, Therapeutic Exercise,Balance Retraining,Post Op Education, Discharge Planning,Hot or Cold Pack,Neuromuscular Re-ed, Coordination Retraining,Manual Therapy Precautions Other Precautions BP; falls Recommendations To Nursing Amount of Assist Needed 1 Person Assist Discharge Recommendations PT Discharge Recommendations SNF Rehab Transportation Needs at Discharge Wheelchair/Cabulance
--- NOTE | 2021-11-21 12:59 | CM.DPC ---
Addendum entered by Jessie Dodge R.N. 11/21/21 14:28: DCP Cont: Sue contacted [facility] to inform her of acceptance of pt. Sue can accept the patient at [facility] on Wednesday (11/23). ADJ Original Note: DCP Cont: DCP was approached by RN and was stated that PT is recommending SNF. RN had call out to Dr. Lyn to make him aware. Dr. Lyn OK with this plan. DCP spoke with pt and provided her with medicare choice list. Ipad shown with approved facilities and pt asked DCP to send referral to [facility]. DCP spoke to Sue @ [facility] and she stated she would look into pt case. Pt would be eligible for SNF admission on Thursday 11/23 per medicare 3 night inpatient stay. DCP to continue to follow. Jessie Dodge RN/ULI
[2021-11-21] MEDS: SODIUM CHLORIDE 0.9% 1,000 ML 1000 ML IV (20:00)
--- NOTE | 2021-11-21 21:08 | PC.NURSE ---
Addendum entered by Loren Baum R.N. 11/22/21 06:59: As preceptor, I agree with Nesha RNs assessment, intervention, evaluation, and documentation. Original Note: Upon arriving on shift, pt was shaking and stating that she thinks she may be going into anaphylaxis. Vitals were unremarkable. Stated that she does get anxious when she is in doctors offices. Dr. Arguello was contacted about the status of that pt and order PO and IV Ativan PRN for patient's anxiety.
[2021-11-21] MEDS: LORazepam 0.5 MG TABLET PO (22:13)
[2021-11-22] VITALS (50 sets, daily range): BP systolic 105–135; BP diastolic 53–73; PULSE 86–114; RESP 13–31; TEMP 36.6–36.9; O2SAT 90–100
[2021-11-22] MEDS: ACETAMINOPHEN 325 MG TABLET 650 MG PO ×3 (00:05→11:08)
[2021-11-22] MEDS: CEFAZOLIN 2 GM/100 ML PREMIX 100 ML IV ×2 (02:23→11:12)
[2021-11-22] MEDS: LORazepam 0.5 MG TABLET PO (06:17)
[2021-11-22] MEDS: SODIUM CHLORIDE 0.9% FLUSH 10 ML IV ×2 (08:18→20:54)
[2021-11-22] MEDS: INSULIN LISPRO 100 UNIT/ML 3ML VIAL SUBCUT (08:33)
[2021-11-22 09:15] LABS: BUN Creatinine Ratio 28.6 (6-22); Blood Urea Nitrogen 26 mg/dL (7-17); Calcium 7.6 mg/dL (8.4-10.2); Carbon Dioxide 23 mmol/L (22-32); Chloride 96 mmol/L (98-107); Estimated Glomerular Filt Rate > 60 mL/min (>60); Glucose 123 mg/dL (80-110); HEMOLYSIS < 15 (0-50); Potassium 3.3 mmol/L (3.4-5.1); Sodium 124 mmol/L (137-145)
--- NOTE | 2021-11-22 10:38 | PT.IPTN ---
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) Acute kidney failure, unspecified (11/20/21) Other shock (11/20/21) Hyperglycemia, unspecified (11/20/21) Surgery Performed Operation Date: 11/20/21 19:45 Actual Procedures p S/p mastectomy bleeding control - Jr Lyn MD Physical Therapy Treatment Note M2 PT-IP Current Condition Start: 11/21/21 14:29 Freq: NEEDED Status: Active Protocol: Document 11/21/21 12:15 AB (Rec: 11/21/21 14:38 AB [email or web address]) Physical Therapy Current Condition Current Condition Evaluation Date 11/21/21 Treatment Diagnosis s/p R mastectomy evacuation of hematoma; difficulty in walking Onset Date 11/20/21 M3 PT-IP Subjective Start: 11/21/21 14:29 Freq: NEEDED Status: Active Protocol: Document 11/22/21 10:38 AB (Rec: 11/22/21 12:56 AB [email or web address]) Subjective Physical Therapy Visit Type Type Treatment Note Visit Start Time 10:38 Visit Stop Time 11:03 Total Visit Minutes 25 Number of MILLWRIGHT SUPERVISOR Visits 0 Physical Therapy Visit Comments Patient Comments agreeable to do PT Therapy Pain Assessment Pain Present Pain Present Denied Pain M4 PT-IP Mobility and Gait Start: 11/21/21 14:29 Freq: NEEDED Status: Active Protocol: Document 11/22/21 10:38 AB (Rec: 11/22/21 12:56 AB [email or web address]) PT-Bed Mobility Assessment Supine to Sit Supine to Sit Maximum Assistance,Head of Bed Elevated PT-Transfer Assessment Sit to and From Stand Sit to and from Stand Maximum Assistance,2 Person Assistance,Use of Upper Extremities Equipment Transfer Assistive Device Gait Belt,Front Wheeled Walker Orthotic/Prosthetic Devices or Brace: No Transfers Transfer Destination Chair Transfer Technique Stand Step Pivot Transfer Ability Level of Assist Maximum Assistance,2 Person Assistance,Use of Upper Extremities Comments Mobility Comments BP in supine: 134/64. O2 sat: 94%pt completed supine to sit max A and max cues with HOB elevated and pt used bed rail. CGA to sitting on EOB. BP in sittin/60. initialy dizziness but pt stated that it went away. able to sit on EOB for ~ 2 more minutes. BP checked again: 123/61. pt completed sit to stand max A x 2 and max cues and step transfer to chair using FWW max A x 2 and max cues. positioned pt on the chair. BP after transfer, sitting on chair: 109/53. O2: 92% but increased to 96% at rest. call light and table placed within reach. informed nurse regarding BP. M5 PT-IP Objective Assessments Start: 11/21/21 14:29 Freq: NEEDED Status: Active Protocol: Document 11/21/21 12:15 AB (Rec: 11/21/21 14:38 AB [email or web address]) Orientation Orientation/Cognition Level of Alertness Alert Orientation Name,Place,Situation Language Function Ability No Deficits Noted Safety Awareness Decreased Safety Awareness Memory Description No Deficits Noted Gross Range of Motion Lower Extremity ROM Assessment Within Functional Limits Strength Comments Strength Comments LLE: 4/5 RLE 4-/5 Coordination Assessment Gross Coordination Gross Coordination WNL Sensation Assessment Sensation Gross Sensation Right LE Impaired,Left LE Impaired Sensation Description Numbness Comments Sensation Comments c/o numbness on all toes Muscle Tone Muscle Tone WNL Yes M6 PT-IP Treatment Start: 11/21/21 14:29 Freq: NEEDED Status: Active Protocol: Document 11/22/21 10:38 AB (Rec: 11/22/21 12:56 AB [id number]) Physical Therapy Treatment Education Education Provided Safety M7 PT-IP Assessment and Plan Start: 11/21/21 14:29 Freq: NEEDED Status: Active Protocol: Document 11/22/21 10:38 AB (Rec: 11/22/21 12:56 AB [email or web address]) PT Summary Assessment and Plan Potential Rehabilitation Potential Fair Summary Impairments Pain,ROM,Strength,Balance, Coordination,Sensation,Tone, Cognition,Bed Mobility, Transfers,Gait,Activity Tolerance Progress Towards Goals Slow Progress due to Medical Issues,Slow Progress due to Activity Tolerance Assessment Summary pt continues to require max A x 2 with mobility and has decrease activity tolerance. pt will require SNF rehab to improve strength and function. Goals Bed Mobility Goal Standby Assistance Transfer Goal Standby Assistance,Front Wheeled Walker Gait Goal Standby Assistance,Front Wheel Walker Gait Distance 50 Other Goals improve ambulation using FWW 150 ft SBA uup/down 1 step using FWW SBA Days to Meet Goals 10 Frequency of Treatment Frequency Of Treatment Once a Day Treatment Plan Physical Therapy Treatment Plan Bed Mobility Training,Transfer Training,Gait Training, Therapeutic Exercise,Balance Retraining,Post Op Education, Discharge Planning,Hot or Cold Pack,Neuromuscular Re-ed, Coordination Retraining,Manual Therapy Precautions Other Precautions BP; falls Recommendations To Nursing Amount of Assist Needed 2 Person Assist Discharge Recommendations PT Discharge Recommendations SNF Rehab Transportation Needs at Discharge Wheelchair/Cabulance
--- NOTE | 2021-11-22 11:37 | PM.PNPO.1 ---
Subjective Subjective Interval history: No complaints. Feeling anxious, but medication helped. Pain controlled. Not much out of bed yet. Hasent had a BM for a few days. Exam Vital Signs (past 8 hours): - 11/22/21 04:00 11/22/21 04:00 11/22/21 04:04 Temperature 97.8 F Pulse Rate 101 H 103 H Respiratory Rate 20 21 Blood Pressure 132/60 Pulse Oximetry 90 L 94 Oxygen Delivery Method Oxygen Flow Rate 11/22/21 05:00 11/22/21 05:00 11/22/21 05:18 Temperature Pulse Rate 99 H 92 H Respiratory Rate 21 16 Blood Pressure 135/62 Pulse Oximetry 95 94 Oxygen Delivery Method Oxygen Flow Rate 11/22/21 07:00 11/22/21 07:00 11/22/21 07:59 Temperature 97.9 F 97.9 F Pulse Rate 93 H 93 H Respiratory Rate 17 17 Blood Pressure 118/57 L 118/57 L Pulse Oximetry 90 L 93 Oxygen Delivery Method Oxygen Flow Rate 0 11/22/21 07:00 Temperature Pulse Rate Respiratory Rate Blood Pressure Pulse Oximetry Oxygen Delivery Method Room Air Oxygen Flow Rate Oxygen Delivery Method Room Air Oxygen Flow Rate 0 Narrative Exam Narrative: Awake alert oriented in No acute distress. abdomen soft , non tender,, breathing non labored wound clean dry dressings in place. drain in place. serosang output. Objective Labs Result Diagrams: 11/21/21 08:40 11/22/21 08:41 Labs: Laboratory Results - last 24 hr 11/20/21 11/22/21 18:02 08:41 Sodium 124 L Potassium 3.3 L Chloride 96 L Carbon Dioxide 23 BUN 26 H Creatinine 0.91 Estimated GFR > 60 BUN/Creatinine Ratio 28.6 H Glucose 123 H Calcium 7.6 L Blood Type O Positive Antibody Screen Negative Crossmatch See Detail [facility] Medical History Elevated cholesterol Hypertension Lipoma of breast No significant medical problems Surgical History History of lumpectomy of right breast (10/24/21) Social History household members: spouse Smoking Status: Former smoker alcohol intake: never Assessment & Plan Post-op Postoperative Procedures: Procedures Operation Date: 11/20/21 19:45 Actual Procedure Side Surgeon p S/p mastectomy bleeding control Jr Lyn MD Postoperative status: doing well Postoperative status narrative: continue regular diet. holding SCD ppx. no sign of ongoing bleeding. pending PT Eval and rehab placement. acute kidney injury: monitoring. holding advil. monitor urine output and keep hydrated. hypokalemia, hyponatremia - acute, asymptomatic.
[2021-11-22 12:05] LABS: Add Manual Diff / Slide Review NO; Basophils Absolute Auto 100 /uL (0-100); Basophils Percent Auto 0.4 % (0-2); Eosinophils Absolute Auto 100 /uL (0-450); Eosinophils Percent Auto 1.1 % (2-4); Hematocrit 22.4 % (36-46); Hemoglobin 7.9 g/dL (12.0-16.0); Lymphocytes Absolute Auto 2500 /uL (1100-4500); Lymphocytes Percent Auto 18.8 % (25-40); Mean Corpuscular HGB Conc 35.4 % (30-36); Mean Corpuscular Hemoglobin 31.1 PG (26-34); Mean Corpuscular Volume 88.1 fL (80-100); Monocytes Absolute Auto 1100 /uL (0-900); Monocytes Percent Auto 8.2 % (3-14); Neutrophils Absolute Auto 9500 /uL (1500-7000); Neutrophils Percent Auto 71.5 % (50-75); Platelet Count 94 X10^3/uL (150-400); Red Blood Cell Count 2.55 X10^6/uL (4.0-5.2); Red Cell Distribution Width 15.9 % (11.6-14.8); White Blood Cell Count 13.3 X10^3/uL (4.5-11.0)
[2021-11-22] MEDS: AMLODIPINE 5 MG TABLET PO (13:14)
[2021-11-22] MEDS: LOSARTAN 50 MG TABLET 100 MG PO (13:15)
[2021-11-22] MEDS: POTASSIUM CHLORIDE 20 MEQ TAB 40 MEQ PO (13:16)
[2021-11-22] MEDS: SODIUM CHLORIDE 1,000 MG TABLET 1000 MG PO (15:02)
[2021-11-22] MEDS: CALCIUM CARBONATE 500 MG TAB 1000 MG PO (16:34)
[2021-11-22] MEDS: OXYCODONE IR 5 MG TABLET PO (18:02)
--- NOTE | 2021-11-22 19:14 | PC.NURSE ---
Pt AAOx4, LUTHRE, FC, OOB to chair today x2 assist. No c/o pain. VSS. Afebrile. Room air, no desats. Regular diet. 1 BM today. Alonzo in place w/ AUOP. GABRIEL drain with 40cc sanguineous output. Hgb 7.9 from 10.3, Dr. Arguello made aware. Na 124, NaCl tablet given, refer to MAR.
[2021-11-22] MEDS: ASPIRIN 81 MG CHEW TAB PO (20:53)
[2021-11-22] MEDS: ATORVASTATIN 20 MG TABLET 10 MG PO (20:53)
[2021-11-22] MEDS: DOCUSATE 100 MG CAPSULE PO (20:54)
[2021-11-22] MEDS: DOXYCYCLINE HYCLATE 100 MG TABLET PO (20:54)
[2021-11-23 08:53] VITALS: BP 141/63; PULSE 86; RESP 18; TEMP 36.8; O2SAT 95
[2021-11-23] MEDS: DOCUSATE 100 MG CAPSULE PO (09:49)
[2021-11-23] MEDS: DOXYCYCLINE HYCLATE 100 MG TABLET PO (09:49)
[2021-11-23] MEDS: SODIUM CHLORIDE 0.9% FLUSH 10 ML IV (09:49)
[2021-11-23] MEDS: SODIUM CHLORIDE 1,000 MG TABLET 1000 MG PO (09:49)
[2021-11-23] MEDS: OXYCODONE IR 5 MG TABLET PO (10:20)
[2021-11-23] MEDS: CALCIUM CARBONATE 500 MG TAB 1000 MG PO (10:27)
[2021-11-23 10:31] VITALS: BP 142/66; PULSE 96; RESP 28; O2SAT 97
[2021-11-23 11:08] LABS: Add Manual Diff / Slide Review NO; Basophils Absolute Auto 0 /uL (0-100); Basophils Percent Auto 0.4 % (0-2); Eosinophils Absolute Auto 200 /uL (0-450); Eosinophils Percent Auto 1.5 % (2-4); Hematocrit 21.8 % (36-46); Hemoglobin 7.8 g/dL (12.0-16.0); Lymphocytes Absolute Auto 2400 /uL (1100-4500); Lymphocytes Percent Auto 20.6 % (25-40); Mean Corpuscular HGB Conc 35.6 % (30-36); Mean Corpuscular Hemoglobin 31.4 PG (26-34); Mean Corpuscular Volume 88.2 fL (80-100); Monocytes Absolute Auto 800 /uL (0-900); Monocytes Percent Auto 6.9 % (3-14); Neutrophils Absolute Auto 8200 /uL (1500-7000); Neutrophils Percent Auto 70.6 % (50-75); Platelet Count 149 X10^3/uL (150-400); Red Blood Cell Count 2.47 X10^6/uL (4.0-5.2); Red Cell Distribution Width 15.7 % (11.6-14.8); White Blood Cell Count 11.6 X10^3/uL (4.5-11.0)
[2021-11-23 11:20] LABS: BUN Creatinine Ratio 21.1 (6-22); Blood Urea Nitrogen 15 mg/dL (7-17); Carbon Dioxide 23 mmol/L (22-32); Chloride 94 mmol/L (98-107); Estimated Glomerular Filt Rate > 60 mL/min (>60); Glucose 111 mg/dL (80-110); HEMOLYSIS < 15 (0-50); Sodium 123 mmol/L (137-145)
--- NOTE | 2021-11-23 12:11 | PM.DS.1 ---
History of Present Illness History of Present Illness Date Patient Seen: 11/23/21 Time Patient Seen: 11:00 Chief complaint: post op (11/20/21) syncope Narrative: time Khadijah in 86-year-old female who underwent right mastectomy on 11/20 2021 the operative sites were hemostatic and, she had a pectoralis block postoperatively. She returned to the emergency room later that day with syncope and found to have hemorrhagic shock. Also known as acute blood loss anemia. She was taken back to the operating room and the wound was exposed inspected she also was transfused and cared for in the intensive care unit. The next day she was able to be extubated and said. Her pain was controlled her hemoglobin was stable and she was hemodynamically stable for the remainder of her hospitalization. On 11/23/2021 she had been doing well and had been hemodynamically stable since postoperatively. There was a bed available for her at a correction facility. She had had acute kidney injury which has improved with a creatinine upon discharge or 0.9. She had some hip hypokalemia that was treated. She is hyponatremic currently, but asymptomatic. She has been started on some oral salt tabs. But I think this can be followed and managed at a correction facility. Discharge Providers Provider Date of admission: 11/20/21 19:27 Discharge Date: 11/23/21 Primary care physician: Esha Wheat MD Consults: 11/21/21 09:01 Consult to Physical Therapy Evaluate & Treat Comment: Physician Instructions: Evaluate and Treat Discharge provider: Savita Arguello MD Exam Vital Signs (past 8 hours): - 11/23/21 08:53 11/23/21 10:31 11/23/21 09:50 Temperature 98.2 F Pulse Rate 86 96 H Respiratory Rate 18 28 H Blood Pressure 141/63 H 142/66 H Pulse Oximetry 95 97 Oxygen Delivery Method Room Air Oxygen Flow Rate 0 0 Oxygen Delivery Method Room Air Oxygen Flow Rate 0 Narrative Exam Narrative: Patient is awake alert oriented and in no acute distress. The wound is clean dry with fallon in place. The drain is in place in the right axilla and draining. The drainage is sanguinous. There are ecchymoses surrounding the wound, which are stable in size. Objective Labs Result Diagrams: 11/23/21 10:55 11/23/21 10:55 Labs: Laboratory Results - last 24 hr 11/23/21 11/23/21 10:55 10:55 WBC 11.6 H RBC 2.47 L Hgb 7.8 L Hct 21.8 L MCV 88.2 MCH 31.4 MCHC 35.6 RDW 15.7 H Plt Count 149 L Neut % (Auto) 70.6 Lymph % (Auto) 20.6 L Houghton % (Auto) 6.9 Eos % (Auto) 1.5 L Baso % (Auto) 0.4 Neut # (Auto) 8200 H Lymph # (Auto) 2400 [place]oughton # (Auto) 800 Eos # (Auto) 200 Baso # (Auto) 0 Sodium 123 L Potassium 4.0 Chloride 94 L Carbon Dioxide 23 BUN 15 Creatinine 0.71 Estimated GFR > 60 BUN/Creatinine Ratio 21.1 Glucose 111 H Calcium 8.0 L PFSH Medical History Elevated cholesterol Hypertension Lipoma of breast No significant medical problems Surgical History History of lumpectomy of right breast (10/24/21) Social History household members: spouse Smoking Status: Former smoker alcohol intake: never Discharge Assessment & Plan Assessment and Plan Assessment: I think this time cans is okay to be discharged to a correction facility. I think she needs rehab because she is somewhat debilitated given everything that she has been through. I would draw some labs tomorrow and follow her electrolytes. But I think a physician at a correction facility can manage this safely. I would draw her labs tomorrow I can write a lab slip is needed and she can follow up in our office to arrange that as needed as well. Discharge Plan Discharge Plan Patient Disposition: SNF Transfer to: [facility] Provider Discharge Comment: Continue doxycycline while surgical drain is in place. Follow-up in general surgery clinic for drain removal once output is 50 mL a day or less Activity as tolerated Breast binder or sports from for support/comfort Discharge orders & Medications Prescriptions: Continued amlodipine 5 mg tablet 5 mg PO QNOON lovastatin 40 mg tablet 40 mg PO BEDTIME aspirin 81 mg Tablet,Chewable 81 mg PO BEDTIME hydrochlorothiazide 25 mg Tablet 25 mg PO QNOON losartan 100 mg tablet 100 mg PO QNOON ibuprofen 200 mg tablet 400 mg PO Q6H Qty: 60 0RF acetaminophen [Tylenol] 325 mg capsule 650 mg PO QID PRN (Reason: pain) Qty: 60 0RF docusate sodium [Colace] 100 mg capsule 100 mg PO BID Qty: 30 0RF doxycycline monohydrate 100 mg capsule 100 mg PO BID Qty: 14 0RF oxycodone 5 mg tablet 5 mg PO Q6H PRN (Reason: pain) Qty: 20 0RF Follow up/Referrals: Jr Lyn MD [Physician] - (Follow-up surgical clinic the week for drain removal once output is less than 50 mL per day) Diet/Activity/Treatments Diet: Diet as Tolerated and Regular Skin/Wound/Dressing Care Report to your healthcare provider any signs of infection, such as:: chills, fever, increased pain, unusual drainage and unusual redness Special Rehabilitation Services Reason for rehabilitation: Post-operative therapy Rehab type: Physical therapy and Occupational therapy Discharge Data Primary Care Provider: Esha Wheat
[2021-11-23 12:17] LABS: COVID19 -Nasal RAPID Negative (Negative)
[2021-11-23] MEDS: LOSARTAN 50 MG TABLET 100 MG PO (12:55)
[2021-11-23] MEDS: AMLODIPINE 5 MG TABLET PO (12:55)
[2021-11-23] MEDS: cephALEXin 250 MG CAPSULE 500 MG PO (13:02)
--- NOTE | 2021-11-23 13:12 | PC.NURSE ---
1315 Report called to [facility] Covid negative, IV removed.
--- NOTE | 2021-11-23 13:19 | CM.DPNOTE ---
DC Note DC to [facility] today; completed and signed orders done by surgeon Dr Weston HOOVER ppk faxed to July at [facility], transport arranged for 1300 p/u nurse to nurse provided to RN Jaz TREJO PCR updated Patient and family aware and agreeable to plan, IMM provided Plan: DC to [facility] via cabulance JW
== END 2021-11-23 13:15 | DRG 908 ==
LOC: ED 19:21 → AC 19:28 → ICU 21:25
PROVIDERS: Internal Medicine Critical Care Medicine; Nurse Practitioner Family; Surgery; Admitting Provider Surgery; Emergency Provider Emergency Medicine; PCP Internal Medicine; Referring Provider Emergency Medicine; Visit Provider Surgery
PROC: 0W380ZZ Control Bleeding in Chest Wall, Open Approach (ICD-10-PCS; principal; 2021-11-20 19:45)
DX: M96.841 Postprocedural hematoma of a musculoskeletal structure following other procedure (principal); D62 Acute posthemorrhagic anemia; E87.1 Hypo-osmolality and hyponatremia; L76.22 Postprocedural hemorrhage of skin and subcutaneous tissue following other procedure; N17.9 Acute kidney failure, unspecified; T81.19XA Other postprocedural shock, initial encounter; E87.6 Hypokalemia; I10 Essential (primary) hypertension; E78.5 Hyperlipidemia, unspecified; R73.9 Hyperglycemia, unspecified; D05.12 Intraductal carcinoma in situ of left breast; Z87.891 Personal history of nicotine dependence; Z20.822 Contact with and (suspected) exposure to COVID-19; N60.91 Unspecified benign mammary dysplasia of right breast
CPT/HCPCS: 36415; 36430; 70450; 71045; 71260; 74177; 80048; 80053; 81001; 82550; 82962; 83605; 83690; 83735; 84145; 84484; 85018; 85025; 85610; 85730; 86850; 86900; 86901; 87040; 87635; 87797; 93005; 96365; 96366; 96375; 97162; 97530; 99285; 99291; 99292; C9803; P9016; J0131; J0330; J0690; J1100; J1815; J2405; J2704; J3010; Q9967

== ENCOUNTER → 2022-01-07 14:51 | Outpatient (CLI) | payer MEDICARE, OTHER, SELFPAY ==
[2021-12-19 10:59] VITALS: BMI 32.2
[2022-01-07 16:03] LABS: Add Manual Diff / Slide Review NO; Basophils Absolute Auto 0 /uL (0-100); Basophils Percent Auto 0.5 % (0-2); Eosinophils Absolute Auto 300 /uL (0-450); Eosinophils Percent Auto 3.1 % (2-4); Hematocrit 35.9 % (36-46); Hemoglobin 12.1 g/dL (12.0-16.0); Lymphocytes Absolute Auto 3900 /uL (1100-4500); Lymphocytes Percent Auto 44.5 % (25-40); Mean Corpuscular HGB Conc 33.8 % (30-36); Mean Corpuscular Volume 91.9 fL (80-100); Monocytes Absolute Auto 800 /uL (0-900); Monocytes Percent Auto 8.9 % (3-14); Neutrophils Absolute Auto 3800 /uL (1500-7000); Platelet Count 326 X10^3/uL (150-400); Red Blood Cell Count 3.91 X10^6/uL (4.0-5.2); Red Cell Distribution Width 15.4 % (11.6-14.8); White Blood Cell Count 8.8 X10^3/uL (4.5-11.0)
[2022-01-07 16:22] LABS: Alanine Aminotransferase 21 IU/L (<35); Albumin 4.3 g/dL (3.5-5.0); Albumin Globulin Ratio 1.3 (1.0-2.8); Alkaline Phosphatase 76 U/L (38-126); Aspartate Aminotransferase 28 IU/L (14-36); BUN Creatinine Ratio 15.7 (6-22); Bilirubin Total 0.4 mg/dL (0.2-1.3); Blood Urea Nitrogen 18 mg/dL (7-17); Calcium 10.1 mg/dL (8.4-10.2); Carbon Dioxide 27 mmol/L (22-32); Chloride 100 mmol/L (98-107); Estimated Glomerular Filt Rate 47 mL/min (>60); Globulin 3.3 g/dL (1.7-4.1); Glucose 111 mg/dL (80-110); HEMOLYSIS < 15 (0-50); Sodium 138 mmol/L (137-145); Total Protein 7.6 g/dL (6.3-8.2)
[2022-01-07 16:54] LABS: Appearance Urine UA CLEAR; Bilirubin Urine UA NEGATIVE (NEGATIVE); Color Urine UA YELLOW; Glucose Urine UA NEGATIVE (Negative); Ketones Urine UA TRACE (NEGATIVE); Leukocyte Esterase Urine UA TRACE (NEGATIVE); Nitrite Urine UA NEGATIVE (Negative); Occult Blood Urine UA TRACE-INTACT (Negative); Protein Urine UA NEGATIVE (Negative); Urobilinogen Urine UA 0.2 E.U./dL (0.2)
[2022-01-07 16:55] LABS: pH Urine UA 6.5 (4.5-8.0)
[2022-01-07 17:17] LABS: Bacteria Urine None Seen; Culture Indicated Urine Specimen Cultured; RBC Urine None Seen (0-5/HPF); WBC Urine None Seen (0-5/HPF)
== END ==
PROVIDERS: PCP Family Medicine; Referring Provider Family Medicine; Visit Provider Family Medicine
DX: D64.9 Anemia, unspecified (principal); E87.1 Hypo-osmolality and hyponatremia; R10.9 Unspecified abdominal pain
CPT/HCPCS: 36415; 80053; 81001; 85025; 87086

== ENCOUNTER → 2022-01-12 15:57 | Outpatient (CLI) | payer MEDICARE, OTHER, SELFPAY ==
[2021-12-19 10:59] VITALS: BMI 32.2
--- NOTE | 2022-01-12 16:00 | DI.CT.S_ITS ---
PROCEDURE: CT ABDOMEN PELVIS WO CON INDICATIONS: rt flank pain TECHNIQUE: Axial sections were acquired from the lung bases to the pubic symphysis. Coronal and sagittal reformats were performed. For radiation dose reduction, the following was used: automated exposure control, adjustment of mA and/or kV according to patient size. COMPARISON: [facility], CT, CT CHEST ABD PEL W CON, 11/20/2021, 18:10. [facility], CT, CT ANGIO CHEST PE PROTOCOL, 12/04/2019, 13:10. FINDINGS: Image quality: Excellent. Lung bases: Mild dependent atelectasis is seen. Mild subpleural fibrotic change can be seen the lung bases. A small hiatal hernia is incidentally noted. The right mastectomy site is partially visualized and appears improved compared to the prior. Heart: No significant findings. URINARY: Right Kidney: No stones or hydronephrosis. Along the posterior aspect of the right kidney, there is a water density cyst seen measuring 1.4 cm. Additional smaller cysts are seen elsewhere. Right Ureter: No hydroureter. Left Kidney: There is a left kidney extrarenal pelvis seen. No odell hydronephrosis is seen. The left kidney is mildly atrophic. Left Ureter: No hydroureter. Bladder: Normal wall thickness. No stones. ABDOMEN: Liver: Unremarkable. Gallbladder: Unremarkable. Biliary ducts: Unremarkable. Pancreas: Generalized low density can be seen within the head/uncinate process of the pancreas. Spleen: Unremarkable. Incidental note is made of an accessory splenule along the posterior lateral aspect of the primary spleen. Adrenal Glands: Unremarkable. Stomach and Bowel: Stomach, small bowel loops, and colon are unremarkable. A normal appendix is incidentally noted. Peritoneum: No abnormal intraperitoneal fluid. No free air. Ventral Wall: No hernia. Abdominal Nodes: No enlarged retroperitoneal or mesenteric lymph nodes. Vessels: Aorta and inferior vena cava are normal in size. Atherosclerotic calcification is noted. PELVIS: Pelvic Organs: The uterus is atrophic. No adnexal masses are seen on either side. Pelvic Nodes: Unremarkable. Miscellaneous: No inguinal hernias are seen. Bones: Focal L2-L3 degenerative change is seen, with milder degenerative changes seen elsewhere, including at L5-S1. IMPRESSION: Negative for kidney stones or obstructive uropathy. No hydronephrosis is seen on either side. There is generalized low density seen within the head and uncinate process of the pancreas, which is similar to the prior recent CT dated 11/20/2021. This may simply be secondary to regional fatty infiltration. However, please consider a follow-up pancreas protocol MRI, if clinically appropriate (assuming that there is no contraindication). Improved right mastectomy site, which is partially seen on this study of the abdomen and pelvis. Additional findings: Small hiatal hernia Simple appearing right renal cysts Left kidney extrarenal pelvis Mild left kidney atrophy Normal appendix Atrophic uterus, normal for age Focal L2-L3 and L5-S1 degenerative change. Dictated by: Sony Montejo M.D. on 01/12/2022 at 15:58 Approved by: Sony Montejo M.D. on 01/12/2022 at 16:03
== END ==
PROVIDERS: PCP Family Medicine; Referring Provider Family Medicine; Visit Provider Family Medicine
DX: K44.9 Diaphragmatic hernia without obstruction or gangrene (principal); R10.9 Unspecified abdominal pain; N28.1 Cyst of kidney, acquired; N26.1 Atrophy of kidney (terminal); M47.816 Spondylosis without myelopathy or radiculopathy, lumbar region; M47.817 Spondylosis without myelopathy or radiculopathy, lumbosacral region
CPT/HCPCS: 74176

== ENCOUNTER → 2022-04-15 13:50 | Outpatient (CLI) | payer MEDICARE, OTHER, SELFPAY ==
[2021-12-19 10:59] VITALS: BMI 32.2
[2022-04-15 14:31] LABS: Add Manual Diff / Slide Review NO; Basophils Absolute Auto 100 /uL (0-100); Basophils Percent Auto 0.6 % (0-2); Eosinophils Absolute Auto 200 /uL (0-450); Eosinophils Percent Auto 2.4 % (2-4); Hematocrit 39.5 % (36-46); Hemoglobin 13.3 g/dL (12.0-16.0); Lymphocytes Absolute Auto 3100 /uL (1100-4500); Lymphocytes Percent Auto 36.1 % (25-40); Mean Corpuscular HGB Conc 33.6 % (30-36); Mean Corpuscular Hemoglobin 30.2 PG (26-34); Mean Corpuscular Volume 89.8 fL (80-100); Monocytes Absolute Auto 700 /uL (0-900); Monocytes Percent Auto 7.9 % (3-14); Neutrophils Absolute Auto 4600 /uL (1500-7000); Platelet Count 287 X10^3/uL (150-400); Red Blood Cell Count 4.39 X10^6/uL (4.0-5.2); Red Cell Distribution Width 14.7 % (11.6-14.8); White Blood Cell Count 8.7 X10^3/uL (4.5-11.0)
[2022-04-15 14:49] LABS: Hemoglobin A1C% w Est Avg Glu 6.6 % (4.0-6.0)
[2022-04-15 14:53] LABS: HEMOLYSIS < 15 (0-50); Iron 92 ug/dL (37-170)
[2022-04-15 14:55] LABS: BUN Creatinine Ratio 21.5 (6-22); Blood Urea Nitrogen 20 mg/dL (7-17); Calcium 10.7 mg/dL (8.4-10.2); Carbon Dioxide 27 mmol/L (22-32); Chloride 98 mmol/L (98-107); Estimated Glomerular Filt Rate 60 mL/min (>60); Glucose 115 mg/dL (80-110); Potassium 3.9 mmol/L (3.4-5.1); Sodium 134 mmol/L (137-145)
[2022-04-15 15:01] LABS: Transferrin 294 mg/dL (206-381)
[2022-04-15 15:08] LABS: Percent Iron Saturation 22 % (15-50); Total Iron Binding Capacity 409 ug/dL (265-497)
[2022-04-15 15:25] LABS: TSH w/ Reflex to FT4 1.92 uIU/mL (0.47-4.68)
[2022-04-15 15:28] LABS: Ferritin 12 ng/mL (11-264)
[2022-04-15 15:47] LABS: HEMOLYSIS < 15 (0-50); Vitamin B12 501 pg/mL (239-931)
== END ==
PROVIDERS: PCP Family Medicine; Referring Provider Family Medicine; Visit Provider Family Medicine
DX: G62.9 Polyneuropathy, unspecified (principal); I10 Essential (primary) hypertension; R53.83 Other fatigue; Z13.1 Encounter for screening for diabetes mellitus; Z13.6 Encounter for screening for cardiovascular disorders; D64.9 Anemia, unspecified
CPT/HCPCS: 36415; 80048; 82607; 82728; 83036; 83540; 83550; 84443; 85025

== ENCOUNTER → 2022-06-24 15:18 | Outpatient (CLI) | payer MEDICARE, OTHER, SELFPAY ==
[2021-12-19 10:59] VITALS: BMI 32.2
--- NOTE | 2022-07-09 16:31 | DIAB.MNT ---
Initial Diabetes Medical Nutrition Therapy Assessment Name: Krupa Solis Date: 06/24/22 Time: 330-430p Dx: Type II Diabetes Krupa presents for initial DM visit. Newly dx with T2DM with Hga1c of 6.6% with neuropathy. FH of Dm with mother. Endorses GI upset with Metformin XR, taking with food, only taking 500mg per day due to this. Checking BP at home, usually 140s/70 per report. has not been to dentist in 3 years. Has had recent dilated eye exam. Diet Recall: 730a: egg, toast, small orange 1230p: wrap with chicken, cheese and corn chips OR protein, veggie and half sweet potato 4p: celery and PB OR raisins and walnuts 545p: lentil soup x 1/2 can with toast or 5 crackers 10p: ankush cracker or small orange or 1/2c sherbert or wesley ice cream Beverages: 4c water, 1c green tea, 1 c coffee Anthropometrics: Ht: 66 Wt: 189# 04/2022 at PCP visit Physical Activity: Walking 3x per week for 35 mins Self-Monitoring Blood Glucose: None Diabetes Medications: 1000 mg Metformin XR daily (taking half) Pertinent Labs: hgA1c 6.6% 04/2022 Past Medical History: (Last Updated 05/04/22 @ 13:18 by Kasey Castaneda DO) Benign essential HTN Elevated cholesterol Encounter for annual wellness visit (AWV) in Medicare patient History of unsteady gait Lipoma of breast No significant medical problems Peripheral neuropathy Type 2 diabetes mellitus with complication, without long-term current use of insulin Nutrition Rx: Plate Method Nutrition Diagnosis: - Food and nutrition related knowledge deficit r/t new dx T2DM aeb HgA1c 6.6% Intervention: This participant was very receptive. Provided appropriate educational handouts. Discussed the following topics: Completed intake assessment. Discussed barriers to care. Brief pathophysiology of T2DM HgA1c, its correlation to blood glucose numbers, and rationale for goal Plate Method, impact of macronutrients on blood sugar, meal timing, and spreading out carbohydrates for better blood glucose management Recommended servings for carbohydrates at meals and snacks Role of physical activity and following provider guidelines for safety Diabetes risk reduction: dental, eye Metformin SE and potential for taking HS to reduce Gi upset during day Created SMART goals for patient self-care and success. Goals: Make dental appt Move snack to 3p Aim for 5-6c water Stationary bike 2-3x per week Try low carb wrap Follow-up: CAMRYN FLOYD follow-up in 3-4 weeks Suzy Blackburn RDN, [facility] Certified Diabetes Care and [employer]l Architect P: [phone] Thank you for this referral
== END ==
PROVIDERS: Absent Provider Family Medicine; Family Provider Family Medicine; PCP Family Medicine; Referring Provider Family Medicine; Visit Provider Family Medicine
DX: E11.8 Type 2 diabetes mellitus with unspecified complications (principal); Z79.84 Long term (current) use of oral hypoglycemic drugs; Z71.3 Dietary counseling and surveillance
CPT/HCPCS: 97803

== ENCOUNTER 2022-06-26 14:30 | Outpatient (RCR) | payer MEDICARE, OTHER, SELFPAY ==
[2021-12-19 10:59] VITALS: BMI 32.2
--- NOTE | 2022-06-01 16:45 | PT.OIE ---
Current Diagnoses Unsteadiness on feet (06/01/22) Other abnormalities of gait and mobility (06/01/22) Weakness (06/01/22) Past Medical History (Last Updated 05/04/22 @ 13:18 by Kasey Castaneda DO) Benign essential HTN Elevated cholesterol Encounter for annual wellness visit (AWV) in Medicare patient History of unsteady gait Lipoma of breast No significant medical problems Peripheral neuropathy Type 2 diabetes mellitus with complication, without long-term current use of insulin Past Surgical History (Last Reviewed 11/20/21 @ 23:42 by Oscar Werner MD) History of lumpectomy of right breast (10/24/21) Visit Care Team Role Provider Type Kasey Castaneda DO Attending Provider Physician Family Provider Primary Care Provider Referring Provider Specialty: Family Practice Address: [address] [place] [address], [address], [facility] Email: [email or web address] Physical Therapy Initial Evaluation PT-OP-A Visit Information Start: 06/01/22 17:38 Freq: Status: Active Protocol: Document 06/01/22 16:00 DCW (Rec: 06/01/22 17:54 DCW [id number]) Out-Patient Physical Therapy Visit Information Visit Information Visit Type Initial Evaluation Visit Start Time 16:00 Visit Stop Time 16:45 Total Visit Minutes 45 Visit Number 1 Number of [place] [employer] Visits 0 Evaluation Information Evaluation Date 06/01/22 PT-OP-B Current Condition Start: 06/01/22 17:38 Freq: Status: Active Protocol: Document 06/01/22 16:00 DCW (Rec: 06/01/22 17:54 DC [id number]) Current Condition History of Current Condition Onset Date ~7 month history Current Complaints Weakness, worsening balance, poor activity tolerance History of Current Condition Pt is a 87 year old female presenting with a 7 month history of worsening deconditioning and weakness. Pt Underwent a R mastectomy in October last year, and unfortunately, after returning home, began hemorrhaging and needed to get back into the hospital and underwent a second surgery on the same day . Pt was in the hospital then for an additional three days, and then moved to a SNF for two weeks. Since this time, pt has been having worsening activity tolerance, gait, and balance. Pt admits that she has not been very active recently, but has recently been getting out and walking ~ 8 blocks with her . Pt notes she typically uses a walking stick for community ambulation. Has recently been diagnosed with DM II, and has significant loss of sensation in her toes. Pt reports that she has been having trouble standing up from sitting, and I need to pause and get my bearings before I start to try to walk. Treatment Goals Patient/Caregiver Goals Decrease falls risk and improve strength PT-OP-C Subjective Start: 06/01/22 17:38 Freq: Status: Active Protocol: Document 06/01/22 16:00 DCW (Rec: 06/01/22 17:54 DCW [id number]) OP-PT Subjective Patient Comments Patient Comments I don't really have any pain, which is nice, it just all feels so weak. Patient Questionnaires ABC- Activity Specific Balance Confidence Scale ABC Score 94.69% ABC Functional Impairment 1 to <20% Impaired (Score 81- 99) PT-OP-D Balance Start: 06/01/22 17:38 Freq: Status: Active Protocol: Document 06/01/22 16:00 DCW (Rec: 06/01/22 17:54 DCW [id number]) OP-PT Balance Assessment Sitting Balance Static Sitting Balance Ability Normal Standing Balance Static Standing Balance Ability Good Dynamic Standing Balance Ability Fair Balance Tests Lozano Balance Test Lozano Balance Test Score 44/56 Lozano Impairment Rating 20 to 39% Impaired (Score 34- 44) Lozano Balance Assessment Evaluation Sitting to Standing Ability Independent w/out Hands Unsupported Stance Safely- 2 minutes Sitting Unsupported, Feet on Floor Safely- 2 minutes Standing to Sitting Ability Safely, Minimal Hand Use Transfer Ability Safely, Minimal Hand Use Unsupported Stance- Eyes Closed Safely, 10 seconds Unsupported Stance- Eyes Open Supervision to maintain Reaching Forward Standing Safely, 5 inches Pick- Up Object From Floor Supervision Look Behind Shoulder - Standing Turns Sideways Only Turning 360 Degrees Turns slowly, but safely Unsupported Stance, Alternating Feet on 4 Steps w/Supervision Stair Unsupported Tandem Stance Holds Tandem- 30 seconds Unilateral Leg Stance Lifts Leg/Holds > 3 secs Total Score Lozano Total Score (out of 56 points) 44 Lozano Impairment Rating 20 to 39% Impaired (Score 34- 44) De Fall Scale Copyright Permission PT-OP-E Functional Tests Start: 06/01/22 17:38 Freq: Status: Active Protocol: Document 06/01/22 16:00 DCW (Rec: 06/01/22 17:54 DCW [id number]) Functional Tests Dynamic Gait Index (DGI) Score 15 DGI Impairment Rating 20 to <40% Impaired (Score 15- 19) Timed Up and Go (TUG) Score 11.11 Comments Three-trial average (12.13, 11 .05, 10.14) TUG Impairment Rating 1 to <20% Impaired (Score 11) PT-OP-M Strength Start: 06/01/22 17:38 Freq: Status: Active Protocol: Document 06/01/22 16:00 DCW (Rec: 06/01/22 17:54 DCW [id number]) Hip Strength Hip Manual Muscle Testing Right Flexion (L2) 3 Fair Abduction 3 Fair Adduction 4- Good- External Rotation 4 Good Internal Rotation 4 Good Left Flexion (L2) 4- Good- Abduction 3+ Fair+ Adduction 4- Good- External Rotation 4+ Good+ Internal Rotation 4+ Good+ Knee Strength Knee Manual Muscle Testing Right Flexion (S2) 4 Good Extension (L3) 4+ Good+ Left Flexion (S2) 4- Good- Extension (L3) 3+ Fair+ Ankle/Foot Strength Ankle and Foot Manual Muscle Testing Right Dorsiflexion (L4) 4 Good Left Dorsiflexion (L4) 4 Good PT-OP-T Assessment and Plan Start: 06/01/22 17:38 Freq: Status: Active Protocol: Document 06/01/22 16:00 DCW (Rec: 06/02/22 09:37 DCW [id number]) Physical Therapy Assessment Rehab Potential Rehabilitation Potential Good Evaluation Complexity Number of Personal Factors/Comorbidities 3 or More Number of Body Systems Impaired 3 Clinical Presentation at Evaluation Unstable Impairments Impairments Activity Tolerance,Balance, Functional Activities, Functional Mobility,Strength Goals Three Impairment Pt shows significant LE weakness bilaterally, right worse than left Fpc Goal (LTG) Pt to increase bilateral LE MMT to at least 4-/5 in all planes in order to improve activity tolerance and dynamic stability. LTG Duration 08/30/22 Two Impairment Pt scores at an increased falls risk, per DGI () Fpc Goal (LTG) Pt to increase DGI score by at least 5 points to in order to exhibit a decrease in falls risk. LTG Duration 08/30/22 One Impairment Pt does not have an appropriate home exercise program Short Term Goal (STG) Pt to be independent and compliant with an appropriate HEP STG Duration 07/01/22 Assessment Summary Assessment Pt presents with generalized deconditioning, weakness, and declining balance following a difficult recovery after a mastectomy and second emergency surgery the same day due to hemorrhaging seven months ago. Pt has not been very active since surgery, and has noticed a lot of functional decline. Lozano testing shows static balance is right on the edge of increased falls risk, with a score of 45/56, however dynamic balance is worse, scoring a 15/24 on the DGI. Pt should benefit from skilled therapy focusing on LE strengthening, balance challenges, gait training, improving activity tolerance, and decreasing fear of falling . Physical Therapy Plan Frequency and Duration Frequency of Treatment 2x/Week Plan of Care Start Date 06/01/22 Plan of Care End Date 08/30/22 Therapeutic Interventions Therapeutic Interventions Balance Training,Gait Training ,Home Exercise Program,Manual Therapy,Neuromuscular Re- education,Patient/Caregiver Education,Self-Care/Home Management,Soft Tissue Mobilization,Therapeutic Activities,Therapeutic Exercises Next Visit Focus/Plan Next Note Type Treatment Note Next Visit Plan Balance training, gait, LE strengthening, improving activity tolerance
--- NOTE | 2022-06-01 16:45 | PT.OPPOC ---
Physical, Occupational & Speech Therapy At [facility] Current Diagnoses Unsteadiness on feet (06/01/22) Other abnormalities of gait and mobility (06/01/22) Weakness (06/01/22) Visit Care Team Role Provider Type Kasey Castaneda DO Attending Provider Physician Family Provider Primary Care Provider Referring Provider Specialty: Family Practice Address: [address] [place] [address], [address], [facility] Email: [email or web address] Plan Of Care PT-OP-T Assessment and Plan Start: 06/01/22 17:38 Freq: Status: Active Protocol: Document 06/01/22 16:00 DCW (Rec: 06/02/22 09:37 DCW [id number]) Physical Therapy Assessment Rehab Potential Rehabilitation Potential Good Evaluation Complexity Number of Personal Factors/Comorbidities 3 or More Number of Body Systems Impaired 3 Clinical Presentation at Evaluation Unstable Impairments Impairments Activity Tolerance,Balance, Functional Activities, Functional Mobility,Strength Goals Three Impairment Pt shows significant LE weakness bilaterally, right worse than left Crane Manager Goal (LTG) Pt to increase bilateral LE MMT to at least 4-/5 in all planes in order to improve activity tolerance and dynamic stability. LTG Duration 08/30/22 Two Impairment Pt scores at an increased falls risk, per DGI (15/24) Crane Manager Goal (LTG) Pt to increase DGI score by at least 5 points to 20/24 in order to exhibit a decrease in falls risk. LTG Duration 08/30/22 One Impairment Pt does not have an appropriate home exercise program Short Term Goal (STG) Pt to be independent and compliant with an appropriate HEP STG Duration 07/01/22 Assessment Summary Assessment Pt presents with generalized deconditioning, weakness, and declining balance following a difficult recovery after a mastectomy and second emergency surgery the same day due to hemorrhaging seven months ago. Pt has not been very active since surgery, and has noticed a lot of functional decline. Lozano testing shows static balance is right on the edge of increased falls risk, with a score of 45/56, however dynamic balance is worse, scoring a 15/24 on the DGI. Pt should benefit from skilled therapy focusing on LE strengthening, balance challenges, gait training, improving activity tolerance, and decreasing fear of falling . Physical Therapy Plan Frequency and Duration Frequency of Treatment 2x/Week Plan of Care Start Date 06/01/22 Plan of Care End Date 08/30/22 Therapeutic Interventions Therapeutic Interventions Balance Training,Gait Training ,Home Exercise Program,Manual Therapy,Neuromuscular Re- education,Patient/Caregiver Education,Self-Care/Home Management,Soft Tissue Mobilization,Therapeutic Activities,Therapeutic Exercises Next Visit Focus/Plan Next Note Type Treatment Note Next Visit Plan Balance training, gait, LE strengthening, improving activity tolerance Plan of Care Dates Plan of Care Start Date 06/01/22 Plan of Care End Date 08/30/22 Electronically Signed by: Jose Unger, PT 06/02/22 0938 If you are in agreement with this Plan of Care, please return a signed and dated copy. I have reviewed this Plan of Care and certify that the skilled therapy services above are required to meet the patient?s needs. Physician Signature Date Printed Name and Credentials Clinical Instructor Signature Printed Name and Credentials
--- NOTE | 2022-06-03 16:54 | PT.OTN ---
Current Diagnoses Unsteadiness on feet (06/03/22) Other abnormalities of gait and mobility (06/03/22) Weakness (06/03/22) Physical Therapy Treatment Note PT-OP-A Visit Information Start: 06/01/22 17:38 Freq: Status: Active Protocol: Document 06/03/22 16:03 DCW (Rec: 06/03/22 16:54 DCW [id number]) Out-Patient Physical Therapy Visit Information Visit Information Visit Type Treatment Note Visit Start Time 16:03 Visit Stop Time 16:47 Total Visit Minutes 44 Visit Number 2 Number of CARBON PRINTER Visits 0 Evaluation Information Evaluation Date 06/01/22 PT-OP-B Current Condition Start: 06/01/22 17:38 Freq: Status: Active Protocol: Document 06/01/22 16:00 DCW (Rec: 06/01/22 17:54 DCW [id number]) Current Condition History of Current Condition Onset Date ~7 month history Current Complaints Weakness, worsening balance, poor activity tolerance History of Current Condition Pt is a 87 year old female presenting with a 7 month history of worsening deconditioning and weakness. Pt Underwent a R mastectomy in October last year, and unfortunately, after returning home, began hemorrhaging and needed to get back into the hospital and underwent a second surgery on the same day . Pt was in the hospital then for an additional three days, and then moved to a SNF for two weeks. Since this time, pt has been having worsening activity tolerance, gait, and balance. Pt admits that she has not been very active recently, but has recently been getting out and walking ~ 8 blocks with her . Pt notes she typically uses a walking stick for community ambulation. Has recently been diagnosed with DM II, and has significant loss of sensation in her toes. Pt reports that she has been having trouble standing up from sitting, and I need to pause and get my bearings before I start to try to walk. Treatment Goals Patient/Caregiver Goals Decrease falls risk and improve strength PT-OP-C Subjective Start: 06/01/22 17:38 Freq: Status: Active Protocol: Document 06/03/22 16:03 DCW (Rec: 06/03/22 16:54 DCW [id number]) OP-PT Subjective Patient Comments Patient Comments Pt notes she is doing well today, but didn't get out for a walk around her neighborhood , so she didn't get a lot of activity. PT-OP-D Balance Start: 06/01/22 17:38 Freq: Status: Active Protocol: Document 06/01/22 16:00 DCW (Rec: 06/01/22 17:54 DCW [id number]) OP-PT Balance Assessment Sitting Balance Static Sitting Balance Ability Normal Standing Balance Static Standing Balance Ability Good Dynamic Standing Balance Ability Fair Balance Tests Lozano Balance Test Lozano Balance Test Score 44/56 Lozano Impairment Rating 20 to 39% Impaired (Score 34- 44) Lozano Balance Assessment Evaluation Sitting to Standing Ability Independent w/out Hands Unsupported Stance Safely- 2 minutes Sitting Unsupported, Feet on Floor Safely- 2 minutes Standing to Sitting Ability Safely, Minimal Hand Use Transfer Ability Safely, Minimal Hand Use Unsupported Stance- Eyes Closed Safely, 10 seconds Unsupported Stance- Eyes Open Supervision to maintain Reaching Forward Standing Safely, 5 inches Pick- Up Object From Floor Supervision Look Behind Shoulder - Standing Turns Sideways Only Turning 360 Degrees Turns slowly, but safely Unsupported Stance, Alternating Feet on 4 Steps w/Supervision Stair Unsupported Tandem Stance Holds Tandem- 30 seconds Unilateral Leg Stance Lifts Leg/Holds > 3 secs Total Score Lozano Total Score (out of 56 points) 44 Lozano Impairment Rating 20 to 39% Impaired (Score 34- 44) De Fall Scale Copyright Permission PT-OP-E Functional Tests Start: 06/01/22 17:38 Freq: Status: Active Protocol: Document 06/01/22 16:00 DCW (Rec: 06/01/22 17:54 DC [id number]) Functional Tests Dynamic Gait Index (DGI) Score 15/24 DGI Impairment Rating 20 to <40% Impaired (Score 15- 19) Timed Up and Go (TUG) Score 11.11 Comments Three-trial average (12.13, 11 .05, 10.14) TUG Impairment Rating 1 to <20% Impaired (Score 11) PT-OP-M Strength Start: 06/01/22 17:38 Freq: Status: Active Protocol: Document 06/01/22 16:00 DCW (Rec: 06/01/22 17:54 DCW [id number]) Hip Strength Hip Manual Muscle Testing Right Flexion (L2) 3 Fair Abduction 3 Fair Adduction 4- Good- External Rotation 4 Good Internal Rotation 4 Good Left Flexion (L2) 4- Good- Abduction 3+ Fair+ Adduction 4- Good- External Rotation 4+ Good+ Internal Rotation 4+ Good+ Knee Strength Knee Manual Muscle Testing Right Flexion (S2) 4 Good Extension (L3) 4+ Good+ Left Flexion (S2) 4- Good- Extension (L3) 3+ Fair+ Ankle/Foot Strength Ankle and Foot Manual Muscle Testing Right Dorsiflexion (L4) 4 Good Left Dorsiflexion (L4) 4 Good PT-OP-Q Treatments Start: 06/01/22 17:38 Freq: Status: Active Protocol: Document 06/03/22 16:03 DCW (Rec: 06/03/22 16:54 DCW [id number]) Cardio Equipment Recumbent Elliptical (Biodex) Duration (Minutes) 5 Resistance 5 Seat Position 6 Gym Equipment Shuttle Recovery Unilateral Squats Resistance 37# Bilateral Squats Resistance 75# Shuttle Balance Red Details WBOS, Staggered Therapeutic Exercises Other Exercises Resisted Ambulation Other Exercise Name Resisted side-stepping Resistance Red Neuro Re-Education Treatment Balance Activities Foam Stance Details NBOS Surface Blue Foam Tandem Stance Details Tandem Stance Equipment // bars Comments Horizontal/vertical head turns PT-OP-T Assessment and Plan Start: 06/01/22 17:38 Freq: Status: Active Protocol: Document 06/03/22 16:03 DCW (Rec: 06/03/22 16:54 DC [id number]) Physical Therapy Assessment Impairments Impairments Activity Tolerance,Balance, Functional Activities, Functional Mobility,Strength Goals Three Impairment Pt shows significant LE weakness bilaterally, right worse than left Short Story Writer Goal (LTG) Pt to increase bilateral LE MMT to at least 4-/5 in all planes in order to improve activity tolerance and dynamic stability. LTG Duration 08/30/22 Two Impairment Pt scores at an increased falls risk, per DGI () Shelter Goal (LTG) Pt to increase DGI score by at least 5 points to in order to exhibit a decrease in falls risk. LTG Duration 08/30/22 One Impairment Pt does not have an appropriate home exercise program Short Term Goal (STG) Pt to be independent and compliant with an appropriate HEP STG Duration 07/01/22 Assessment Summary Assessment Pt tolerated treatment very well after having some increased anxiety about falling with new balance activities. Pt does clearly have decreased activity tolerance, SOB with Biodex and following leg press. Physical Therapy Plan Frequency and Duration Frequency of Treatment 2x/Week Plan of Care Start Date 06/01/22 Plan of Care End Date 08/30/22 Therapeutic Interventions Therapeutic Interventions Balance Training,Gait Training ,Home Exercise Program,Manual Therapy,Neuromuscular Re- education,Patient/Caregiver Education,Self-Care/Home Management,Soft Tissue Mobilization,Therapeutic Activities,Therapeutic Exercises Next Visit Focus/Plan Next Note Type Treatment Note Next Visit Plan Balance training, gait, LE strengthening, improving activity tolerance
--- NOTE | 2022-06-08 15:11 | PT.OTN ---
Current Diagnoses Unsteadiness on feet (06/08/22) Other abnormalities of gait and mobility (06/08/22) Weakness (06/08/22) Physical Therapy Treatment Note PT-OP-A Visit Information Start: 06/01/22 17:38 Freq: Status: Active Protocol: Document 06/08/22 14:30 DCW (Rec: 06/08/22 15:11 DCW [id number]) Out-Patient Physical Therapy Visit Information Visit Information Visit Type Treatment Note Visit Start Time 14:30 Visit Stop Time 15:15 Total Visit Minutes 45 Visit Number 3 Number of SYSTEMS SPECIALIST Visits 0 Evaluation Information Evaluation Date 06/01/22 PT-OP-B Current Condition Start: 06/01/22 17:38 Freq: Status: Active Protocol: Document 06/01/22 16:00 DCW (Rec: 06/01/22 17:54 DCW [id number]) Current Condition History of Current Condition Onset Date ~7 month history Current Complaints Weakness, worsening balance, poor activity tolerance History of Current Condition Pt is a 87 year old female presenting with a 7 month history of worsening deconditioning and weakness. Pt Underwent a R mastectomy in October last year, and unfortunately, after returning home, began hemorrhaging and needed to get back into the hospital and underwent a second surgery on the same day . Pt was in the hospital then for an additional three days, and then moved to a SNF for two weeks. Since this time, pt has been having worsening activity tolerance, gait, and balance. Pt admits that she has not been very active recently, but has recently been getting out and walking ~ 8 blocks with her . Pt notes she typically uses a walking stick for community ambulation. Has recently been diagnosed with DM II, and has significant loss of sensation in her toes. Pt reports that she has been having trouble standing up from sitting, and I need to pause and get my bearings before I start to try to walk. Treatment Goals Patient/Caregiver Goals Decrease falls risk and improve strength PT-OP-C Subjective Start: 06/01/22 17:38 Freq: Status: Active Protocol: Document 06/08/22 14:30 DCW (Rec: 06/08/22 15:11 DCW [id number]) OP-PT Subjective Patient Comments Patient Comments I wish I was more active, when I get up off the couch after sitting too long, it is always worse. PT-OP-D Balance Start: 06/01/22 17:38 Freq: Status: Active Protocol: Document 06/01/22 16:00 DCW (Rec: 06/01/22 17:54 DCW [id number]) OP-PT Balance Assessment Sitting Balance Static Sitting Balance Ability Normal Standing Balance Static Standing Balance Ability Good Dynamic Standing Balance Ability Fair Balance Tests Lozano Balance Test Lozano Balance Test Score 44/56 Lozano Impairment Rating 20 to 39% Impaired (Score 34- 44) Lozano Balance Assessment Evaluation Sitting to Standing Ability Independent w/out Hands Unsupported Stance Safely- 2 minutes Sitting Unsupported, Feet on Floor Safely- 2 minutes Standing to Sitting Ability Safely, Minimal Hand Use Transfer Ability Safely, Minimal Hand Use Unsupported Stance- Eyes Closed Safely, 10 seconds Unsupported Stance- Eyes Open Supervision to maintain Reaching Forward Standing Safely, 5 inches Pick- Up Object From Floor Supervision Look Behind Shoulder - Standing Turns Sideways Only Turning 360 Degrees Turns slowly, but safely Unsupported Stance, Alternating Feet on 4 Steps w/Supervision Stair Unsupported Tandem Stance Holds Tandem- 30 seconds Unilateral Leg Stance Lifts Leg/Holds > 3 secs Total Score Lozano Total Score (out of 56 points) 44 Lozano Impairment Rating 20 to 39% Impaired (Score 34- 44) De Fall Scale Copyright Permission PT-OP-E Functional Tests Start: 06/01/22 17:38 Freq: Status: Active Protocol: Document 06/01/22 16:00 DCW (Rec: 06/01/22 17:54 [facility] [id number]) Functional Tests Dynamic Gait Index (DGI) Score 15/24 DGI Impairment Rating 20 to <40% Impaired (Score 15- 19) Timed Up and Go (TUG) Score 11.11 Comments Three-trial average (12.13, 11 .05, 10.14) TUG Impairment Rating 1 to <20% Impaired (Score 11) PT-OP-M Strength Start: 06/01/22 17:38 Freq: Status: Active Protocol: Document 06/01/22 16:00 DCW (Rec: 06/01/22 17:54 DCW [id number]) Hip Strength Hip Manual Muscle Testing Right Flexion (L2) 3 Fair Abduction 3 Fair Adduction 4- Good- External Rotation 4 Good Internal Rotation 4 Good Left Flexion (L2) 4- Good- Abduction 3+ Fair+ Adduction 4- Good- External Rotation 4+ Good+ Internal Rotation 4+ Good+ Knee Strength Knee Manual Muscle Testing Right Flexion (S2) 4 Good Extension (L3) 4+ Good+ Left Flexion (S2) 4- Good- Extension (L3) 3+ Fair+ Ankle/Foot Strength Ankle and Foot Manual Muscle Testing Right Dorsiflexion (L4) 4 Good Left Dorsiflexion (L4) 4 Good PT-OP-Q Treatments Start: 06/01/22 17:38 Freq: Status: Active Protocol: Document 06/08/22 14:30 DCW (Rec: 06/08/22 15:11 DCW [id number]) Cardio Equipment Recumbent Elliptical (Biodex) Duration (Minutes) 5 Resistance 5 Seat Position 6 Gym Equipment Shuttle Recovery Unilateral Squats Resistance 37# Bilateral Squats Resistance 75# Shuttle Balance Red Details WBOS (EO/EC), Staggered Therapeutic Exercises Standing Exercises Toe-taps Standing Exercise Name Toe-taps Side bilateral Resistance 5# Hamstring curls Standing Exercise Name HS Curls Side bilateral Resistance 5# Other Exercises Resisted Ambulation Other Exercise Name Resisted side-stepping Resistance Green Neuro Re-Education Treatment Balance Activities SLS Details SLS Equipment @rail Tandem Stance Details Tandem Stance Equipment // bars Comments Horizontal/vertical head turns PT-OP-T Assessment and Plan Start: 06/01/22 17:38 Freq: Status: Active Protocol: Document 06/08/22 14:30 DCW (Rec: 06/08/22 15:11 DCW [id number]) Physical Therapy Assessment Impairments Impairments Activity Tolerance,Balance, Functional Activities, Functional Mobility,Strength Goals Three Impairment Pt shows significant LE weakness bilaterally, right worse than left [facility]cf Goal (LTG) Pt to increase bilateral LE MMT to at least 4-/5 in all planes in order to improve activity tolerance and dynamic stability. LTG Duration 08/30/22 Two Impairment Pt scores at an increased falls risk, per DGI () Barrelhead Inspector Goal (LTG) Pt to increase DGI score by at least 5 points to in order to exhibit a decrease in falls risk. LTG Duration 08/30/22 One Impairment Pt does not have an appropriate home exercise program Short Term Goal (STG) Pt to be independent and compliant with an appropriate HEP STG Duration 07/01/22 Assessment Summary Assessment Pt very fatigued by end of session, but very happy with getting such a good workout. Did well with all activities, showing increased confidence with stability and balance. Physical Therapy Plan Frequency and Duration Frequency of Treatment 2x/Week Plan of Care Start Date 06/01/22 Plan of Care End Date 08/30/22 Therapeutic Interventions Therapeutic Interventions Balance Training,Gait Training ,Home Exercise Program,Manual Therapy,Neuromuscular Re- education,Patient/Caregiver Education,Self-Care/Home Management,Soft Tissue Mobilization,Therapeutic Activities,Therapeutic Exercises Next Visit Focus/Plan Next Note Type Treatment Note Next Visit Plan Balance training, gait, LE strengthening, improving activity tolerance
--- NOTE | 2022-06-10 15:15 | PT.OTN ---
Current Diagnoses Unsteadiness on feet (06/10/22) Other abnormalities of gait and mobility (06/10/22) Weakness (06/10/22) Physical Therapy Treatment Note PT-OP-A Visit Information Start: 06/01/22 17:38 Freq: Status: Active Protocol: Document 06/10/22 14:30 DCW (Rec: 06/10/22 15:15 DCW [id number]) Out-Patient Physical Therapy Visit Information Visit Information Visit Type Treatment Note Visit Start Time 14:30 Visit Stop Time 15:15 Total Visit Minutes 45 Visit Number 4 Number of CREDIT RISK MANAGER Visits 0 Evaluation Information Evaluation Date 06/01/22 PT-OP-B Current Condition Start: 06/01/22 17:38 Freq: Status: Active Protocol: Document 06/01/22 16:00 DCW (Rec: 06/01/22 17:54 DCW [id number]) Current Condition History of Current Condition Onset Date ~7 month history Current Complaints Weakness, worsening balance, poor activity tolerance History of Current Condition Pt is a 87 year old female presenting with a 7 month history of worsening deconditioning and weakness. Pt Underwent a R mastectomy in October last year, and unfortunately, after returning home, began hemorrhaging and needed to get back into the hospital and underwent a second surgery on the same day . Pt was in the hospital then for an additional three days, and then moved to a SNF for two weeks. Since this time, pt has been having worsening activity tolerance, gait, and balance. Pt admits that she has not been very active recently, but has recently been getting out and walking ~ 8 blocks with her . Pt notes she typically uses a walking stick for community ambulation. Has recently been diagnosed with DM II, and has significant loss of sensation in her toes. Pt reports that she has been having trouble standing up from sitting, and I need to pause and get my bearings before I start to try to walk. Treatment Goals Patient/Caregiver Goals Decrease falls risk and improve strength PT-OP-C Subjective Start: 06/01/22 17:38 Freq: Status: Active Protocol: Document 06/10/22 14:30 DCW (Rec: 06/10/22 15:15 DCW [id number]) OP-PT Subjective Patient Comments Patient Comments I'm feeling okay. I already had a busy morning, just trying to get up and get around today. PT-OP-D Balance Start: 06/01/22 17:38 Freq: Status: Active Protocol: Document 06/01/22 16:00 DCW (Rec: 06/01/22 17:54 DCW [id number]) OP-PT Balance Assessment Sitting Balance Static Sitting Balance Ability Normal Standing Balance Static Standing Balance Ability Good Dynamic Standing Balance Ability Fair Balance Tests Lozano Balance Test Lozano Balance Test Score 44/56 Lozano Impairment Rating 20 to 39% Impaired (Score 34- 44) Lozano Balance Assessment Evaluation Sitting to Standing Ability Independent w/out Hands Unsupported Stance Safely- 2 minutes Sitting Unsupported, Feet on Floor Safely- 2 minutes Standing to Sitting Ability Safely, Minimal Hand Use Transfer Ability Safely, Minimal Hand Use Unsupported Stance- Eyes Closed Safely, 10 seconds Unsupported Stance- Eyes Open Supervision to maintain Reaching Forward Standing Safely, 5 inches Pick- Up Object From Floor Supervision Look Behind Shoulder - Standing Turns Sideways Only Turning 360 Degrees Turns slowly, but safely Unsupported Stance, Alternating Feet on 4 Steps w/Supervision Stair Unsupported Tandem Stance Holds Tandem- 30 seconds Unilateral Leg Stance Lifts Leg/Holds > 3 secs Total Score Lozano Total Score (out of 56 points) 44 Lozano Impairment Rating 20 to 39% Impaired (Score 34- 44) De Fall Scale Copyright Permission PT-OP-E Functional Tests Start: 06/01/22 17:38 Freq: Status: Active Protocol: Document 06/01/22 16:00 DCW (Rec: 06/01/22 17:54 [facility] [id number]) Functional Tests Dynamic Gait Index (DGI) Score 15/24 DGI Impairment Rating 20 to <40% Impaired (Score 15- 19) Timed Up and Go (TUG) Score 11.11 Comments Three-trial average (12.13, 11 .05, 10.14) TUG Impairment Rating 1 to <20% Impaired (Score 11) PT-OP-M Strength Start: 06/01/22 17:38 Freq: Status: Active Protocol: Document 06/01/22 16:00 DCW (Rec: 06/01/22 17:54 DCW [id number]) Hip Strength Hip Manual Muscle Testing Right Flexion (L2) 3 Fair Abduction 3 Fair Adduction 4- Good- External Rotation 4 Good Internal Rotation 4 Good Left Flexion (L2) 4- Good- Abduction 3+ Fair+ Adduction 4- Good- External Rotation 4+ Good+ Internal Rotation 4+ Good+ Knee Strength Knee Manual Muscle Testing Right Flexion (S2) 4 Good Extension (L3) 4+ Good+ Left Flexion (S2) 4- Good- Extension (L3) 3+ Fair+ Ankle/Foot Strength Ankle and Foot Manual Muscle Testing Right Dorsiflexion (L4) 4 Good Left Dorsiflexion (L4) 4 Good PT-OP-Q Treatments Start: 06/01/22 17:38 Freq: Status: Active Protocol: Document 06/10/22 14:30 DCW (Rec: 06/10/22 15:15 DCW [id number]) Cardio Equipment Recumbent Elliptical (Biodex) Duration (Minutes) 5 Resistance 5 Seat Position 7 Gym Equipment Shuttle Recovery Unilateral Squats Resistance 37# Bilateral Squats Resistance 75# Shuttle Balance Red Details WBOS (EO/EC), Staggered Therapeutic Exercises Standing Exercises Toe-taps Standing Exercise Name Toe-taps Side bilateral Resistance 5# Equipment Used 6 step Hamstring curls Standing Exercise Name HS Curls Side bilateral Resistance 5# Other Exercises Resisted Ambulation Other Exercise Name Resisted side-stepping Resistance Green Neuro Re-Education Treatment Balance Activities Foam Stance Details NBOS Surface Blue Foam Tandem Stance Details Tandem Stance Equipment // bars Comments Horizontal/vertical head turns PT-OP-T Assessment and Plan Start: 06/01/22 17:38 Freq: Status: Active Protocol: Document 06/10/22 14:30 DCW (Rec: 06/10/22 15:15 DCW [id number]) Physical Therapy Assessment Impairments Impairments Activity Tolerance,Balance, Functional Activities, Functional Mobility,Strength Goals Three Impairment Pt shows significant LE weakness bilaterally, right worse than left Mineral Engineer Goal (LTG) Pt to increase bilateral LE MMT to at least 4-/5 in all planes in order to improve activity tolerance and dynamic stability. LTG Duration 08/30/22 Two Impairment Pt scores at an increased falls risk, per DGI () Mineral Engineer Goal (LTG) Pt to increase DGI score by at least 5 points to in order to exhibit a decrease in falls risk. LTG Duration 08/30/22 One Impairment Pt does not have an appropriate home exercise program Short Term Goal (STG) Pt to be independent and compliant with an appropriate HEP STG Duration 07/01/22 Assessment Summary Assessment Pt tolerated activity slightly more today, although still struggled and needed multiple rest breaks to catch her breath. Physical Therapy Plan Frequency and Duration Frequency of Treatment 2x/Week Plan of Care Start Date 06/01/22 Plan of Care End Date 08/30/22 Therapeutic Interventions Therapeutic Interventions Balance Training,Gait Training ,Home Exercise Program,Manual Therapy,Neuromuscular Re- education,Patient/Caregiver Education,Self-Care/Home Management,Soft Tissue Mobilization,Therapeutic Activities,Therapeutic Exercises Next Visit Focus/Plan Next Note Type Treatment Note Next Visit Plan Balance training, gait, LE strengthening, improving activity tolerance
--- NOTE | 2022-06-15 15:16 | PT.OTN ---
Current Diagnoses Unsteadiness on feet (06/15/22) Other abnormalities of gait and mobility (06/15/22) Weakness (06/15/22) Physical Therapy Treatment Note PT-OP-A Visit Information Start: 06/01/22 17:38 Freq: Status: Active Protocol: Document 06/15/22 14:30 DCW (Rec: 06/15/22 15:16 DCW [id number]) Out-Patient Physical Therapy Visit Information Visit Information Visit Type Treatment Note Visit Start Time 14:30 Visit Stop Time 15:15 Total Visit Minutes 45 Visit Number 5 Number of VACUUM KETTLE COOK Visits 0 Evaluation Information Evaluation Date 06/01/22 PT-OP-B Current Condition Start: 06/01/22 17:38 Freq: Status: Active Protocol: Document 06/01/22 16:00 DCW (Rec: 06/01/22 17:54 DCW [id number]) Current Condition History of Current Condition Onset Date ~7 month history Current Complaints Weakness, worsening balance, poor activity tolerance History of Current Condition Pt is a 87 year old female presenting with a 7 month history of worsening deconditioning and weakness. Pt Underwent a R mastectomy in October last year, and unfortunately, after returning home, began hemorrhaging and needed to get back into the hospital and underwent a second surgery on the same day . Pt was in the hospital then for an additional three days, and then moved to a SNF for two weeks. Since this time, pt has been having worsening activity tolerance, gait, and balance. Pt admits that she has not been very active recently, but has recently been getting out and walking ~ 8 blocks with her . Pt notes she typically uses a walking stick for community ambulation. Has recently been diagnosed with DM II, and has significant loss of sensation in her toes. Pt reports that she has been having trouble standing up from sitting, and I need to pause and get my bearings before I start to try to walk. Treatment Goals Patient/Caregiver Goals Decrease falls risk and improve strength PT-OP-C Subjective Start: 06/01/22 17:38 Freq: Status: Active Protocol: Document 06/15/22 14:30 DCW (Rec: 06/15/22 15:16 DCW [id number]) OP-PT Subjective Patient Comments Patient Comments Just the fact that I can take a shower, stand there with my head back, and not lose my balance, I think I'm doing better. PT-OP-D Balance Start: 06/01/22 17:38 Freq: Status: Active Protocol: Document 06/01/22 16:00 DCW (Rec: 06/01/22 17:54 [facility] [id number]) OP-PT Balance Assessment Sitting Balance Static Sitting Balance Ability Normal Standing Balance Static Standing Balance Ability Good Dynamic Standing Balance Ability Fair Balance Tests Lozano Balance Test Lozano Balance Test Score 44/56 Lozano Impairment Rating 20 to 39% Impaired (Score 34- 44) Lozano Balance Assessment Evaluation Sitting to Standing Ability Independent w/out Hands Unsupported Stance Safely- 2 minutes Sitting Unsupported, Feet on Floor Safely- 2 minutes Standing to Sitting Ability Safely, Minimal Hand Use Transfer Ability Safely, Minimal Hand Use Unsupported Stance- Eyes Closed Safely, 10 seconds Unsupported Stance- Eyes Open Supervision to maintain Reaching Forward Standing Safely, 5 inches Pick- Up Object From Floor Supervision Look Behind Shoulder - Standing Turns Sideways Only Turning 360 Degrees Turns slowly, but safely Unsupported Stance, Alternating Feet on 4 Steps w/Supervision Stair Unsupported Tandem Stance Holds Tandem- 30 seconds Unilateral Leg Stance Lifts Leg/Holds > 3 secs Total Score Lozano Total Score (out of 56 points) 44 Lozano Impairment Rating 20 to 39% Impaired (Score 34- 44) De Fall Scale Copyright Permission PT-OP-E Functional Tests Start: 06/01/22 17:38 Freq: Status: Active Protocol: Document 06/01/22 16:00 DCW (Rec: 06/01/22 17:54 [facility] [id number]) Functional Tests Dynamic Gait Index (DGI) Score 15/24 DGI Impairment Rating 20 to <40% Impaired (Score 15- 19) Timed Up and Go (TUG) Score 11.11 Comments Three-trial average (12.13, 11 .05, 10.14) TUG Impairment Rating 1 to <20% Impaired (Score 11) PT-OP-M Strength Start: 06/01/22 17:38 Freq: Status: Active Protocol: Document 06/01/22 16:00 DCW (Rec: 06/01/22 17:54 [facility] [id number]) Hip Strength Hip Manual Muscle Testing Right Flexion (L2) 3 Fair Abduction 3 Fair Adduction 4- Good- External Rotation 4 Good Internal Rotation 4 Good Left Flexion (L2) 4- Good- Abduction 3+ Fair+ Adduction 4- Good- External Rotation 4+ Good+ Internal Rotation 4+ Good+ Knee Strength Knee Manual Muscle Testing Right Flexion (S2) 4 Good Extension (L3) 4+ Good+ Left Flexion (S2) 4- Good- Extension (L3) 3+ Fair+ Ankle/Foot Strength Ankle and Foot Manual Muscle Testing Right Dorsiflexion (L4) 4 Good Left Dorsiflexion (L4) 4 Good PT-OP-Q Treatments Start: 06/01/22 17:38 Freq: Status: Active Protocol: Document 06/15/22 14:30 DCW (Rec: 06/15/22 15:16 DCW [id number]) Cardio Equipment Recumbent Elliptical (Biodex) Duration (Minutes) 5 Resistance 5 Seat Position 7 Gym Equipment Shuttle Recovery Unilateral Squats Resistance 37# Bilateral Squats Resistance 75# Shuttle Balance Red Details WBOS (EO/EC), Staggered Therapeutic Exercises Standing Exercises Hip Extension Standing Exercise Name Hip Extension Side bilateral Resistance Green Other Exercises Resisted Ambulation Other Exercise Name Resisted side-stepping Resistance Green Neuro Re-Education Treatment Balance Activities SLS Details SLS Equipment @rail Foam Stance Details NBOS Surface Blue Foam Tandem Stance Details Tandem Stance Equipment // bars Comments Horizontal/vertical head turns PT-OP-T Assessment and Plan Start: 06/01/22 17:38 Freq: Status: Active Protocol: Document 06/15/22 14:30 DCW (Rec: 06/15/22 15:16 DCW [id number]) Physical Therapy Assessment Impairments Impairments Activity Tolerance,Balance, Functional Activities, Functional Mobility,Strength Goals Three Impairment Pt shows significant LE weakness bilaterally, right worse than left Cylinder Handler Goal (LTG) Pt to increase bilateral LE MMT to at least 4-/5 in all planes in order to improve activity tolerance and dynamic stability. LTG Duration 08/30/22 Two Impairment Pt scores at an increased falls risk, per DGI () Cylinder Handler Goal (LTG) Pt to increase DGI score by at least 5 points to in order to exhibit a decrease in falls risk. LTG Duration 08/30/22 One Impairment Pt does not have an appropriate home exercise program Short Term Goal (STG) Pt to be independent and compliant with an appropriate HEP STG Duration 07/01/22 Assessment Summary Assessment Pt continues to fatigue during PT sessions fairly quickly, but is demonstrating improved recovery after short rest breaks. Physical Therapy Plan Frequency and Duration Frequency of Treatment 2x/Week Plan of Care Start Date 06/01/22 Plan of Care End Date 08/30/22 Therapeutic Interventions Therapeutic Interventions Balance Training,Gait Training ,Home Exercise Program,Manual Therapy,Neuromuscular Re- education,Patient/Caregiver Education,Self-Care/Home Management,Soft Tissue Mobilization,Therapeutic Activities,Therapeutic Exercises Next Visit Focus/Plan Next Note Type Treatment Note Next Visit Plan Balance training, gait, LE strengthening, improving activity tolerance
--- NOTE | 2022-06-17 16:01 | PT.OTN ---
Current Diagnoses Unsteadiness on feet (06/17/22) Other abnormalities of gait and mobility (06/17/22) Weakness (06/17/22) Physical Therapy Treatment Note PT-OP-A Visit Information Start: 06/01/22 17:38 Freq: Status: Active Protocol: Document 06/17/22 15:15 DCW (Rec: 06/17/22 16:01 DCW [id number]) Out-Patient Physical Therapy Visit Information Visit Information Visit Type Treatment Note Visit Start Time 15:15 Visit Stop Time 16:00 Total Visit Minutes 45 Visit Number 6 Number of RETIREMENT PLAN SPECIALIST Visits 0 Evaluation Information Evaluation Date 06/01/22 PT-OP-B Current Condition Start: 06/01/22 17:38 Freq: Status: Active Protocol: Document 06/01/22 16:00 DCW (Rec: 06/01/22 17:54 DCW [id number]) Current Condition History of Current Condition Onset Date ~7 month history Current Complaints Weakness, worsening balance, poor activity tolerance History of Current Condition Pt is a 87 year old female presenting with a 7 month history of worsening deconditioning and weakness. Pt Underwent a R mastectomy in October last year, and unfortunately, after returning home, began hemorrhaging and needed to get back into the hospital and underwent a second surgery on the same day . Pt was in the hospital then for an additional three days, and then moved to a SNF for two weeks. Since this time, pt has been having worsening activity tolerance, gait, and balance. Pt admits that she has not been very active recently, but has recently been getting out and walking ~ 8 blocks with her . Pt notes she typically uses a walking stick for community ambulation. Has recently been diagnosed with DM II, and has significant loss of sensation in her toes. Pt reports that she has been having trouble standing up from sitting, and I need to pause and get my bearings before I start to try to walk. Treatment Goals Patient/Caregiver Goals Decrease falls risk and improve strength PT-OP-C Subjective Start: 06/01/22 17:38 Freq: Status: Active Protocol: Document 06/17/22 15:15 DCW (Rec: 06/17/22 16:01 DCW [id number]) OP-PT Subjective Patient Comments Patient Comments I don't think I'll get any better than this. My balance and dizziness is better, I'm just so tired. PT-OP-D Balance Start: 06/01/22 17:38 Freq: Status: Active Protocol: Document 06/01/22 16:00 DCW (Rec: 06/01/22 17:54 DCW [id number]) OP-PT Balance Assessment Sitting Balance Static Sitting Balance Ability Normal Standing Balance Static Standing Balance Ability Good Dynamic Standing Balance Ability Fair Balance Tests Lozano Balance Test Lozano Balance Test Score 44/56 Lozano Impairment Rating 20 to 39% Impaired (Score 34- 44) Lozano Balance Assessment Evaluation Sitting to Standing Ability Independent w/out Hands Unsupported Stance Safely- 2 minutes Sitting Unsupported, Feet on Floor Safely- 2 minutes Standing to Sitting Ability Safely, Minimal Hand Use Transfer Ability Safely, Minimal Hand Use Unsupported Stance- Eyes Closed Safely, 10 seconds Unsupported Stance- Eyes Open Supervision to maintain Reaching Forward Standing Safely, 5 inches Pick- Up Object From Floor Supervision Look Behind Shoulder - Standing Turns Sideways Only Turning 360 Degrees Turns slowly, but safely Unsupported Stance, Alternating Feet on 4 Steps w/Supervision Stair Unsupported Tandem Stance Holds Tandem- 30 seconds Unilateral Leg Stance Lifts Leg/Holds > 3 secs Total Score Lozano Total Score (out of 56 points) 44 Lozano Impairment Rating 20 to 39% Impaired (Score 34- 44) De Fall Scale Copyright Permission PT-OP-E Functional Tests Start: 06/01/22 17:38 Freq: Status: Active Protocol: Document 06/01/22 16:00 DCW (Rec: 06/01/22 17:54 [facility] [id number]) Functional Tests Dynamic Gait Index (DGI) Score 15/24 DGI Impairment Rating 20 to <40% Impaired (Score 15- 19) Timed Up and Go (TUG) Score 11.11 Comments Three-trial average (12.13, 11 .05, 10.14) TUG Impairment Rating 1 to <20% Impaired (Score 11) PT-OP-M Strength Start: 06/01/22 17:38 Freq: Status: Active Protocol: Document 06/01/22 16:00 DCW (Rec: 06/01/22 17:54 DCW [id number]) Hip Strength Hip Manual Muscle Testing Right Flexion (L2) 3 Fair Abduction 3 Fair Adduction 4- Good- External Rotation 4 Good Internal Rotation 4 Good Left Flexion (L2) 4- Good- Abduction 3+ Fair+ Adduction 4- Good- External Rotation 4+ Good+ Internal Rotation 4+ Good+ Knee Strength Knee Manual Muscle Testing Right Flexion (S2) 4 Good Extension (L3) 4+ Good+ Left Flexion (S2) 4- Good- Extension (L3) 3+ Fair+ Ankle/Foot Strength Ankle and Foot Manual Muscle Testing Right Dorsiflexion (L4) 4 Good Left Dorsiflexion (L4) 4 Good PT-OP-Q Treatments Start: 06/01/22 17:38 Freq: Status: Active Protocol: Document 06/17/22 15:15 DCW (Rec: 06/17/22 16:01 DCW [id number]) Cardio Equipment Recumbent Elliptical (Biodex) Duration (Minutes) 5 Resistance 5 Seat Position 7 Gym Equipment Shuttle Recovery Unilateral Squats Resistance 37# Bilateral Squats Resistance 75# Shuttle Balance Red Details WBOS (EO/EC), Staggered Therapeutic Exercises Standing Exercises Toe-taps Standing Exercise Name Cross-body cone toe-taps Side bilateral Resistance 5# Hamstring curls Standing Exercise Name HS Curls Side bilateral Resistance 5# Neuro Re-Education Treatment Balance Activities SLS Details SLS Equipment @rail Foam Stance Details NBOS Surface Blue Foam Tandem Stance Details Tandem Stance Equipment // bars Comments Horizontal/vertical head turns PT-OP-T Assessment and Plan Start: 06/01/22 17:38 Freq: Status: Active Protocol: Document 06/17/22 15:15 DCW (Rec: 06/17/22 16:01 DCW [id number]) Physical Therapy Assessment Impairments Impairments Activity Tolerance,Balance, Functional Activities, Functional Mobility,Strength Goals Three Impairment Pt shows significant LE weakness bilaterally, right worse than left It Field Technician Goal (LTG) Pt to increase bilateral LE MMT to at least 4-/5 in all planes in order to improve activity tolerance and dynamic stability. LTG Duration 08/30/22 Two Impairment Pt scores at an increased falls risk, per DGI () Care Home Goal (LTG) Pt to increase DGI score by at least 5 points to in order to exhibit a decrease in falls risk. LTG Duration 08/30/22 One Impairment Pt does not have an appropriate home exercise program Short Term Goal (STG) Pt to be independent and compliant with an appropriate HEP STG Duration 07/01/22 Assessment Summary Assessment Likely progressing toward discharge, most initial complaints have improved quite a bit, largely just limited by fatigue following her surgery, then hemorrhage, and second surgery. Physical Therapy Plan Frequency and Duration Frequency of Treatment 2x/Week Plan of Care Start Date 06/01/22 Plan of Care End Date 08/30/22 Therapeutic Interventions Therapeutic Interventions Balance Training,Gait Training ,Home Exercise Program,Manual Therapy,Neuromuscular Re- education,Patient/Caregiver Education,Self-Care/Home Management,Soft Tissue Mobilization,Therapeutic Activities,Therapeutic Exercises Next Visit Focus/Plan Next Note Type Treatment Note Next Visit Plan Balance training, gait, LE strengthening, improving activity tolerance
--- NOTE | 2022-06-24 15:10 | PT.OTN ---
Current Diagnoses Unsteadiness on feet (06/24/22) Other abnormalities of gait and mobility (06/24/22) Weakness (06/24/22) Physical Therapy Treatment Note PT-OP-A Visit Information Start: 06/01/22 17:38 Freq: Status: Active Protocol: Document 06/24/22 14:30 DCW (Rec: 06/24/22 15:10 DCW [id number]) Out-Patient Physical Therapy Visit Information Visit Information Visit Type Treatment Note Visit Start Time 14:30 Visit Stop Time 15:15 Total Visit Minutes 45 Visit Number 7 Number of WOOD SHINGLE ROOFER Visits 0 Evaluation Information Evaluation Date 06/01/22 PT-OP-B Current Condition Start: 06/01/22 17:38 Freq: Status: Active Protocol: Document 06/01/22 16:00 DCW (Rec: 06/01/22 17:54 DCW [id number]) Current Condition History of Current Condition Onset Date ~7 month history Current Complaints Weakness, worsening balance, poor activity tolerance History of Current Condition Pt is a 87 year old female presenting with a 7 month history of worsening deconditioning and weakness. Pt Underwent a R mastectomy in October last year, and unfortunately, after returning home, began hemorrhaging and needed to get back into the hospital and underwent a second surgery on the same day . Pt was in the hospital then for an additional three days, and then moved to a SNF for two weeks. Since this time, pt has been having worsening activity tolerance, gait, and balance. Pt admits that she has not been very active recently, but has recently been getting out and walking ~ 8 blocks with her . Pt notes she typically uses a walking stick for community ambulation. Has recently been diagnosed with DM II, and has significant loss of sensation in her toes. Pt reports that she has been having trouble standing up from sitting, and I need to pause and get my bearings before I start to try to walk. Treatment Goals Patient/Caregiver Goals Decrease falls risk and improve strength PT-OP-C Subjective Start: 06/01/22 17:38 Freq: Status: Active Protocol: Document 06/24/22 14:30 DCW (Rec: 06/24/22 15:10 DCW [id number]) OP-PT Subjective Patient Comments Patient Comments I'm a little wobbly today. PT-OP-D Balance Start: 06/01/22 17:38 Freq: Status: Active Protocol: Document 06/01/22 16:00 DCW (Rec: 06/01/22 17:54 [facility] [id number]) OP-PT Balance Assessment Sitting Balance Static Sitting Balance Ability Normal Standing Balance Static Standing Balance Ability Good Dynamic Standing Balance Ability Fair Balance Tests Lozano Balance Test Lozano Balance Test Score 44/56 Lozano Impairment Rating 20 to 39% Impaired (Score 34- 44) Lozano Balance Assessment Evaluation Sitting to Standing Ability Independent w/out Hands Unsupported Stance Safely- 2 minutes Sitting Unsupported, Feet on Floor Safely- 2 minutes Standing to Sitting Ability Safely, Minimal Hand Use Transfer Ability Safely, Minimal Hand Use Unsupported Stance- Eyes Closed Safely, 10 seconds Unsupported Stance- Eyes Open Supervision to maintain Reaching Forward Standing Safely, 5 inches Pick- Up Object From Floor Supervision Look Behind Shoulder - Standing Turns Sideways Only Turning 360 Degrees Turns slowly, but safely Unsupported Stance, Alternating Feet on 4 Steps w/Supervision Stair Unsupported Tandem Stance Holds Tandem- 30 seconds Unilateral Leg Stance Lifts Leg/Holds > 3 secs Total Score Lozano Total Score (out of 56 points) 44 Lozano Impairment Rating 20 to 39% Impaired (Score 34- 44) De Fall Scale Copyright Permission PT-OP-E Functional Tests Start: 06/01/22 17:38 Freq: Status: Active Protocol: Document 06/01/22 16:00 DCW (Rec: 06/01/22 17:54 [facility] [id number]) Functional Tests Dynamic Gait Index (DGI) Score 15/24 DGI Impairment Rating 20 to <40% Impaired (Score 15- 19) Timed Up and Go (TUG) Score 11.11 Comments Three-trial average (12.13, 11 .05, 10.14) TUG Impairment Rating 1 to <20% Impaired (Score 11) PT-OP-M Strength Start: 06/01/22 17:38 Freq: Status: Active Protocol: Document 06/01/22 16:00 DCW (Rec: 06/01/22 17:54 [facility] [id number]) Hip Strength Hip Manual Muscle Testing Right Flexion (L2) 3 Fair Abduction 3 Fair Adduction 4- Good- External Rotation 4 Good Internal Rotation 4 Good Left Flexion (L2) 4- Good- Abduction 3+ Fair+ Adduction 4- Good- External Rotation 4+ Good+ Internal Rotation 4+ Good+ Knee Strength Knee Manual Muscle Testing Right Flexion (S2) 4 Good Extension (L3) 4+ Good+ Left Flexion (S2) 4- Good- Extension (L3) 3+ Fair+ Ankle/Foot Strength Ankle and Foot Manual Muscle Testing Right Dorsiflexion (L4) 4 Good Left Dorsiflexion (L4) 4 Good PT-OP-Q Treatments Start: 06/01/22 17:38 Freq: Status: Active Protocol: Document 06/24/22 14:30 DCW (Rec: 06/24/22 15:10 DCW [id number]) Cardio Equipment Recumbent Elliptical (Biodex) Duration (Minutes) 5 Resistance 5 Seat Position 7 Gym Equipment Shuttle Recovery Unilateral Squats Resistance 37# Bilateral Squats Resistance 75# Shuttle Balance Red Details WBOS (EO/EC), Staggered Therapeutic Exercises Standing Exercises Hip Extension Standing Exercise Name Hip Extension Side bilateral Resistance Green Toe-taps Standing Exercise Name Cross-body cone toe-taps Side bilateral Resistance 5# Hamstring curls Standing Exercise Name HS Curls Side bilateral Resistance 5# Other Exercises Resisted Ambulation Other Exercise Name Resisted side-stepping Resistance Green Neuro Re-Education Treatment Balance Activities SLS Details SLS Equipment @rail Foam Stance Details NBOS Surface Blue Foam Comments Horizontal/vertical head turns Tandem Stance Details Tandem Stance Equipment // bars PT-OP-T Assessment and Plan Start: 06/01/22 17:38 Freq: Status: Active Protocol: Document 06/24/22 14:30 DCW (Rec: 06/24/22 15:10 DCW [id number]) Physical Therapy Assessment Impairments Impairments Activity Tolerance,Balance, Functional Activities, Functional Mobility,Strength Goals Three Impairment Pt shows significant LE weakness bilaterally, right worse than left Group Home Goal (LTG) Pt to increase bilateral LE MMT to at least 4-/5 in all planes in order to improve activity tolerance and dynamic stability. LTG Duration 08/30/22 Two Impairment Pt scores at an increased falls risk, per DGI () Animal Nutrition Consultant Goal (LTG) Pt to increase DGI score by at least 5 points to in order to exhibit a decrease in falls risk. LTG Duration 08/30/22 One Impairment Pt does not have an appropriate home exercise program Short Term Goal (STG) Pt to be independent and compliant with an appropriate HEP STG Duration 07/01/22 Assessment Summary Assessment Pt will likely discharge following next visit, plan to retest Lozano and DGI, will discuss importance of continued focus on balance challenges at home. Physical Therapy Plan Frequency and Duration Frequency of Treatment 2x/Week Plan of Care Start Date 06/01/22 Plan of Care End Date 08/30/22 Therapeutic Interventions Therapeutic Interventions Balance Training,Gait Training ,Home Exercise Program,Manual Therapy,Neuromuscular Re- education,Patient/Caregiver Education,Self-Care/Home Management,Soft Tissue Mobilization,Therapeutic Activities,Therapeutic Exercises Next Visit Focus/Plan Next Note Type Progress Note Next Visit Plan Prog note, likely discharge
--- NOTE | 2022-06-26 15:02 | PT.OTN ---
Current Diagnoses Unsteadiness on feet (06/26/22) Other abnormalities of gait and mobility (06/26/22) Weakness (06/26/22) Physical Therapy Treatment Note PT-OP-A Visit Information Start: 06/01/22 17:38 Freq: Status: Active Protocol: Document 06/26/22 14:30 DCW (Rec: 06/26/22 15:02 DCW [id number]) Out-Patient Physical Therapy Visit Information Visit Information Visit Type Discharge Summary Visit Start Time 14:30 Visit Stop Time 15:00 Total Visit Minutes 30 Visit Number 8 Number of WORK FROM HOME Visits 0 Evaluation Information Evaluation Date 06/01/22 PT-OP-B Current Condition Start: 06/01/22 17:38 Freq: Status: Active Protocol: Document 06/01/22 16:00 DCW (Rec: 06/01/22 17:54 DCW [id number]) Current Condition History of Current Condition Onset Date ~7 month history Current Complaints Weakness, worsening balance, poor activity tolerance History of Current Condition Pt is a 87 year old female presenting with a 7 month history of worsening deconditioning and weakness. Pt Underwent a R mastectomy in October last year, and unfortunately, after returning home, began hemorrhaging and needed to get back into the hospital and underwent a second surgery on the same day . Pt was in the hospital then for an additional three days, and then moved to a SNF for two weeks. Since this time, pt has been having worsening activity tolerance, gait, and balance. Pt admits that she has not been very active recently, but has recently been getting out and walking ~ 8 blocks with her . Pt notes she typically uses a walking stick for community ambulation. Has recently been diagnosed with DM II, and has significant loss of sensation in her toes. Pt reports that she has been having trouble standing up from sitting, and I need to pause and get my bearings before I start to try to walk. Treatment Goals Patient/Caregiver Goals Decrease falls risk and improve strength PT-OP-C Subjective Start: 06/01/22 17:38 Freq: Status: Active Protocol: Document 06/26/22 14:30 DCW (Rec: 06/26/22 15:02 DCW [id number]) OP-PT Subjective Patient Comments Patient Comments Pt feels she is doing very well, happy with her overall progress. PT-OP-D Balance Start: 06/01/22 17:38 Freq: Status: Active Protocol: Document 06/26/22 14:30 DCW (Rec: 06/26/22 14:55 DCW [id number]) OP-PT Balance Assessment Sitting Balance Static Sitting Balance Ability Normal Dynamic Sitting Balance Ability Normal Standing Balance Static Standing Balance Ability Normal Dynamic Standing Balance Ability Good Balance Tests Lozano Balance Test Lozano Balance Test Score 53/56 Lozano Balance Assessment Evaluation Sitting to Standing Ability Independent w/out Hands Unsupported Stance Safely- 2 minutes Sitting Unsupported, Feet on Floor Safely- 2 minutes Standing to Sitting Ability Safely, Minimal Hand Use Transfer Ability Safely, Minimal Hand Use Unsupported Stance- Eyes Closed Safely, 10 seconds Unsupported Stance- Eyes Open Independent, 1 minute Reaching Forward Standing Confidently, 10 inches Pick- Up Object From Floor Independent/Safe Look Behind Shoulder - Standing Shifts Weight Well Turning 360 Degrees Turns Bilateral, < 4 secs Unsupported Stance, Alternating Feet on (I)- 8 Steps in 20 secs Stair Unsupported Tandem Stance Holds Tandem- 30 seconds Unilateral Leg Stance Lifts Leg/Holds > 3 secs Total Score Lozano Total Score (out of 56 points) 53 Lozano Impairment Rating 1 to 19% Impaired (Score 45-55 ) De Fall Scale Copyright Permission PT-OP-E Functional Tests Start: 06/01/22 17:38 Freq: Status: Active Protocol: Document 06/26/22 14:30 DCW (Rec: 06/26/22 14:55 DCW [id number]) Functional Tests Dynamic Gait Index (DGI) Score 21/24 DGI Impairment Rating 1 to <20% Impaired (Score 20- 23) PT-OP-M Strength Start: 06/01/22 17:38 Freq: Status: Active Protocol: Document 06/26/22 14:30 DCW (Rec: 06/26/22 14:55 DCW [id number]) Hip Strength Hip Manual Muscle Testing Right Flexion (L2) 4 Good Abduction 4 Good Adduction 4 Good External Rotation 4+ Good+ Internal Rotation 4+ Good+ Left Flexion (L2) 4+ Good+ Abduction 4+ Good+ Adduction 4+ Good+ External Rotation 4+ Good+ Internal Rotation 4+ Good+ Knee Strength Knee Manual Muscle Testing Right Flexion (S2) 5 Normal Extension (L3) 5 Normal Left Flexion (S2) 5 Normal Extension (L3) 5 Normal Ankle/Foot Strength Ankle and Foot Manual Muscle Testing Right Dorsiflexion (L4) 4+ Good+ Left Dorsiflexion (L4) 4+ Good+ PT-OP-Q Treatments Start: 06/01/22 17:38 Freq: Status: Active Protocol: Document 06/26/22 14:30 DCW (Rec: 06/26/22 15:02 DCW [id number]) Neuro Re-Education Treatment Other Activities Testing Details Lozano, DGI PT-OP-T Assessment and Plan Start: 06/01/22 17:38 Freq: Status: Active Protocol: Document 06/26/22 14:30 DCW (Rec: 06/26/22 15:02 DCW [id number]) Physical Therapy Assessment Impairments Impairments Activity Tolerance,Balance, Functional Activities, Functional Mobility,Strength Goals Three Impairment Pt shows significant LE weakness bilaterally, right worse than left Alf Goal (LTG) Pt to increase bilateral LE MMT to at least 4-/5 in all planes in order to improve activity tolerance and dynamic stability. LTG Duration Met Two Impairment Pt scores at an increased falls risk, per DGI (15) Alf Goal (LTG) Pt to increase DGI score by at least 5 points to 20/24 in order to exhibit a decrease in falls risk. LTG Duration Met One Impairment Pt does not have an appropriate home exercise program Short Term Goal (STG) Pt to be independent and compliant with an appropriate HEP STG Duration Met Assessment Summary Assessment Pt doing very well, has made phenomenal progress since initial evaluation. DGI improved from 15/24->21/24, and Lozano from 44/56 to 53/56. Pt scores higher than average for age group, is very happy with current level of function . Pt appropriate for discharge from skilled therapy at this time. Physical Therapy Plan Frequency and Duration Frequency of Treatment 2x/Week Plan of Care Start Date 06/01/22 Plan of Care End Date 08/30/22 Therapeutic Interventions Therapeutic Interventions Balance Training,Gait Training ,Home Exercise Program,Manual Therapy,Neuromuscular Re- education,Patient/Caregiver Education,Self-Care/Home Management,Soft Tissue Mobilization,Therapeutic Activities,Therapeutic Exercises Discharge Physical Therapy Discharge Reasons Goals Met Next Visit Focus/Plan Next Note Type Discharge Summary
== END 2022-06-30 12:49 | disposition home or self-care (01) ==
LOC: PHYS 14:30
PROVIDERS: Family Provider Family Medicine; PCP Family Medicine; Referring Provider Family Medicine; Visit Provider Family Medicine
DX: R26.81 Unsteadiness on feet (principal); R53.1 Weakness; R26.89 Other abnormalities of gait and mobility
CPT/HCPCS: 97110; 97112; 97162

== ENCOUNTER → 2022-07-29 10:52 | Outpatient (CLI) | payer MEDICARE, OTHER, SELFPAY ==
[2021-12-19 10:59] VITALS: BMI 32.2
--- NOTE | 2022-08-20 05:47 | DIAB.MNTFU ---
Follow-up Diabetes Medical Nutrition Therapy Assessment Name: Krupa Solis Date: 07/29/22 Time: Dx: Type II Diabetes Krupa presents for DM follow-up. Reports making diet changes, including improved meal timing, increased water intake, and being mindful of CHO portions. Not currently taking Metformin due to GI upset. Rx for 1000mg XR. Diet Recall: 7a: egg, rice cake, 4oz OJ or fruit 12p: veggies, sweet potato x 1/2, protein, dessert x 1/2c ie ice cream at 20g CHO 6p: rice cake with PB +/- fruit 3p: +/- fruit or rice cake with butter 10p: 1-2 pieces of red licorice Beverages; 5c water. 1c tea and +/- 1c coffee Anthropometrics: Ht: 66 Wt: 184# reported Physical Activity: walked 1x last week and bike 2x since last visit. More gardening. Diabetes Medications: 1000 mg Metformin XR daily (not taking- was taking half) Pertinent Labs: hgA1c 6.6% 04/2022 Past Medical History: (Last Updated 05/04/22 @ 13:18 by Kasey Castaneda DO) Benign essential HTN Elevated cholesterol Encounter for annual wellness visit (AWV) in Medicare patient History of unsteady gait Lipoma of breast No significant medical problems Peripheral neuropathy Type 2 diabetes mellitus with complication, without long-term current use of insulin Nutrition Rx: Plate Method Nutrition Diagnosis: - Food and nutrition related knowledge deficit r/t new dx T2DM aeb HgA1c 6.6% Intervention: This participant was very receptive. Provided appropriate educational handouts. Discussed the following topics: Blood sugar review and trends. Impact of food intake on results. Plate Method, impact of macronutrients on blood sugar, meal timing, carbohydrate counting, pairing macronutrients and spreading out carbohydrates for better blood glucose management Heart health nutrition: fats, fiber, and sodium Eating out and grocery shopping tips Meal planning and carb counting review Physical activity plan and progress Created SMART goals for patient self-care and success. Goals: Make dental appt- in progress Move snack to 3p- met Aim for 5-6c water- met Stationary bike 2-3x per week- in progress Try low carb wrap- in progress Avoid juice- new Try Metformin XR HS- new walk 3x per week - new Follow-up: RDN [facility] follow-up prn Suzy Blackburn RDN, [place] Certified Diabetes Care and [employer]izer [place] P: [phone] Thank you for this referral
== END ==
PROVIDERS: Family Provider Family Medicine; PCP Family Medicine; Referring Provider Family Medicine; Visit Provider Family Medicine
DX: E11.9 Type 2 diabetes mellitus without complications (principal); Z79.84 Long term (current) use of oral hypoglycemic drugs; Z71.3 Dietary counseling and surveillance
CPT/HCPCS: 97803

== ENCOUNTER → 2022-08-20 08:54 | Outpatient (CLI) | payer MEDICARE, OTHER, SELFPAY ==
[2021-12-19 10:59] VITALS: BMI 32.2
[2022-08-21 03:05] LABS: Labcorp Hemoglobin (Hb) A1c 6.4 % (4.8-5.6)
== END ==
PROVIDERS: Family Provider Family Medicine; PCP Family Medicine; Referring Provider Family Medicine; Visit Provider Family Medicine
DX: E11.8 Type 2 diabetes mellitus with unspecified complications (principal)
CPT/HCPCS: 36415; 83036

== ENCOUNTER 2022-08-27 10:46 | Emergency (ER) | payer MEDICARE, OTHER, SELFPAY ==
[2021-12-19 10:59] VITALS: BMI 32.2
[2022-08-27] VITALS (19 sets, daily range): BP systolic 134–207; BP diastolic 61–117; PULSE 62–102; RESP 11–26; TEMP 36.9; O2SAT 92–97; BMI 29.8
--- NOTE | 2022-08-27 10:52 | DI.RAD.S_ITS ---
PROCEDURE: XR KNEE RT 3V INDICATIONS: pain TECHNIQUE: 3 views of the knee were acquired. COMPARISON: [facility], , KNEE 3V LEFT, 11/14/2010, 14:43. FINDINGS: Bones: No fractures or dislocations. No suspicious bony lesions. Soft tissues: No joint effusion. No suspicious soft tissue calcifications. IMPRESSION: No evidence acute bony abnormality. If clinical suspicion and/or symptoms persist, further assessment with repeat plain films, or advanced imaging (e.g., CT, MRI, or bone scan) may be helpful for further assessment. Dictated by: Ethan Tidwell M.D. on 08/27/2022 at 11:58 Approved by: Ethan Tidwell M.D. on 08/27/2022 at 11:58
--- NOTE | 2022-08-27 10:52 | DI.RAD.S_ITS ---
PROCEDURE: XR CHEST 1V INDICATIONS: chest pain TECHNIQUE: One view of the chest was acquired. COMPARISON: [facility], SHAYY, XR CHEST FOR PICC 1V, 11/20/2021, 19:02. FINDINGS: Surgical changes and devices: None. Lungs and pleura: Patchy bibasilar atelectasis versus scarring. No pleural effusions or pneumothorax. Mediastinum: Mediastinal contours appear normal. Heart size is normal. Bones and chest wall: No suspicious bony lesions. Overlying soft tissues appear unremarkable. IMPRESSION: Patchy bibasilar atelectasis versus scarring. Dictated by: Ethan Tidwell M.D. on 08/27/2022 at 11:56 Approved by: Ethan Tidwell M.D. on 08/27/2022 at 11:58
--- NOTE | 2022-08-27 10:56 | ED.LOWEXIN ---
HPI - Extremity Injury (Lower) General Chief Complaint: Extremity Injury, Lower Stated Complaint: Rt. Knee tenderness Time Seen by Provider: 08/27/22 10:52 History of Present Illness HPI Narrative: Patient 87-year-old female with history of newly diagnosed diabetes started on metformin, hypertension hyperlipidemia presenting today with sudden onset right knee pain. She reports that either getting up or sitting down from the toilet she heard a pop and has right knee pain. She is unable to weightbear. She is able to flex and extend at her knee no numbness tingling or weakness. She also reports that she is having some palpitations she does not really have chest pain. She says she does get some palpitations when she feels anxious like she does now. No significant shortness of breath but she is having some which she can not really describe. She reports having diarrhea after starting metformin. She is not had any fevers chills. She is no abdominal pain. No painful or frequent urination. Related Data Home Medications Medication Instructions Recorded Confirmed aspirin 81 mg chewable tablet 81 mg PO BEDTIME 12/04/19 06/18/22 hydrochlorothiazide 25 mg tablet 25 mg PO QNOON 12/04/19 08/27/22 losartan 100 mg tablet 100 mg PO QNOON 12/04/19 08/27/22 ascorbic acid (vitamin C) 500 mg 500 mg PO DAILY 01/01/22 06/18/22 tablet (Vitamin C) calcium 1 tab PO BID 01/01/22 06/18/22 carbonate,citrate-magnesium oxide 200 mg calcium-50 mg tablet cholecalciferol (vitamin D3) 50 50 mcg PO DAILY 01/01/22 06/18/22 mcg (2,000 unit) capsule (Vitamin D3) [id number] 1 tab PO DAILY 01/01/22 06/18/22 tablet (Multivitamin 50 Plus tablet) vitamin B complex 1 cap PO DAILY 01/01/22 06/18/22 Previous Rx's Medication Instructions Recorded acetaminophen 325 mg capsule 650 mg PO QID PRN pain #60 caps 10/24/21 (Tylenol) amlodipine 10 mg tablet (Norvasc) 10 mg PO DAILY blood pressure #90 05/04/22 tabs metformin 500 mg tablet,extended 1,000 mg PO DAILY blood sugars 05/04/22 release 24 hr #180 tabs lovastatin 40 mg tablet See Rx Instructions .Route 08/24/22 .COMPLEX #100 tabs Allergies Allergy/AdvReac Type Severity Reaction Status Date / Time No Known Drug Allergies Allergy Verified 06/18/22 10:14 Review of Systems Review of Systems ROS Unobtainable: All systems reviewed & are unremarkable except as noted in HPI and below Patient History Medical History Benign essential HTN Elevated cholesterol Encounter for annual wellness visit (AWV) in Medicare patient History of unsteady gait Lipoma of breast No significant medical problems Peripheral neuropathy Type 2 diabetes mellitus with complication, without long-term current use of insulin Surgical History History of lumpectomy of right breast (10/24/21) Social History household members: spouse Smoking Status: Former smoker alcohol intake: never Smoking Status: Former smoker alcohol intake frequency: 0-2 drinks per day Substance Use Type: does not use Exam Initial Vital Signs Initial Vital Signs: Vital Signs Pulse Oximetry 92 08/27/22 10:53 GENERAL: Alert pleasant 87-year-old HEENT: Head atraumatic,EOMI, pupils reactive, face symmetric, moist mucous membranes CARDIOVASCULAR: Regular rate and rhythm without murmurs, rubs or gallops. RESPIRATORY: Breath sounds equal bilaterally, no wheezes rales or rhonchi. ABDOMEN: Soft, nontender. Normoactive bowel sounds all 4 quadrants. No guarding or rebound. EXTREMITIES: Normal range of motion, no clubbing or edema. Neurovascularly intact Right knee able to flex and then distal pedal pulse intact knee is stable and posterior drawer test negative negative valgus varus test NEUROLOGICAL: Alert and oriented x4. SKIN: Warm, dry, no laceration, no petechiae, no rashes or lesions. Course Orders Ordered: ED Orders 08/27/22 10:52 XR chest 1V Stat XR knee RT 3V Stat 08/27/22 10:56 Complete Blood Count AUTO DIFF Stat Comprehensive Metabolic Panel Stat Lipase Stat Troponin & CK Cardiac Panel Stat 08/27/22 11:23 EKG-12 Lead Stat 08/27/22 12:27 Urine Microscopic Stat Discontinued Medications Hydrochlorothiazide (Hydrochlorothiazide 25 Mg Tablet) 25 mg PO NOW ONE Stop: 08/27/22 11:25 Last Admin: 08/27/22 11:39 Dose: 25 mg Documented By: RB Ketorolac Tromethamine (Ketorolac 30 Mg/Ml Vial) 15 mg IV NOW ONE Stop: 08/27/22 13:56 Last Admin: 08/27/22 14:02 Dose: 15 mg Documented By: RB Losartan Potassium (Losartan 50 Mg Tablet) 100 mg PO NOW ONE Stop: 08/27/22 11:25 Last Admin: 08/27/22 11:39 Dose: 100 mg Documented By: RB Vital Signs Vital signs: Vital Signs - 8 hr 08/27/22 11:04 08/27/22 11:05 08/27/22 11:05 Temperature 98.4 F Pulse Rate 72 102 H Pulse Rate [Right Dorsalis Pedis] Respiratory Rate 23 11 L Blood Pressure 207/95 H 188/87 H Pulse Oximetry 97 97 Oxygen Delivery Method Room Air 08/27/22 11:12 08/27/22 11:39 08/27/22 11:16 Temperature Pulse Rate 86 94 H Pulse Rate [Right Dorsalis Pedis] 97 H Respiratory Rate 20 Blood Pressure 183/117 H Pulse Oximetry 96 Oxygen Delivery Method 08/27/22 11:16 08/27/22 11:45 08/27/22 11:45 Temperature Pulse Rate 89 Pulse Rate [Right Dorsalis Pedis] Respiratory Rate 18 Blood Pressure 183/117 H 170/76 H Pulse Oximetry 96 Oxygen Delivery Method 08/27/22 12:00 08/27/22 12:00 08/27/22 12:16 Temperature Pulse Rate 84 86 Pulse Rate [Right Dorsalis Pedis] Respiratory Rate 15 26 H Blood Pressure 169/78 H Pulse Oximetry 95 95 Oxygen Delivery Method 08/27/22 12:16 08/27/22 12:24 08/27/22 12:24 Temperature Pulse Rate 101 H Pulse Rate [Right Dorsalis Pedis] Respiratory Rate Blood Pressure 160/75 H 152/64 H Pulse Oximetry 95 Oxygen Delivery Method 08/27/22 12:30 08/27/22 12:31 08/27/22 12:31 Temperature Pulse Rate 92 H 91 H Pulse Rate [Right Dorsalis Pedis] Respiratory Rate 20 23 Blood Pressure 169/107 H Pulse Oximetry 97 96 Oxygen Delivery Method 08/27/22 12:46 08/27/22 12:46 08/27/22 13:02 Temperature Pulse Rate 84 93 H Pulse Rate [Right Dorsalis Pedis] Respiratory Rate 19 Blood Pressure 160/74 H Pulse Oximetry 95 Oxygen Delivery Method 08/27/22 13:04 08/27/22 13:04 08/27/22 13:15 Temperature Pulse Rate 94 H 86 Pulse Rate [Right Dorsalis Pedis] Respiratory Rate 23 16 Blood Pressure 134/61 Pulse Oximetry 96 96 Oxygen Delivery Method 08/27/22 13:15 08/27/22 13:30 08/27/22 13:30 Temperature Pulse Rate 82 Pulse Rate [Right Dorsalis Pedis] Respiratory Rate 19 Blood Pressure 156/73 H 164/67 H Pulse Oximetry 92 Oxygen Delivery Method MDM - Extremity Injury (Lower) Lab Data 08/27/22 10:56 08/27/22 10:56 Labs: Lab Results 08/27/22 08/27/22 08/27/22 Range/Units 10:56 10:56 12:27 WBC 11.6 H (4.5-11.0) X10^3/uL RBC 4.27 (4.0-5.2) X10^6/uL Hgb 13.9 (12.0-16.0) g/dL Hct 39.7 (36-46) % MCV 93.0 (80-100) fL MCH 32.5 (26-34) PG MCHC 35.0 (30-36) % RDW 13.1 (11.6-14.8) % Plt Count 260 (150-400) X10^3/uL Neut % (Auto) 51.6 (50-75) % Lymph % (Auto) 39.2 (25-40) % [place] % (Auto) 6.8 (3-14) % Eos % (Auto) 1.7 L (2-4) % Baso % (Auto) 0.7 (0-2) % Neut # (Auto) 6000 (7209-3107) /uL Lymph # (Auto) 4600 H (5675-9378) /uL [place] # (Auto) 800 (0-900) /uL Eos # (Auto) 200 (0-450) /uL Baso # (Auto) 100 (0-100) /uL Sodium 133 L (137-145) mmol/L Potassium 3.7 (3.4-5.1) mmol/L Chloride 98 (98-107) mmol/L Carbon Dioxide 28 (22-32) mmol/L BUN 18 H (7-17) mg/dL Creatinine 0.93 (0.52-1.04) mg/dL Estimated GFR 60 (>60) mL/min BUN/Creatinine Ratio 19.4 (6-22) Glucose 116 H (80-110) mg/dL Calcium 10.0 (8.4-10.2) mg/dL Total Bilirubin 1.0 (0.2-1.3) mg/dL AST 27 (14-36) IU/L ALT 21 (<35) IU/L Alkaline Phosphatase 82 (38-126) U/L Total Creatine Kinase 60 (30-135) U/L CK-MB (CK-2) TNP CK-MB (CK-2) Rel Index TNP Troponin I < 0.012 (0.01-0.034) ng/mL Total Protein 8.0 (6.3-8.2) g/dL Albumin 4.3 (3.5-5.0) g/dL Globulin 3.7 (1.7-4.1) g/dL Albumin/Globulin Ratio 1.2 (1.0-2.8) Lipase 39 (23-300) U/L Urine RBC 0-1/hpf (0-5/HPF) Urine WBC 1-5/hpf (0-5/HPF) Ur Squamous Epith Cells 1-5 /hpf (0-5/HPF) Urine Bacteria Occasional (0-1) (None) Ur Culture Indicated? Cult not indicated Urine Dip Bedside Urine Glucose Negative Bedside Urine Bilirubin - Negative Bedside Urine Ketone - Negative Urine Specific [place] 1.015 Bedside Urine Occult Blood - Negative Bedside Urine pH 6.0 Bedside Urine Protein - Negative Bedside Urine Urobilinogen - Negative Bedside Urine Nitrite - Negative Bedside Urine Leukocytes +/- 15 Esterase Imaging Data Chest x-ray: Radiologist's Impression: PROCEDURE:? XR CHEST 1V ? INDICATIONS:? chest pain ? TECHNIQUE:? One view of the chest was acquired.? ? COMPARISON:? [facility], CR, XR CHEST FOR PICC 1V, 11/20/2021, 19:02. ? FINDINGS:? ? Surgical changes and devices:? None.? ? Lungs and pleura:? Patchy bibasilar atelectasis versus scarring.? No pleural effusions or pneumothorax.? ? Mediastinum:? Mediastinal contours appear normal.? Heart size is normal.? ? Bones and chest wall:? No suspicious bony lesions.? Overlying soft tissues appear unremarkable.? ? IMPRESSION:? Patchy bibasilar atelectasis versus scarring. ? ? Dictated by: Ethan Tidwell M.D. on 08/27/2022 at 11:56 ? ? Approved by: Ethan Tidwell M.D. on 08/27/2022 at 11:58 Extremity x-ray #1: Radiologist's Impression: PROCEDURE:? XR KNEE RT 3V ? INDICATIONS:? pain ? TECHNIQUE:? 3 views of the knee were acquired.? ? COMPARISON:? [facility], , KNEE 3V LEFT, 11/14/2010, 14:43. ? FINDINGS:? ? Bones:? No fractures or dislocations.? No suspicious bony lesions.? ? Soft tissues:? No joint effusion.? No suspicious soft tissue calcifications.? ? ? IMPRESSION:? No evidence acute bony abnormality. ? If clinical suspicion and/or symptoms persist, further assessment with repeat plain films, or advanced imaging (e.g., CT, MRI, or bone scan) may be helpful for further assessment. ? ? ? Dictated by: Ethan Tidwell M.D. on 08/27/2022 at 11:58 ?? ECG Data Interpretation: Bigeminy rate 89 sinus rhythm MS interval 182 QRS [address] changes MDM Narrative Medical decision making narrative: Patient presents with a variety of symptoms mostly her right knee and pain. She is found not to have her fracture most probably a sprain. She is given a knee immobilizer and a walker which she reports she actually has a walker at home and does not want hours. She ambulated without significant help her difficulty. She also was complaining of some chest pain and palpitations. Cardiac workup revealed bigeminy which actually improved and was definitely less frequent while she was here. Blood work does not show significant clinical abnormality. Overall she does not meet any sort of admission criteria she is happy to go home. She is offered something more than Tylenol for pain but declines at this time. Discharge Plan Departure Patient Disposition: Home Clinical Impression: Right knee sprain Instructions: DI for Knee Sprain Activity Restrictions/Additional Instructions: *You have been diagnosed with right knee sprain *What to do: Wear immobilizer as needed while active. Use walker. Weightbear as tolerated. You may require outpatient MRI if still having pain in 2-3 weeks *Continue to take medications as directed Tylenol 650 mg every 4-6 hours if needed for pain *Follow up with your primary care provider in 2-3 days or call [phone] *Return to ER if you should have increasing pain swelling numbness tingling weakness or any new, worsening or concerning symptoms Prescriptions: No Action lovastatin 40 mg tablet See Rx Instructions .ROUTE .COMPLEX Qty: 100 3RF Dose Instruction: TAKE ONE TABLET BY MOUTH NIGHTLY AT BEDTIME Rx Instructions: TAKE ONE TABLET BY MOUTH NIGHTLY AT BEDTIME amlodipine [Norvasc] 10 mg tablet 10 mg PO DAILY Qty: 90 3RF metformin 500 mg tablet extended release 24 hr 1,000 mg PO DAILY Qty: 180 3RF aspirin 81 mg Tablet,Chewable 81 mg PO BEDTIME hydrochlorothiazide 25 mg Tablet 25 mg PO QNOON losartan 100 mg tablet 100 mg PO QNOON ascorbic acid (vitamin C) [Vitamin C] 500 mg Tablet 500 mg PO DAILY vitamin B complex Capsule 1 cap PO DAILY Multivitamin 50 Plus Tablet 1 tab PO DAILY cholecalciferol (vitamin D3) [Vitamin D3] 50 mcg (2,000 unit) Capsule 50 mcg PO DAILY calcium carb and citrat-mag ox 200 mg calcium- 50 mg Tablet 1 tab PO BID acetaminophen [Tylenol] 325 mg capsule 650 mg PO QID PRN (Reason: pain) Qty: 60 0RF Referrals: Kasey Castaneda DO [Primary Care Provider] - Stand Alone Forms: Patient Portal/API
[2022-08-27 11:06] LABS: Add Manual Diff / Slide Review NO; Basophils Absolute Auto 100 /uL (0-100); Basophils Percent Auto 0.7 % (0-2); Eosinophils Absolute Auto 200 /uL (0-450); Eosinophils Percent Auto 1.7 % (2-4); Hematocrit 39.7 % (36-46); Hemoglobin 13.9 g/dL (12.0-16.0); Lymphocytes Absolute Auto 4600 /uL (1100-4500); Lymphocytes Percent Auto 39.2 % (25-40); Mean Corpuscular Hemoglobin 32.5 PG (26-34); Monocytes Absolute Auto 800 /uL (0-900); Monocytes Percent Auto 6.8 % (3-14); Neutrophils Absolute Auto 6000 /uL (1500-7000); Neutrophils Percent Auto 51.6 % (50-75); Platelet Count 260 X10^3/uL (150-400); Red Blood Cell Count 4.27 X10^6/uL (4.0-5.2); Red Cell Distribution Width 13.1 % (11.6-14.8); White Blood Cell Count 11.6 X10^3/uL (4.5-11.0)
[2022-08-27 11:17] LABS: Alanine Aminotransferase 21 IU/L (<35); Albumin 4.3 g/dL (3.5-5.0); Albumin Globulin Ratio 1.2 (1.0-2.8); Alkaline Phosphatase 82 U/L (38-126); Aspartate Aminotransferase 27 IU/L (14-36); BUN Creatinine Ratio 19.4 (6-22); Blood Urea Nitrogen 18 mg/dL (7-17); Carbon Dioxide 28 mmol/L (22-32); Chloride 98 mmol/L (98-107); Creatine Kinase 60 U/L (30-135); Estimated Glomerular Filt Rate 60 mL/min (>60); Globulin 3.7 g/dL (1.7-4.1); Glucose 116 mg/dL (80-110); HEMOLYSIS < 15 (0-50); Lipase 39 U/L (23-300); Potassium 3.7 mmol/L (3.4-5.1); Sodium 133 mmol/L (137-145)
[2022-08-27 11:29] LABS: Troponin I < 0.012 ng/mL (0.01-0.034)
[2022-08-27] MEDS: hydroCHLOROthiazide 25 MG TABLET PO (11:39)
[2022-08-27] MEDS: LOSARTAN 50 MG TABLET 100 MG PO (11:39)
[2022-08-27 12:50] LABS: Bacteria Urine Occasional (0-1); Culture Indicated Urine Cult Not Indicated; RBC Urine 0-1/HPF (0-5/HPF); Squamous Epithelial Cell Urine 1-5 /HPF (0-5/HPF); WBC Urine 1-5/HPF (0-5/HPF)
[2022-08-27] MEDS: KETOROLAC 30 MG/ML VIAL 15 MG IV (14:02)
== END 2022-08-27 14:32 | disposition home or self-care (01) ==
PROVIDERS: Emergency Provider Emergency Medicine; Family Provider Family Medicine; PCP Family Medicine
DX: S83.91XA Sprain of unspecified site of right knee, initial encounter (principal); R07.9 Chest pain, unspecified; X50.1XXA Overexertion from prolonged static or awkward postures, initial encounter
CPT/HCPCS: 36415; 71045; 73562; 80053; 81003; 81015; 82550; 83690; 84484; 85025; 93005; 93010; 96374; 99284; J1885

== ENCOUNTER → 2023-05-03 15:22 | Outpatient (CLI) | payer MEDICARE, OTHER, SELFPAY ==
[2021-12-19 10:59] VITALS: BMI 32.2
[2023-05-03 19:08] LABS: BUN Creatinine Ratio 20.9 (6-22); Blood Urea Nitrogen 28 mg/dL (7-17); Calcium 10.2 mg/dL (8.4-10.2); Carbon Dioxide 25 mmol/L (22-32); Chloride 102 mmol/L (98-107); Estimated Glomerular Filt Rate 38 mL/min (>60); Glucose 119 mg/dL (80-110); HEMOLYSIS < 15 (0-50); Potassium 3.5 mmol/L (3.4-5.1); Sodium 137 mmol/L (137-145)
[2023-05-04 12:02] LABS: Hemoglobin A1C% w Est Avg Glu 6.4 % (4.0-6.0)
== END ==
PROVIDERS: Family Provider Family Medicine; PCP Family Medicine; Referring Provider Family Medicine; Visit Provider Family Medicine
DX: Z00.00 Encounter for general adult medical examination without abnormal findings (principal); E11.42 Type 2 diabetes mellitus with diabetic polyneuropathy; I10 Essential (primary) hypertension
CPT/HCPCS: 36415; 80048; 83036

== ENCOUNTER → 2023-11-03 14:54 | Outpatient (CLI) | payer MEDICARE, OTHER, SELFPAY ==
[2021-12-19 10:59] VITALS: BMI 32.2
[2023-11-03 16:41] LABS: BUN Creatinine Ratio 18.1 (6-22); Blood Urea Nitrogen 21 mg/dL (7-17); Calcium 9.9 mg/dL (8.4-10.2); Carbon Dioxide 25 mmol/L (22-32); Chloride 100 mmol/L (98-107); Estimated Glomerular Filt Rate 46 mL/min (>60); Glucose 139 mg/dL (80-110); HEMOLYSIS < 15 (0-50); Potassium 3.3 mmol/L (3.4-5.1); Sodium 134 mmol/L (137-145)
[2023-11-03 17:44] LABS: Hemoglobin A1C% w Est Avg Glu 6.3 % (4.0-6.0)
== END ==
LOC: LAB 14:56
PROVIDERS: Family Provider Family Medicine; PCP Family Medicine; Referring Provider Family Medicine; Visit Provider Family Medicine
DX: E11.42 Type 2 diabetes mellitus with diabetic polyneuropathy (principal); I10 Essential (primary) hypertension; R41.3 Other amnesia
CPT/HCPCS: 36415; 80048; 83036

== ENCOUNTER 2023-12-27 19:09 | Emergency (ER) | payer MEDICARE, OTHER, SELFPAY ==
[2021-12-19 10:59] VITALS: BMI 32.2
[2023-12-27] VITALS (9 sets, daily range): BP systolic 155–194; BP diastolic 71–85; PULSE 90–115; RESP 18; TEMP 37.1; O2SAT 93–95; BMI 30.4
--- NOTE | 2023-12-27 19:21 | DI.RAD.S_ITS ---
PROCEDURE: XR KNEE LT 3V INDICATIONS: injury TECHNIQUE: 3 views of the knee were acquired. COMPARISON: [facility], CR, XR KNEE RT 3V, 08/27/2022, 10:52. FINDINGS: Bones: No fractures or dislocations. No suspicious bony lesions. Soft tissues: No joint effusion. No suspicious soft tissue calcifications. IMPRESSION: No acute bony abnormality or significant effusion. If symptoms persist with conservative management, consider cross-sectional imaging such as CT or MRI. Approved by: Yue Valle M.D.,Ph.D. on 12/27/2023 at 19:45
--- NOTE | 2023-12-27 20:58 | PC.NURSE ---
Pt declines an ice pack.
--- NOTE | 2023-12-27 21:02 | ED.LOWEXIN ---
HPI - Extremity Injury (Lower) General Chief Complaint: Extremity Injury, Lower Stated Complaint: knee pain Time Seen by Provider: 12/27/23 19:52 Source: patient Mode of arrival: Ambulatory History of Present Illness HPI Narrative: Patient is an 88-year-old female who states that at baseline she has been having some mobility issues recently. Does have lower extremity swelling which is not new. She stated that she was going on a walk with her . She turned to make a corner at the end of the street she heard and felt a pop in her left knee. Since that time she was had quite a bit of discomfort with walking or putting any pressure on the knee. No other injuries from the event. Related Data Home Medications Medication Instructions Recorded Confirmed aspirin 81 mg chewable tablet 81 mg PO BEDTIME 12/04/19 11/03/23 ascorbic acid (vitamin C) 500 mg 500 mg PO DAILY 01/01/22 11/03/23 tablet (Vitamin C) calcium 1 tab PO BID 01/01/22 11/03/23 carbonate,citrate-magnesium oxide 200 mg calcium-50 mg tablet cholecalciferol (vitamin D3) 50 50 mcg PO DAILY 01/01/22 11/03/23 mcg (2,000 unit) capsule (Vitamin D3) [id number] 1 tab PO DAILY 01/01/22 11/03/23 tablet (Multivitamin 50 Plus tablet) vitamin B complex 1 cap PO DAILY 01/01/22 11/03/23 acetaminophen 500 mg tablet 500 mg PO Q6H PRN 10/26/22 11/03/23 (Tylenol Extra Strength) Previous Rx's Medication Instructions Recorded losartan 100 mg tablet 100 mg PO DAILY #90 tabs 01/11/23 amlodipine 10 mg tablet (Norvasc) 10 mg PO DAILY blood pressure #90 05/03/23 tabs chlorthalidone 25 mg tablet 25 mg PO DAILY blood pressure #90 05/03/23 tabs lovastatin 40 mg tablet See Rx Instructions .Route 05/03/23 .COMPLEX #100 tabs metformin 500 mg tablet,extended 250 mg (1/2 x 500 mg) PO DAILY 05/03/23 release 24 hr blood sugars #45 tabs potassium chloride 10 mEq 10 meq PO DAILY #100 tabs 11/04/23 tablet,extended release(part/cryst) hydrocodone 5 mg-acetaminophen 325 1 tab PO Q4-6H PRN pain #10 tabs 12/27/23 mg tablet Allergies Allergy/AdvReac Type Severity Reaction Status Date / Time No Known Drug Allergies Allergy Verified 11/03/23 14:17 Review of Systems Musculoskeletal Musculoskeletal: Reports system reviewed and no additional complaints, except as documented Integumentary/Breasts Skin/Breast: Reports system reviewed and no additional complaints, except as documented Neurologic Neurologic: Reports system reviewed and no additional complaints, except as documented Patient History Medical History CKD (chronic kidney disease) stage 3, GFR 30-59 ml/min Memory change Type 2 diabetes mellitus with peripheral neuropathy History of unsteady gait Type 2 diabetes mellitus with complication, without long-term current use of insulin Encounter for annual wellness visit (AWV) in Medicare patient Benign essential HTN Elevated cholesterol Lipoma of breast No significant medical problems Surgical History History of lumpectomy of right breast (10/24/21) Social History household members: spouse Smoking Status: Former smoker alcohol intake: never Smoking Status: Former smoker alcohol intake frequency: 0-2 drinks per day Substance Use Type: does not use Exam Initial Vital Signs Initial Vital Signs: Vital Signs Pulse Rate 113 H 12/27/23 19:13 Pulse Oximetry 95 12/27/23 19:13 Skin General: no rashes or lesions noted Neuro General: patient alert Extrem Other: Can not reproduce any discomfort with palpation left knee. Patellar tendon/quadriceps tendon is intact. Hamstrings intact. Her left ankle is unremarkable. Left hip is unremarkable. She can bend her knee to approximately 45? when she states she starts to feel discomfort. No effusion noted. Course Orders Ordered: ED Orders 12/27/23 19:21 XR knee LT 3V Stat Discontinued Medications Hydrocodone Bitart/Acetaminophen (Hydrocodone/Acet 5/325 Tablet) 1 tab PO NOW ONE Stop: 12/27/23 21:04 Last Admin: 12/27/23 21:12 Dose: 1 tab Documented By: SB Hydrocodone Bitart/Acetaminophen (Hydrocodone/Acet 5/325 Prepack) 1 bottle MISC DIRECTED ONE Stop: 12/27/23 21:04 Last Admin: 12/27/23 21:12 Dose: 1 bottle Documented By: FRAN Vital Signs Vital signs: Vital Signs - 8 hr 12/27/23 19:13 12/27/23 19:14 12/27/23 19:14 Temperature Pulse Rate 113 H 111 H Respiratory Rate Blood Pressure 171/80 H Pulse Oximetry 95 95 Oxygen Delivery Method 12/27/23 19:18 12/27/23 19:30 12/27/23 19:31 Temperature 98.7 F Pulse Rate 114 H 94 H Respiratory Rate 18 Blood Pressure 171/80 H 155/71 H Pulse Oximetry 95 95 Oxygen Delivery Method Room Air 12/27/23 20:00 12/27/23 20:00 12/27/23 20:30 Temperature Pulse Rate 115 H Respiratory Rate Blood Pressure 162/77 H 169/78 H Pulse Oximetry 95 Oxygen Delivery Method 12/27/23 20:30 12/27/23 21:00 12/27/23 21:00 Temperature Pulse Rate 90 97 H Respiratory Rate Blood Pressure 194/85 H Pulse Oximetry 95 94 Oxygen Delivery Method Room Air 12/27/23 21:13 12/27/23 21:13 Temperature Pulse Rate Respiratory Rate Blood Pressure 183/79 H Pulse Oximetry 93 Oxygen Delivery Method Room Air [facility] - Extremity Injury (Lower) Imaging Data Extremity x-ray #1: Radiologist's Impression: PROCEDURE: XR KNEE LT 3V INDICATIONS: injury TECHNIQUE: 3 views of the knee were acquired. COMPARISON: [facility], SHAYY, XR KNEE RT 3V, 08/27/2022, 10:52. FINDINGS: Bones: No fractures or dislocations. No suspicious bony lesions. Soft tissues: No joint effusion. No suspicious soft tissue calcifications. IMPRESSION: No acute bony abnormality or significant effusion. If symptoms persist with conservative management, consider cross-sectional imaging such as CT or MRI. [facility] Narrative Medical decision making narrative: X-ray shows no signs of fracture. Exam is not consistent with gout or cellulitis or septic joint. I suspect a internal knee derangement such as a meniscus tear. Low suspicion for ACL tear. We did discuss this with the patient. She does have a walker at home that she can use. Will provide symptom control. Discussed other conservative measures and follow-up. She expressed understanding Discharge Plan Departure Patient Disposition: Home Clinical Impression: Knee pain, Knee sprain Instructions: How to Use an Elastic Bandage-Knee Sprain, DI for Knee Sprain, How To Perform RICE (Rest, Ice, Compress, Elevate) Activity Restrictions/Additional Instructions: Your x-ray did not show any signs of a fracture so you can walk on your left leg as tolerated. Use the pain medication as needed. Ice can also be helpful. Recommend you contact your primary doctor for a follow-up. Return to the emergency department for new symptoms. Prescriptions: New hydrocodone-acetaminophen 5-325 mg tablet 1 tab PO Q4-6H PRN (Reason: pain) Qty: 10 0RF No Action losartan 100 mg tablet 100 mg PO DAILY Qty: 90 3RF potassium chloride 10 mEq tablet,ER particles/crystals 10 meq PO DAILY Qty: 100 3RF acetaminophen [Tylenol Extra Strength] 500 mg tablet 500 mg PO Q6H PRN amlodipine [Norvasc] 10 mg tablet 10 mg PO DAILY Qty: 90 3RF chlorthalidone 25 mg tablet 25 mg PO DAILY Qty: 90 3RF lovastatin 40 mg tablet See Rx Instructions .ROUTE .COMPLEX Qty: 100 3RF Dose Instruction: TAKE ONE TABLET BY MOUTH NIGHTLY AT BEDTIME Rx Instructions: TAKE ONE TABLET BY MOUTH NIGHTLY AT BEDTIME metformin 500 mg tablet extended release 24 hr 250 mg PO DAILY Qty: 45 3RF aspirin 81 mg Tablet,Chewable 81 mg PO BEDTIME ascorbic acid (vitamin C) [Vitamin C] 500 mg Tablet 500 mg PO DAILY vitamin B complex Capsule 1 cap PO DAILY Multivitamin 50 Plus Tablet 1 tab PO DAILY cholecalciferol (vitamin D3) [Vitamin D3] 50 mcg (2,000 unit) Capsule 50 mcg PO DAILY calcium carb and citrat-mag ox 200 mg calcium- 50 mg Tablet 1 tab PO BID Referrals: Kasey Castaneda DO [Primary Care Provider] - Stand Alone Forms: Patient Portal/API/Survey
[2023-12-27] MEDS: HYDROCODONE/ACET 5/325 PREPACK 1 BOTTLE MISC (21:12)
[2023-12-27] MEDS: HYDROCODONE/ACET 5/325 TABLET 1 TAB PO (21:12)
== END 2023-12-27 21:24 | disposition home or self-care (01) ==
PROVIDERS: Emergency Provider Emergency Medicine; Family Provider Family Medicine; PCP Family Medicine
DX: S83.92XA Sprain of unspecified site of left knee, initial encounter (principal); M25.562 Pain in left knee
CPT/HCPCS: 73562; 99283

== ENCOUNTER → 2024-05-29 08:06 | Outpatient (CLI) | payer MEDICARE, OTHER, SELFPAY ==
[2021-12-19 10:59] VITALS: BMI 32.2
[2024-05-29 08:37] LABS: Add Manual Diff / Slide Review NO; Basophils Absolute Auto 100 /uL (0-100); Basophils Percent Auto 1.1 % (0-2); Eosinophils Absolute Auto 200 /uL (0-450); Eosinophils Percent Auto 2.4 % (2-4); Hematocrit 41.5 % (36-46); Hemoglobin 14.4 g/dL (12.0-16.0); Lymphocytes Absolute Auto 3000 /uL (1100-4500); Lymphocytes Percent Auto 32.2 % (25-40); Mean Corpuscular HGB Conc 34.7 % (30-36); Mean Corpuscular Hemoglobin 32.8 PG (26-34); Mean Corpuscular Volume 94.6 fL (80-100); Monocytes Absolute Auto 600 /uL (0-900); Monocytes Percent Auto 6.8 % (3-14); Neutrophils Absolute Auto 5400 /uL (1500-7000); Neutrophils Percent Auto 57.5 % (50-75); Platelet Count 285 X10^3/uL (150-400); Red Blood Cell Count 4.39 X10^6/uL (4.0-5.2); Red Cell Distribution Width 13.2 % (11.6-14.8); White Blood Cell Count 9.4 X10^3/uL (4.5-11.0)
[2024-05-29 08:50] LABS: Alanine Aminotransferase 21 IU/L (<35); Albumin 4.2 g/dL (3.5-5.0); Albumin Globulin Ratio 1.3 (1.0-2.8); Alkaline Phosphatase 80 U/L (38-126); Aspartate Aminotransferase 28 IU/L (14-36); Bilirubin Total 0.9 mg/dL (0.2-1.3); Blood Urea Nitrogen 15 mg/dL (7-17); Carbon Dioxide 23 mmol/L (22-32); Chloride 103 mmol/L (98-107); Cholesterol 208 mg/dL (140-199); Estimated Glomerular Filt Rate 58 mL/min (>60); Globulin 3.2 g/dL (1.7-4.1); Glucose 137 mg/dL (80-110); HDL Cholesterol 64 mg/dL (40-60); HEMOLYSIS < 15 (0-50); LDL Cholesterol Calculated 116 mg/dL (<100); Potassium 3.9 mmol/L (3.4-5.1); Sodium 138 mmol/L (137-145); Total Protein 7.4 g/dL (6.3-8.2); Triglycerides 140 mg/dL (35-150)
[2024-05-29 09:21] LABS: TSH w/ Reflex to FT4 3.29 uIU/mL (0.47-4.68)
== END ==
PROVIDERS: Family Provider Family Medicine; PCP Family Medicine; Referring Provider Family Medicine; Visit Provider Family Medicine
DX: I10 Essential (primary) hypertension (principal); E11.42 Type 2 diabetes mellitus with diabetic polyneuropathy; N18.30 Chronic kidney disease, stage 3 unspecified
CPT/HCPCS: 36415; 80053; 80061; 83036; 84443; 85025

== ENCOUNTER → 2024-11-21 14:00 | Outpatient (CLI) | payer MEDICARE, OTHER, SELFPAY ==
[2021-12-19 10:59] VITALS: BMI 32.2
[2024-11-21 14:30] LABS: Hemoglobin A1C% w Est Avg Glu 6.4 % (4.0-6.0)
[2024-11-21 15:05] LABS: Blood Urea Nitrogen 18 mg/dL (7-17); Calcium 9.8 mg/dL (8.4-10.2); Carbon Dioxide 28 mmol/L (22-32); Chloride 99 mmol/L (98-107); Estimated Glomerular Filt Rate 51 mL/min (>60); Glucose 126 mg/dL (70-99); HEMOLYSIS < 15 (0-50); Potassium 3.4 mmol/L (3.4-5.1); Sodium 137 mmol/L (137-145)
== END ==
PROVIDERS: Family Provider Family Medicine; PCP Family Medicine; Referring Provider Family Medicine; Visit Provider Family Medicine
DX: E11.42 Type 2 diabetes mellitus with diabetic polyneuropathy (principal); N18.30 Chronic kidney disease, stage 3 unspecified; I10 Essential (primary) hypertension
CPT/HCPCS: 36415; 80048; 83036